=== PATIENT | female | born 1950 | race Caucasian/White ===

== ENCOUNTER → 2020-04-06 | Outpatient (CLI) | payer MEDICARE ==
--- NOTE | 2020-04-06 11:17 | MM ---
Reason for exam: clinical finding. Last mammogram was performed 10 years and 2 months ago. History: Patient is postmenopausal and had first child at age 33. Benign core biopsy of the right breast, 1976. Physical Findings: Nurse Summary: 0.5cm nodule in the left breast at 9 o'clock (nurse kamlesh). MG 3D Diag Mammo W/Cad LUPE Bilateral CC and MLO view(s) were taken. Prior study comparison: February 16, 2010, bilateral digital screening mammogram. January 04, 2006, workup left diagnostic mammogram. There are scattered fibroglandular densities. There are benign appearing round calcifications bilaterally. There is no discrete abnormality. Benign left axillary lymph nodes. These results were verbally communicated with the patient and result sheet given to the patient on 04/06/20. ASSESSMENT: Benign, BI-RAD 2 RECOMMENDATION: Routine screening mammogram of both breasts in 1 year.
--- NOTE | 2020-04-06 11:19 | USB ---
Reason for exam: clinical finding. History: Patient is postmenopausal and had first child at age 33. Benign core biopsy of the right breast, 1976. US Breast BILAT Left complete breast ultrasound includes all four quadrants, the retroareolar region and axilla. Finding demonstrates a 1.0 x 0.3 x 1.0cm oval, hypoechoic lesion at 8 o'clock, in dermal layer seen on previous exam, possible boil or sebaceous cyst. Right complete breast ultrasound includes all four quadrants, the retroareolar region and axilla. Finding demonstrates no cystic or solid lesion seen. These results were verbally communicated with the patient and result sheet given to the patient on 04/06/20. ASSESSMENT: Benign, BI-RAD 2 RECOMMENDATION: Routine screening mammogram of both breasts in 1 year. Manage patient on a clinical basis.
--- NOTE | 2020-04-07 11:20 | BD ---
EXAMINATION TYPE: Axial Bone Density DATE OF EXAM: 04/06/2020 COMPARISON: NONE CLINICAL HISTORY: 69 YR OLD FEMALE.......ICD-10 CODE: Z13.820 OSTEOPOROSIS SCREENING Height: 66 Weight: 243 FRAX RISK QUESTIONS: Secondary Osteoporosis: YES 3. Menopause before 45: YES Current Tobacco Use: YES RISK FACTORS HISTORY OF: Diet low in dairy products/other sources of calcium: YES, A BIT Postmenopausal woman: YES AT [age] YRS OLD Lost more than 2 inches in height since high school: YES Hyperparathyroidism: NO Adrenal Insufficiency: NO MEDICATIONS: Additional Medications: NOTHING Additional History: NOTHING TO NOTE EXAM MEASUREMENTS: Bone mineral densitometry was performed using the [employer] System. Bone mineral density as measured about the Lumbar spine is: ----- L1-L4(G/cm2): 1.690 T Score Values are as follows: ----- L1: 4.2 ----- L2: 3.9 ----- L3: 4.8 ----- L4: 3.9 ----- L1-L4: 4.3 Bone mineral density FIRST BONE DENSITY STUDY AT [facility] Bone mineral density about the R hip (g/cm2): 1.296 Bone mineral density about the L hip (g/cm2): 1.382 T Score values are as follows: -----R Neck: 1.6 -----L Neck: 2.7 -----R Total: 2.3 -----L Total: 3.0 Bone mineral density FIRST BONE DENSITY STUDY AT [facility] FRAX%S: THERE IS A 4.5% CHANCE FOR A MAJOR OSTEOPOROTIC FX AND A 0.1% FOR HIP......PROBABILITY FOR FX IN 10 YRS TIME IMPRESSION: Normal (Values between +1 and -1 indicate normal bone mass). Consider repeating this study in 5 year s or sooner if there is some new clinical indication. NOTE: T-SCORE=SD OF THE YOUNG ADULT MEAN.
== END | disposition home or self-care (01) ==
LOC: RADMAMWWP 09:23
PROVIDERS: ATTEND Family Medicine
DX: N63.20 Unspecified lump in the left breast, unspecified quadrant (principal); Z13.820 Encounter for screening for osteoporosis
CPT/HCPCS: 77080; 77066; 76641; G0279; 77062

== ENCOUNTER 2020-06-08 22:08 | Emergency (ER) | payer MEDICARE ==
[2020-06-08 22:22] VITALS: TEMP 98
[2020-06-08] MEDS ORDERED: SODIUM CHLORIDE 0.9% 1,000 ML IV STA (22:57)
[2020-06-08 23:29] LABS: Basophils # (A) 0.1 k/uL (0-0.2); Basophils % (A) 0 %; Eosinophils # (A) 0.3 k/uL (0-0.7); Eosinophils % (A) 2 %; HCT 46.4 % (34.0-46.0); HGB 16.1 gm/dL (11.4-16.0); Lymphocytes # (A) 3.1 k/uL (1.0-4.8); Lymphocytes % (A) 22 %; MCH 31.5 pg (25.0-35.0); MCHC 34.6 g/dL (31.0-37.0); MCV 90.9 fL (80.0-100.0); Monocytes # (A) 0.7 k/uL (0-1.0); Monocytes % (A) 5 %; Neutrophils # (A) 9.8 k/uL (1.3-7.7); Neutrophils % (A) 69 %; Platelet Count 208 k/uL (150-450); Poikilocytosis Slight; RDW 14.6 % (11.5-15.5); WBC 14.2 k/uL (3.8-10.6)
[2020-06-08 23:37] LABS: Appearance,Urine Turbid (Clear); Bilirubin,Urine Negative (Negative); Blood,Urine Moderate (Negative); Color,Urine Yellow; Glucose,Urine (UA) 3+ (Negative); Hyaline Casts,Urine 49 /lpf (0-2); Ketones,Urine Negative (Negative); Leukocyte Esterase,Urine Large (Negative); Mucus,Urine Few /hpf; Nitrite,Urine Negative (Negative); PH, Urine 5.5 (5.0-8.0); Protein,Urine 2+ (Negative); RBC,Urine 46 /hpf (0-5); Squamous Epithelial Cell,Urine 47 /hpf (0-4); WBC,Urine 155 /hpf (0-5)
--- NOTE | 2020-06-08 23:37 | ED ---
General Adult HPI - General Chief complaint: Urogenital Stated complaint: Poss UTI Time Seen by Provider: 06/08/20 22:27 Source: patient Mode of arrival: ambulatory Limitations: no limitations - History of Present Illness Initial comments: Patient is a 61-year-old female with no reported medical problems presents emergency Department with reported dysuria and generalized weakness. States that her symptoms have been present for the past week. She has malaise with a poor appetite. She was seen in her primary care office on . She had some labs performed however does not know the results. Reports that she otherwise she has not seen a primary care doctor in some time. Admits to chills. Denies fevers. No headaches or visual changes. Denies any neck stiffness. No chest pain or shortness of breath. No abdominal pain. Denies any abnormal vaginal bleeding or discharge. Denies diarrhea, constipation, melenic stools or hematochezia. No other alleviating, precipitating or modifying factors - Related Data Previous Rx's Medication Instructions Recorded Cephalexin [Keflex] 500 mg PO Q12HR #14 cap 06/09/20 Allergies Allergy/AdvReac Type Severity Reaction Status Date / Time No Known Allergies Allergy Verified 06/08/20 22:22 Review of Systems ROS Statement: Those systems with pertinent positive or pertinent negative responses have been documented in the HPI. ROS Other: All systems not noted in ROS Statement are negative. Past Medical History Past Medical History: No Reported History History of Any Multi-Drug Resistant Organisms: None Reported Additional Past Surgical History / Comment(s): lumpectomy right breast Past Psychological History: No Psychological Hx Reported Smoking Status: Current every day smoker Past Alcohol Use History: None Reported Past Drug Use History: None Reported General Exam Limitations: no limitations Course Vital Signs 06/08/20 06/09/20 22:19 00:00 Temperature 98.0 F Pulse Rate 94 84 Respiratory 18 21 Rate Blood Pressure 115/66 151/77 O2 Sat by Pulse 96 96 Oximetry EKG Findings - EKG Comments: EKG Findings:: EKG demonstrates a sinus rhythm with a ventricular rate of 81. P R interval 142. QRS 86. QTC of 428. No acute ST segment elevations or depressions. Inverted T-wave lead 3 Medical Decision Making - Medical Decision Making Upon arrival the patient is placed into room 22. Throat within physical exam was performed. Because the patient's reported malaise I did obtain a 12-lead EKG. Laboratory studies were conducted. She was given a liter bolus of normal saline. Lab studies are remarkable for white count of 14.2. Glucose is elevated at 345. Urinalysis is not a clean catch however grossly infected. She was given a dose of Rocephin. Patient is also given 5 units of insulin. Laboratory studies are rechecked. We will draw a hemoglobin A1c. At this time I am concerned that the patient is an untreated diabetic. She is to follow-up with her primary care physician for further treatment options. She needs to call the morning to make an appointment. She will be placed on Keflex for her UTI. Her primary care physician will have to insure that her infection has improved. The patient agreed to this. Return to the emergency room for any new or worsening symptoms for patient was discharged in stable condition - Lab Data Result diagrams: 06/08/20 23:05 06/08/20 23:05 Lab Results 06/08/20 06/08/20 06/08/20 Range/Units 23:05 23:05 23:05 WBC 14.2 H (3.8-10.6) k/uL RBC 5.10 (3.80-5.40) m/uL Hgb 16.1 H (11.4-16.0) gm/dL Hct 46.4 H (34.0-46.0) % MCV 90.9 (80.0-100.0) fL MCH 31.5 (25.0-35.0) pg MCHC 34.6 (31.0-37.0) g/dL RDW 14.6 (11.5-15.5) % Plt Count 208 (150-450) k/uL Neutrophils % 69 % Lymphocytes % 22 % Monocytes % 5 % Eosinophils % 2 % Basophils % 0 % Neutrophils # 9.8 H (1.3-7.7) k/uL Lymphocytes # 3.1 (1.0-4.8) k/uL Monocytes # 0.7 (0-1.0) k/uL Eosinophils # 0.3 (0-0.7) k/uL Basophils # 0.1 (0-0.2) k/uL Poikilocytosis Slight PT 9.6 (9.0-12.0) sec INR 0.9 (<1.2) APTT 22.3 (22.0-30.0) sec Sodium (137-145) mmol/L Potassium (3.5-5.1) mmol/L Chloride (98-107) mmol/L Carbon Dioxide (22-30) mmol/L Anion Gap mmol/L BUN (7-17) mg/dL Creatinine (0.52-1.04) mg/dL Est GFR (CKD-EPI)AfAm (>60 ml/min/1.73 sqM) Est GFR (CKD-EPI)NonAf (>60 ml/min/1.73 sqM) Glucose (74-99) mg/dL POC Glucose (mg/dL) (75-99) mg/dL POC Glu Enterprise Analyst ID Plasma Lactic Acid Tim (0.7-2.0) mmol/L Calcium (8.4-10.2) mg/dL Total Bilirubin (0.2-1.3) mg/dL AST (14-36) U/L ALT (4-34) U/L Alkaline Phosphatase (38-126) U/L Troponin I (0.000-0.034) ng/mL Total Protein (6.3-8.2) g/dL Albumin (3.5-5.0) g/dL TSH (0.465-4.680) mIU/L Urine Color Yellow Urine Appearance Turbid H (Clear) Urine pH 5.5 (5.0-8.0) Ur Specific [place] 1.020 (1.001-1.035) Urine Protein 2+ H (Negative) Urine Glucose (UA) 3+ H (Negative) Urine Ketones Negative (Negative) Urine Blood Moderate H (Negative) Urine Nitrite Negative (Negative) Urine Bilirubin Negative (Negative) Urine Urobilinogen 2.0 (<2.0) mg/dL Ur Leukocyte Esterase Large H (Negative) Urine RBC 46 H (0-5) /hpf Urine WBC 155 H (0-5) /hpf Urine WBC Clumps Few H (None) /hpf Ur Squamous Epith Cells 47 H (0-4) /hpf Hyaline Casts 49 H (0-2) /lpf Urine Mucus Few H (None) /hpf 06/08/20 06/08/20 06/08/20 Range/Units 23:05 23:05 23:05 WBC (3.8-10.6) k/uL RBC (3.80-5.40) m/uL Hgb (11.4-16.0) gm/dL Hct (34.0-46.0) % MCV (80.0-100.0) fL MCH (25.0-35.0) pg MCHC (31.0-37.0) g/dL RDW (11.5-15.5) % Plt Count (150-450) k/uL Neutrophils % % Lymphocytes % % Monocytes % % Eosinophils % % Basophils % % Neutrophils # (1.3-7.7) k/uL Lymphocytes # (1.0-4.8) k/uL Monocytes # (0-1.0) k/uL Eosinophils # (0-0.7) k/uL Basophils # (0-0.2) k/uL Poikilocytosis PT (9.0-12.0) sec INR (<1.2) APTT (22.0-30.0) sec Sodium 132 L (137-145) mmol/L Potassium 3.9 (3.5-5.1) mmol/L Chloride 99 (98-107) mmol/L Carbon Dioxide 25 (22-30) mmol/L Anion Gap 8 mmol/L BUN 16 (7-17) mg/dL Creatinine 1.07 H (0.52-1.04) mg/dL Est GFR (CKD-EPI)AfAm 62 (>60 ml/min/1.73 sqM) Est GFR (CKD-EPI)NonAf 54 (>60 ml/min/1.73 sqM) Glucose 345 H (74-99) mg/dL POC Glucose (mg/dL) (75-99) mg/dL POC Glu Enterprise Analyst ID Plasma Lactic Acid Tim 1.7 (0.7-2.0) mmol/L Calcium 8.9 (8.4-10.2) mg/dL Total Bilirubin 0.7 (0.2-1.3) mg/dL AST 27 (14-36) U/L ALT 32 (4-34) U/L Alkaline Phosphatase 94 (38-126) U/L Troponin I <0.012 (0.000-0.034) ng/mL Total Protein 6.5 (6.3-8.2) g/dL Albumin 3.9 (3.5-5.0) g/dL TSH 29.800 H (0.465-4.680) mIU/L Urine Color Urine Appearance (Clear) Urine pH (5.0-8.0) Ur Specific [place] (1.001-1.035) Urine Protein (Negative) Urine Glucose (UA) (Negative) Urine Ketones (Negative) Urine Blood (Negative) Urine Nitrite (Negative) Urine Bilirubin (Negative) Urine Urobilinogen (<2.0) mg/dL Ur Leukocyte Esterase (Negative) Urine RBC (0-5) /hpf Urine WBC (0-5) /hpf Urine WBC Clumps (None) /hpf Ur Squamous Epith Cells (0-4) /hpf Hyaline Casts (0-2) /lpf Urine Mucus (None) /hpf 06/09/20 Range/Units 01:00 WBC (3.8-10.6) k/uL RBC (3.80-5.40) m/uL Hgb (11.4-16.0) gm/dL Hct (34.0-46.0) % MCV (80.0-100.0) fL MCH (25.0-35.0) pg MCHC (31.0-37.0) g/dL RDW (11.5-15.5) % Plt Count (150-450) k/uL Neutrophils % % Lymphocytes % % Monocytes % % Eosinophils % % Basophils % % Neutrophils # (1.3-7.7) k/uL Lymphocytes # (1.0-4.8) k/uL Monocytes # (0-1.0) k/uL Eosinophils # (0-0.7) k/uL Basophils # (0-0.2) k/uL Poikilocytosis PT (9.0-12.0) sec INR (<1.2) APTT (22.0-30.0) sec Sodium (137-145) mmol/L Potassium (3.5-5.1) mmol/L Chloride (98-107) mmol/L Carbon Dioxide (22-30) mmol/L Anion Gap mmol/L BUN (7-17) mg/dL Creatinine (0.52-1.04) mg/dL Est GFR (CKD-EPI)AfAm (>60 ml/min/1.73 sqM) Est GFR (CKD-EPI)NonAf (>60 ml/min/1.73 sqM) Glucose (74-99) mg/dL POC Glucose (mg/dL) 327 H (75-99) mg/dL POC Glu Enterprise Analyst ID Ayla Bruce A Plasma Lactic Acid Tim (0.7-2.0) mmol/L Calcium (8.4-10.2) mg/dL Total Bilirubin (0.2-1.3) mg/dL AST (14-36) U/L ALT (4-34) U/L Alkaline Phosphatase (38-126) U/L Troponin I (0.000-0.034) ng/mL Total Protein (6.3-8.2) g/dL Albumin (3.5-5.0) g/dL TSH (0.465-4.680) mIU/L Urine Color Urine Appearance (Clear) Urine pH (5.0-8.0) Ur Specific [place] (1.001-1.035) Urine Protein (Negative) Urine Glucose (UA) (Negative) Urine Ketones (Negative) Urine Blood (Negative) Urine Nitrite (Negative) Urine Bilirubin (Negative) Urine Urobilinogen (<2.0) mg/dL Ur Leukocyte Esterase (Negative) Urine RBC (0-5) /hpf Urine WBC (0-5) /hpf Urine WBC Clumps (None) /hpf Ur Squamous Epith Cells (0-4) /hpf Hyaline Casts (0-2) /lpf Urine Mucus (None) /hpf Disposition Clinical Impression: Acute UTI, Hyperglycemia Disposition: HOME SELF-CARE Condition: Stable Instructions (If sedation given, give patient instructions): Urinary Tract Infection in Women (ED) Additional Instructions: Please follow-up with primary care doctor in regards to your elevated blood sugars. They will also need to recheck that your urinary tract symptoms have improved. Return to the emergency room for any new or worsening symptoms Prescriptions: Cephalexin [Keflex] 500 mg PO Q12HR #14 cap Is patient prescribed a controlled substance at d/c from ED?: No Referrals: Josselin Guererro MD [Primary Care Provider] - 1-2 days Time of Disposition: 01:09
[2020-06-08 23:40] LABS: Albumin 3.9 g/dL (3.5-5.0); Calcium 8.9 mg/dL (8.4-10.2); Potassium 3.9 mmol/L (3.5-5.1); Total Bilirubin 0.7 mg/dL (0.2-1.3); Total Protein 6.5 g/dL (6.3-8.2)
[2020-06-08 23:46] LABS: INR 0.9 (<1.2); Partial Thromboplastin Time 22.3 sec (22.0-30.0); Prothrombin Time 9.6 sec (9.0-12.0)
[2020-06-08] MEDS ORDERED: cefTRIAXone IN SWFI 1,000 MG/10 ML SYRINGE IVP STA (23:59)
[2020-06-08] MEDS ORDERED: SODIUM CHLORIDE 0.9% 1,000 ML IV ONE (23:59)
[2020-06-09] MEDS ORDERED: INSULIN REGULAR 100 UNIT/ML VIAL SQ ONE
[2020-06-09 00:18] VITALS: BP 151/77; PULSE 84; RESP 21
[2020-06-09 01:03] LABS: Glucose,Whole Blood 327 mg/dL (75-99)
[2020-06-09 16:18] LABS: Hemoglobin A1C 9.9 % (4.0-6.0)
== END 2020-06-09 01:24 | disposition home or self-care (01) ==
LOC: EC 22:08
DX: N39.0 Urinary tract infection, site not specified (principal); R73.9 Hyperglycemia, unspecified; F17.200 Nicotine dependence, unspecified, uncomplicated
CPT/HCPCS: 36415; 80053; 81001; 83036; 83605; 84443; 84484; 85025; 85610; 85730; 87086; 93005; 96361; 96374; 99285

== ENCOUNTER 2021-02-11 13:57 | Inpatient (IN) | payer MEDICARE ==
--- NOTE | 2021-02-11 14:15 | ED ---
General Adult HPI - General Chief complaint: Recheck/Abnormal Lab/Rx Stated complaint: SOB Time Seen by Provider: 02/11/21 14:09 Source: patient Mode of arrival: ambulatory Limitations: no limitations - History of Present Illness Initial comments: Patient is a pleasant 70-year-old female presenting to the emergency Department with dyspnea. Symptoms have progressed with the past week. Symptoms are mild at rest and worse with exertion. Family brought pulse oximeter today and pulse ox was fine however heart rate was varying between 1:30 and 160. Patient has no history of abnormal heart rate or arrhythmia. No history of lung problems. No leg pain or leg swelling. Minimal cough. No fever. - Related Data Previous Rx's Medication Instructions Recorded Cephalexin [Keflex] 500 mg PO Q12HR #14 cap 06/09/20 Allergies Allergy/AdvReac Type Severity Reaction Status Date / Time No Known Allergies Allergy Verified 02/11/21 14:05 Review of Systems ROS Statement: Those systems with pertinent positive or pertinent negative responses have been documented in the HPI. ROS Other: All systems not noted in ROS Statement are negative. Constitutional: Denies: fever, chills Eyes: Denies: eye pain ENT: Denies: ear pain Respiratory: Reports: as per HPI, cough, dyspnea Cardiovascular: Denies: chest pain, palpitations Endocrine: Reports: fatigue Gastrointestinal: Denies: abdominal pain Genitourinary: Denies: dysuria Musculoskeletal: Denies: back pain Skin: Denies: rash Neurological: Denies: weakness Past Medical History Past Medical History: Diabetes Mellitus, Thyroid Disorder History of Any Multi-Drug Resistant Organisms: None Reported Additional Past Surgical History / Comment(s): lumpectomy right breast Past Psychological History: No Psychological Hx Reported Smoking Status: Current every day smoker Past Alcohol Use History: None Reported Past Drug Use History: None Reported General Exam Limitations: no limitations General appearance: alert, in no apparent distress Head exam: Present: normocephalic Eye exam: Present: normal appearance Neck exam: Present: normal inspection Respiratory exam: Present: normal lung sounds bilaterally Cardiovascular Exam: Present: tachycardia, irregular rhythm Expanded Peripheral pulses: 2+: Radial (R), Radial (L), Posterior Tibialis (R), Posterior Tibialis (L), Dorsalis Pedis (R), Dorsalis Pedis (L) GI/Abdominal exam: Present: soft. Absent: distended, tenderness Extremities exam: Present: normal inspection. Absent: pedal edema, calf tenderness Neurological exam: Present: alert Psychiatric exam: Present: normal affect, normal mood Skin exam: Present: normal color Course Vital Signs 02/11/21 14:02 Temperature 97.6 F Pulse Rate 170 H Respiratory 20 Rate Blood Pressure 154/102 O2 Sat by Pulse 93 L Oximetry EKG Findings - EKG Comments: EKG Findings:: A. fib with RVR, weight 149. QRS 78. QT to 70. QTc 425. Right axis. Normal QRS. No acute ST change. Medical Decision Making - Medical Decision Making He should reevaluated. Patient and family updated. Case was discussed with Dr. Santamaria, who will admit covering for Dr. Garcia. Patient was started on Cardizem drip. Orders for heparin drip placed. 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 Patient is placed on account liaison secondary to monitoring for tachycardia and intrafibrillation while on Cardizem drip. - Lab Data Result diagrams: 02/11/21 14:37 02/11/21 14:37 Lab Results 02/11/21 02/11/21 02/11/21 Range/Units 14:37 14:37 14:37 WBC 11.4 H (3.8-10.6) k/uL RBC 5.00 (3.80-5.40) m/uL Hgb 15.1 (11.4-16.0) gm/dL Hct 45.8 (34.0-46.0) % MCV 91.7 (80.0-100.0) fL MCH 30.2 (25.0-35.0) pg MCHC 32.9 (31.0-37.0) g/dL RDW 15.3 (11.5-15.5) % Plt Count 191 (150-450) k/uL MPV 7.4 Neutrophils % 69 % Lymphocytes % 21 % Monocytes % 6 % Eosinophils % 3 % Basophils % 1 % Neutrophils # 7.8 H (1.3-7.7) k/uL Lymphocytes # 2.4 (1.0-4.8) k/uL Monocytes # 0.6 (0-1.0) k/uL Eosinophils # 0.3 (0-0.7) k/uL Basophils # 0.1 (0-0.2) k/uL PT 10.3 (9.0-12.0) sec INR 1.0 (<1.2) APTT 23.2 (22.0-30.0) sec Sodium 138 (137-145) mmol/L Potassium 4.6 (3.5-5.1) mmol/L Chloride 105 (98-107) mmol/L Carbon Dioxide 24 (22-30) mmol/L Anion Gap 9 mmol/L BUN 15 (7-17) mg/dL Creatinine 0.93 (0.52-1.04) mg/dL Est GFR (CKD-EPI)AfAm 73 (>60 ml/min/1.73 sqM) Est GFR (CKD-EPI)NonAf 63 (>60 ml/min/1.73 sqM) Glucose 105 H (74-99) mg/dL Calcium 9.4 (8.4-10.2) mg/dL Magnesium 2.0 (1.6-2.3) mg/dL Total Bilirubin 0.6 (0.2-1.3) mg/dL AST 42 H (14-36) U/L ALT 68 H (4-34) U/L Alkaline Phosphatase 78 (38-126) U/L Troponin I (0.000-0.034) ng/mL NT-Pro-B Natriuret Pep pg/mL Total Protein 6.6 (6.3-8.2) g/dL Albumin 4.2 (3.5-5.0) g/dL Free T4 1.35 (0.78-2.19) ng/dL Free T3 pg/mL 2.9 (2.8-5.3) pg/ml Coronavirus (PCR) (Not Detectd) 02/11/21 02/11/21 02/11/21 Range/Units 14:37 14:37 14:37 WBC (3.8-10.6) k/uL RBC (3.80-5.40) m/uL Hgb (11.4-16.0) gm/dL Hct (34.0-46.0) % MCV (80.0-100.0) fL MCH (25.0-35.0) pg MCHC (31.0-37.0) g/dL RDW (11.5-15.5) % Plt Count (150-450) k/uL MPV Neutrophils % % Lymphocytes % % Monocytes % % Eosinophils % % Basophils % % Neutrophils # (1.3-7.7) k/uL Lymphocytes # (1.0-4.8) k/uL Monocytes # (0-1.0) k/uL Eosinophils # (0-0.7) k/uL Basophils # (0-0.2) k/uL PT (9.0-12.0) sec INR (<1.2) APTT (22.0-30.0) sec Sodium (137-145) mmol/L Potassium (3.5-5.1) mmol/L Chloride (98-107) mmol/L Carbon Dioxide (22-30) mmol/L Anion Gap mmol/L BUN (7-17) mg/dL Creatinine (0.52-1.04) mg/dL Est GFR (CKD-EPI)AfAm (>60 ml/min/1.73 sqM) Est GFR (CKD-EPI)NonAf (>60 ml/min/1.73 sqM) Glucose (74-99) mg/dL Calcium (8.4-10.2) mg/dL Magnesium (1.6-2.3) mg/dL Total Bilirubin (0.2-1.3) mg/dL AST (14-36) U/L ALT (4-34) U/L Alkaline Phosphatase (38-126) U/L Troponin I <0.012 (0.000-0.034) ng/mL NT-Pro-B Natriuret Pep 3350 pg/mL Total Protein (6.3-8.2) g/dL Albumin (3.5-5.0) g/dL Free T4 (0.78-2.19) ng/dL Free T3 pg/mL (2.8-5.3) pg/ml Coronavirus (PCR) Not Detected (Not Detectd) - Radiology Data Radiology results: image reviewed (Chest x-ray shows small bilateral pleural effusions and concern for CHF. Mild pulmonary congestion.) Critical Care Time Critical Care Time: Yes Total Critical Care Time: 33 Disposition Clinical Impression: Atrial fibrillation with RVR, CHF (congestive heart failure) Disposition: ADMITTED IP TO THIS HOSP Is patient prescribed a controlled substance at d/c from ED?: No Decision Time: 15:12
[2021-02-11] MEDS ORDERED: DILTIAZEM DRIP BOLUS FROM BAG 1 MG SOLN IV ONE (14:18)
[2021-02-11] MEDS: DILTIAZEM 125 MG in SODIUM CHLORIDE 0.9% 100 ML IV SCH (14:44)
[2021-02-11 14:47] LABS: Basophils # (A) 0.1 k/uL (0-0.2); Basophils % (A) 1 %; Eosinophils # (A) 0.3 k/uL (0-0.7); Eosinophils % (A) 3 %; HCT 45.8 % (34.0-46.0); HGB 15.1 gm/dL (11.4-16.0); Lymphocytes # (A) 2.4 k/uL (1.0-4.8); Lymphocytes % (A) 21 %; MCH 30.2 pg (25.0-35.0); MCHC 32.9 g/dL (31.0-37.0); MCV 91.7 fL (80.0-100.0); Mean Platelet Volume 7.4; Monocytes # (A) 0.6 k/uL (0-1.0); Monocytes % (A) 6 %; Neutrophils # (A) 7.8 k/uL (1.3-7.7); Neutrophils % (A) 69 %; Platelet Count 191 k/uL (150-450); RDW 15.3 % (11.5-15.5); WBC 11.4 k/uL (3.8-10.6)
[2021-02-11 14:57] LABS: Albumin 4.2 g/dL (3.5-5.0); Calcium 9.4 mg/dL (8.4-10.2); Partial Thromboplastin Time 23.2 sec (22.0-30.0); Potassium 4.6 mmol/L (3.5-5.1); Prothrombin Time 10.3 sec (9.0-12.0); Total Bilirubin 0.6 mg/dL (0.2-1.3); Total Protein 6.6 g/dL (6.3-8.2)
--- NOTE | 2021-02-11 15:01 | XR ---
EXAMINATION TYPE: XR chest 1V portable DATE OF EXAM: 02/11/2021 COMPARISON: NONE HISTORY: Short of breath TECHNIQUE: Single view FINDINGS: Heart is enlarged. There is mild pulmonary congestion. There is some blunting of the costop hrenic angles. Thoracic aorta is atheromatous. There are chest leads. IMPRESSION: Mild Congestive heart failure. Bilateral pleural effusions.
[2021-02-11] MEDS ORDERED: ASPIRIN 325 MG TAB PO STA (15:13)
[2021-02-11 15:14] LABS: T4, Free (Free Thyroxine) 1.35 ng/dL (0.78-2.19)
[2021-02-11] MEDS ORDERED: HEPARIN SODIUM 1,000 UN/ML (10ML VL) IV ONE (15:14)
[2021-02-11] MEDS ORDERED: HEPARIN SODIUM 1,000 UN/ML (10ML VL) IV PRN (15:14)
[2021-02-11] MEDS ORDERED: HEPARIN SOD,PORK IN 0.45% NACL 25,000 UNIT in 0.45% NACL 1 250ML.BAG IV SCH (15:15)
[2021-02-11] MEDS: FUROSEMIDE 10 MG/ML 4 ML VIAL IV SCH (16:30)
[2021-02-11] MEDS: NITROGLYCERIN OINT 1 INCH/GM PACKET TOPICAL SCH ×2 (19:32→22:26)
[2021-02-11 20:25] LABS: Glucose,Whole Blood 101 mg/dL (75-99)
[2021-02-11 22:09] LABS: D-Dimer 0.7 mg/L FEU (<0.60); Partial Thromboplastin Time 35.8 sec (22.0-30.0)
--- NOTE | 2021-02-11 23:19 | HP ---
HISTORY AND PHYSICAL DATE OF SERVICE: 02/11/2021 CHIEF COMPLAINTS: Tiredness and weakness and some shortness of breath. HISTORY OF PRESENT ILLNESS: This 70-year-old woman with a past medical history of multiple medical problems including diabetes, hypothyroidism, lumpectomy being followed by Dr. Gilmore ) and Dr. Josselin Guerrero in the outpatient setting, is complaining of tiredness and weakness for the last several days. The symptoms progressed for the last one week and the patient came to [facility] and admitted for further evaluation and treatment. The heart rate was found to be 113 in 116 on the pulse oximeter. The patient noted to have atrial fibrillation with fast ventricular rate. The patient is on Cardizem 5 mg and the rate is slightly better, around 100. White count is 11.4. COVID-19 is negative. TSH was found to be 6.660 but free T4 and free T3 both are normal. Troponins are negative. There is no history of fever, rigors or chills at this time. PAST MEDICAL HISTORY: History of diabetes, hypothyroidism, lumpectomy, history of smoking. HOME MEDICATIONS: Levothyroxine 88 mcg daily. ALLERGIES: None. FAMILY HISTORY: No history of heart disease or strokes in the family. SOCIAL HISTORY: Smoking. REVIEW OF SYSTEMS: ENT No history of diminished hearing or vision. CARDIOVASCULAR As mentioned earlier. RESPIRATORY No cough, no hemoptysis. GI No nausea, vomiting, or diarrhea. No dysuria or hematuria. NERVOUS No numbness or weakness. ALLERGY/IMMUNOLOGY No asthma or hayfever. MUSCULOSKELETAL As mentioned earlier. HEMATOLOGY/ONCOLOGY Negative. ENDOCRINE As mentioned earlier. CONSTITUTIONAL As mentioned earlier. DERMATOLOGY Negative. RHEUMATOLOGY Negative, PSYCHIATRY As mentioned earlier. PHYSICAL EXAMINATION: Alert and oriented x3. Pulse is 115, irregular. Blood pressure 100/60, respiration 18, temperature 98.9, pulse ox 100% on 2 L. HEENT: Conjunctivae normal. Oral mucosa moist. NECK: No jugular venous distention. No lymph node enlargement. CARDIOVASCULAR: S1, S2, muffled. No S3, no S4, RESPIRATORY: Diminished breath sounds at the bases. A few scattered rhonchi and crackles. ABDOMEN: Soft, nontender. LEGS: No edema, no swelling. NERVOUS SYSTEM: Higher functions mentioned earlier. Moves all four limbs. No focal motor or sensory deficits. LYMPHATICS: No lymph node in neck or axilla. SKIN: No rash. JOINTS: No active deforming arthropathy. LABS: WBC 11.4. Otherwise, AST is 43, ALT is 48. TSH is noted. ASSESSMENT: 1. Atrial fibrillation with fast ventricular rate. 2. Shortness of breath, for evaluation. 3. Increased WBC. 4. Elevated AST/ALT, mild hepatitis. 5. Elevated TSH, normal free T3 and free T4. 6. Hypothyroidism. 7. Diabetes mellitus type 2. 8. History of continued ongoing nicotine dependence. 9. Lumpectomy, right breast. 10.Obesity with body mass of 34.5. 11.FULL CODE. RECOMMENDATIONS: In this 70-year-old woman who presented with multiple complex medical issues, we will monitor the patient closely, continue the current management, continue symptomatic treatment. Patient started on Cardizem 5 mg. Cardiology consultation, 2D echo with Doppler. I would also recommend D-dimer. If D-dimer is positive I would recommend a CT angio of the chest. Otherwise, we will resume the home medications. Prognosis guarded because of multiple complex medical issues. Further recommendations to follow. MMODL / IJN: [id number] /
[2021-02-12 02:59] LABS: Appearance,Urine Cloudy (Clear); Bacteria,Urine Rare /hpf; Bilirubin,Urine Negative (Negative); Blood,Urine Negative (Negative); Color,Urine Light Yellow; Glucose,Urine (UA) Negative (Negative); Ketones,Urine Negative (Negative); Leukocyte Esterase,Urine Trace (Negative); Mucus,Urine Rare /hpf; Nitrite,Urine Negative (Negative); PH, Urine 5.5 (5.0-8.0); Protein,Urine Negative (Negative); RBC,Urine 1 /hpf (0-5); Specific Gravity,Urine 1.009 (1.001-1.035); Squamous Epithelial Cell,Urine 12 /hpf (0-4); Urobilinogen,Urine <2.0 mg/dL (<2.0); WBC,Urine 3 /hpf (0-5)
[2021-02-12] MEDS: FUROSEMIDE 10 MG/ML 4 ML VIAL IV SCH ×2 (03:22→18:09)
[2021-02-12 06:05] LABS: Glucose,Whole Blood 113 mg/dL (75-99)
[2021-02-12 06:09] LABS: Basophils # (A) 0.1 k/uL (0-0.2); Basophils % (A) 1 %; Eosinophils # (A) 0.3 k/uL (0-0.7); Eosinophils % (A) 3 %; HGB 14.5 gm/dL (11.4-16.0); Lymphocytes # (A) 2.4 k/uL (1.0-4.8); Lymphocytes % (A) 26 %; MCH 31.4 pg (25.0-35.0); MCHC 34.5 g/dL (31.0-37.0); Mean Platelet Volume 7.2; Monocytes # (A) 0.5 k/uL (0-1.0); Monocytes % (A) 5 %; Neutrophils # (A) 5.7 k/uL (1.3-7.7); Neutrophils % (A) 62 %; Platelet Count 166 k/uL (150-450); Poikilocytosis Slight; RBC 4.62 m/uL (3.80-5.40); RDW 15.3 % (11.5-15.5); WBC 9.1 k/uL (3.8-10.6)
[2021-02-12] MEDS: LEVOTHYROXINE 88 MCG TAB PO SCH (06:14)
[2021-02-12 06:34] LABS: INR 1.1 (<1.2); Partial Thromboplastin Time 43.7 sec (22.0-30.0); Prothrombin Time 11.2 sec (9.0-12.0)
[2021-02-12] MEDS: NITROGLYCERIN OINT 1 INCH/GM PACKET TOPICAL SCH (08:49)
[2021-02-12] MEDS: APIXABAN 5 MG TAB PO SCH ×2 (11:17→20:40)
[2021-02-12] MEDS: METOPROLOL TARTRATE 50 MG TAB PO SCH ×2 (11:17→20:39)
--- NOTE | 2021-02-12 13:00 | P.CRDCN ---
History of Present Illness Consult date: 02/12/21 Consult reason: atrial fibrillation History of present illness: The patient is a 70-year-old female with past medical history of hypothyroidism and current smoker, who presented to the emergency room with worsening shortness of breath. Patient states over the last week/week and a half she had developed worsening shortness of breath. She believes this was associated to her smoking history and was making an effort to quit. Her family purchased a pulse oximeter to check her oxygen, when he noted that her heart rates or jumping between the 1 40s to 160s. She then presented to the emergency room, where she was found to be in A. fib with RVR. The patient states she does have a family history of atrial fibrillation as well as a brother with coronary artery disease. She states she has not had any cardiac history. Previously she was diabetic, however dropped her hemoglobin A1c to 5.5 with diet alone. She states she is feeling better since her arrival. No chest pain or chest pressure. No shortness of breath when ambulating to the bathroom, however she has yet to ambulate in the halls. No orthopnea. No palpitations or heart fluttering. No dizziness, or lightheadedness. DIAGNOSTICS: EKG shows A. fib with RVR with a heart rate of 149 Chest x-ray shows mild congestive heart failure with bilateral pleural effusions Laboratory data shows WBC 9.1, hemoglobin 14.5, hematocrit 42.0, platelet 166, d-dimer 0.70, sodium 138, potassium 4.6, BUN 15, creatinine 0.93, AST 42, ALT 68, troponins less than 0.012, BNP 3350, TSH 6.66, kerr virus testing negative Telemetry overnight shows average heart rates in the low 100s on Cardizem drip PAST MEDICAL HISTORY: Current smoker, hypothyroidism, diabetes mellitus controlled with diet and exercise REVIEW OF SYSTEMS: No fever or chills. No cough or expectoration. No diaphoresis. Patient denies headache, dizziness, blurred vision, double vision. Patient denies any stomach discomfort. No nausea, vomiting. No hematochezia. No hematemesis. Denies any black stools or blood in his stools. Denies dysuria or hematuria. No muscle weakness or numbness. Mild shortness of breath. No chest pain or chest pressure PHYSICAL EXAMINATION: This is a 70-year-old female in no apparent distress at the time of my examination. HEENT: Head is atraumatic, normocephalic. Pupils are equal, round. Sclerae anicteric. Conjunctivae are clear. Mucous membranes of the mouth are moist. Neck is supple. There is no jugular venous distention. No carotid bruit is heard. CHEST EXAMINATION: Lungs are clear to auscultation. No chest wall tenderness is noted on palpation or with deep breathing. HEART EXAMINATION: Heart regular rate and rhythm. S1, S2 heard. No murmurs, gallops or rub. ABDOMEN: Soft, nontender. Bowel sounds are heard. No organomegaly noted. EXTREMITIES: 2+ peripheral pulses with no evidence of peripheral edema and no calf tenderness noted. NEUROLOGIC EXAMINATION: Patient is awake, alert and oriented x3. FINAL ASSESSMENT AND PLAN: New onset A. fib with RVR Congestive heart failure, BNP 3300 Hypothyroidism, TSH 6.6 Current smoker Obesity, BMI 35 History of diabetes PLAN: Transition the patient to oral anticoagulation Start metoprolol 50 mg twice daily Gradually wean off Cardizem drip as tolerated for rate control Further recommendations based on clinical course The patient has been seen and evaluated. Plan of care has been reviewed and agreed upon by Dr Galvan. Past Medical History Past Medical History: Diabetes Mellitus, Thyroid Disorder History of Any Multi-Drug Resistant Organisms: None Reported Additional Past Surgical History / Comment(s): lumpectomy right breast Past Anesthesia/Blood Transfusion Reactions: No Reported Reaction Past Psychological History: No Psychological Hx Reported Smoking Status: Current every day smoker Past Alcohol Use History: None Reported Past Drug Use History: None Reported Medications and Allergies Home Medications Medication Instructions Recorded Confirmed Type Levothyroxine Sodium [Synthroid] 88 mcg PO DAILY 02/11/21 02/11/21 History Allergies Allergy/AdvReac Type Severity Reaction Status Date / Time No Known Allergies Allergy Verified 02/11/21 15:29 Physical Exam Vitals: Vital Signs Temp Pulse Pulse Resp BP BP Pulse Ox 02/12/21 03:44 97.9 F 89 18 116/51 97 02/12/21 01:04 75 20 02/11/21 23:25 98.3 F 75 20 109/61 93 L 02/11/21 20:00 97.9 F 103 H 18 117/62 94 L 02/11/21 19:32 98 18 124/62 98 02/11/21 19:15 98 18 101/88 98 02/11/21 17:42 96.9 F L 115 H 18 123/68 100 02/11/21 16:39 135 H 18 132/62 96 02/11/21 16:19 97.9 F 103 H 18 117/62 94 L 02/11/21 14:02 97.6 F 170 H 20 154/102 93 L Intake and Output 02/11/21 02/12/21 02/12/21 22:59 06:59 14:59 Intake Total 94.196 240 Output Total 1999 Balance 94.196 -1999 240 Intake: Intake, IV Titration 94.196 Amount Diltiazem 125 mg In 34.833 Sodium Chloride 0.9% 100 ml @ 5 MG/HR 5 mls/hr IV .Q24H [facility] Rx#:[id number] Heparin Sod,Pork in 0.45% 59.363 NaCl 25,000 unit In 0.45 % NaCl 1 250ml.bag @ 9.59 UNITS/KG/HR 10.005 mls/ hr IV .Q24H [facility] Rx#: [id number] Oral 240 Output: Urine 1999 Other: Voiding Method Toilet Toilet Weight 104.326 kg 105.5 kg Results 02/12/21 05:44 02/11/21 14:37 Cardiac Enzymes 02/11/21 02/11/21 02/11/21 Range/Units 14:37 14:37 15:41 AST 42 H (14-36) U/L Troponin I <0.012 <0.012 (0.000-0.034) ng/mL 02/11/21 Range/Units 18:46 AST (14-36) U/L Troponin I <0.012 (0.000-0.034) ng/mL Coagulation 02/11/21 02/11/21 02/12/21 Range/Units 14:37 21:05 05:44 PT 10.3 11.2 (9.0-12.0) sec APTT 23.2 35.8 H 43.7 H (22.0-30.0) sec CBC 02/11/21 02/12/21 Range/Units 14:37 05:44 WBC 11.4 H 9.1 (3.8-10.6) k/uL RBC 5.00 4.62 (3.80-5.40) m/uL Hgb 15.1 14.5 (11.4-16.0) gm/dL Hct 45.8 42.0 (34.0-46.0) % Plt Count 191 166 (150-450) k/uL Comprehensive Metabolic Panel 02/11/21 Range/Units 14:37 Sodium 138 (137-145) mmol/L Potassium 4.6 (3.5-5.1) mmol/L Chloride 105 (98-107) mmol/L Carbon Dioxide 24 (22-30) mmol/L BUN 15 (7-17) mg/dL Creatinine 0.93 (0.52-1.04) mg/dL Glucose 105 H (74-99) mg/dL Calcium 9.4 (8.4-10.2) mg/dL AST 42 H (14-36) U/L ALT 68 H (4-34) U/L Alkaline Phosphatase 78 (38-126) U/L Total Protein 6.6 (6.3-8.2) g/dL Albumin 4.2 (3.5-5.0) g/dL Current Medications Generic Name Dose Route Start Last Admin Trade Name Freq PRN Reason Stop Dose Admin Apixaban 5 mg 02/12/21 11:00 02/12/21 11:17 Apixaban 5 Mg Tab PO 5 mg BID [facility] Administration Furosemide 40 mg 02/11/21 16:00 02/12/21 03:22 Furosemide 10 Mg/Ml 4 Ml Vial IV 40 mg Q12H [facility] Administration Diltiazem HCl 125 mg/ Sodium 125 mls @ 5 mls/hr 02/11/21 14:30 02/11/21 19:10 Chloride IV 5 mg/hr .Q24H [facility] 5 mls/hr Infusion 5 MG/HR Levothyroxine Sodium 88 mcg 02/12/21 06:30 02/12/21 06:14 Levothyroxine 88 Mcg Tab PO 88 mcg DAILY@0630 [facility] Administration Metoprolol Tartrate 50 mg 02/12/21 11:00 02/12/21 11:17 Metoprolol Tartrate 50 Mg Tab PO 50 mg BID [facility]ARIS Administration Sodium Chloride 10 ml 02/11/21 21:00 02/11/21 21:39 Sodium Chloride 0.9% Flush 10 Ml Syringe IV Not Given BID [facility]ARIS Intake and Output 05/02/12/21 02/12/21 22:59 06:59 14:59 Intake Total 94.196 240 Output Total 1999 Balance 94.196 -1999 240 Intake: Intake, IV Titration 94.196 Amount Diltiazem 125 mg In 34.833 Sodium Chloride 0.9% 100 ml @ 5 MG/HR 5 mls/hr IV .Q24H [facility] Rx#:[id number] Heparin Sod,Pork in 0.45% 59.363 NaCl 25,000 unit In 0.45 % NaCl 1 250ml.bag @ 9.59 UNITS/KG/HR 10.005 mls/ hr IV .Q24H [facility] Rx#: [id number] Oral 240 Output: Urine 1999 Other: Voiding Method Toilet Toilet Weight 104.326 kg 105.5 kg 02/12/21 05:44 02/11/21 14:37
[2021-02-12 13:33] VITALS: BMI 35.9
[2021-02-12 16:16] LABS: Chol/HDL Ratio 5.42
--- NOTE | 2021-02-12 17:56 | PN ---
PROGRESS NOTE DATE OF SERVICE: 02/12/2021 This is a 70-year-old woman who was admitted with atrial fibrillation with fast ventricular rate. The patient is on Cardizem as well as was given heparin overnight. Cardiology saw the patient and the patient has been started on Eliquis at this time. No chest pain. No palpitations. No fever. PHYSICAL EXAMINATION: Alert and oriented x3. Pulse 80, irregular; blood pressure 124/70, respiration 18, temperature 98.2, pulse ox 98% on room air. HEENT: Conjunctivae normal. Oral mucosa moist. NECK: No jugular venous distention. No lymph node enlargement. CARDIOVASCULAR: S1, S2, muffled. No S3, no S4, RESPIRATORY: Diminished breath sounds at the bases. A few scattered rhonchi. ABDOMEN: Soft. NERVOUS SYSTEM: No focal deficits. LABS: CBC within normal limits. D-dimer is 0.7. UA noted, no evidence of UTI. ASSESSMENT: 1. Atrial fibrillation with fast ventricular rate, paroxysmal. 2. Shortness of breath for evaluation. 3. Increased WBC. 4. Elevated AST/ALT, mild hepatitis. 5. Elevated TSH, normal free T3 and free T4. 6. Hypothyroidism. 7. Diabetes mellitus type 2. 8. History of continued ongoing nicotine dependence. 9. Lumpectomy, right breast. 10.Obesity with body mass index 34.4. 11.FULL CODE. RECOMMENDATIONS AND DISCUSSION: Recommend to continue current medications and symptomatic treatment. Otherwise, 2D echo is pending at this time. Continue with Cardizem drip and as well as Eliquis. Guarded prognosis. Further recommendations to follow. MMODL / IJN: [id number] /
[2021-02-12 19:37] LABS: Glucose,Whole Blood 109 mg/dL (75-99)
[2021-02-12] MEDS: DILTIAZEM 125 MG in SODIUM CHLORIDE 0.9% 100 ML IV SCH (20:39)
[2021-02-13 05:01] VITALS: TEMP 97.8
[2021-02-13 05:44] LABS: Glucose,Whole Blood 114 mg/dL (75-99)
[2021-02-13] MEDS: LEVOTHYROXINE 88 MCG TAB PO SCH (06:09)
[2021-02-13] MEDS: FUROSEMIDE 10 MG/ML 4 ML VIAL IV SCH (06:09)
[2021-02-13] MEDS ORDERED: ASPIRIN 325 MG TAB PO SCH (09:00)
[2021-02-13] MEDS: METOPROLOL TARTRATE 50 MG TAB PO SCH (09:01)
[2021-02-13] MEDS: APIXABAN 5 MG TAB PO SCH (09:02)
[2021-02-13] MEDS ORDERED: METOPROLOL TARTRATE 25 MG TAB PO STA (10:11)
--- NOTE | 2021-02-13 11:19 | ECHOF ---
Referral Reason:AFIB MEASUREMENTS -------- HEIGHT: 170.2 cm WEIGHT: 105.2 kg BP: RVIDd: 2.7 cm (< 3.3) IVSd: 1.1 cm (0.6 - 1.1) LVIDd: 4.0 cm (3.9 - 5.3) LVPWd: 1.3 cm (0.6 - 1.1) IVSs: 1.5 cm LVIDs: 2.6 cm LVPWs: 1.8 cm LAESV Index (A-L): 39.59 ml/m Ao Diam: 3.3 cm (2.0 - 3.7) AV Cusp: 1.8 cm (1.5 - 2.6) LA Diam: 4.2 cm (2.7 - 3.8) RAP: 5.00 mmHg RVSP: 29.71 mmHg FINDINGS -------- This was a technically good study. The left ventricular size is normal. Left ventricular wall thickness is normal. There is moderate global hypokinesis of LV . Overall left ventricular systolic function is severely impaired with, a n EF between 25 - 30 %. Left ventricular fillimg pressure cannot be estimated due to Atrial fibrill ation. The right ventricle is normal in size. LA is severely dilated >40 ml/m2 The right atrial size is normal. The aortic valve is trileaflet and appears structurally normal. The mitral valve is normal. Mild mitral regurgitation is present. The tricuspid valve appears structurally normal. Mild tricuspid regurgitation present. Right vent ricular systolic pressure is normal at < 35 mmHg. There is no pulmonic regurgitation present. The aortic root size is normal. Normal inferior vena cava with normal inspiratory collapse consistent with estimated right atrial pre ssure of 5 mmHg. There is no pericardial effusion. CONCLUSIONS -------- 1. The left ventricular size is normal. 2. Left ventricular wall thickness is normal. 3. There is moderate global hypokinesis of LV . 4. Left ventricular fillimg pressure cannot be estimated due to Atrial fibrillation. 5. LA is severely dilated >40 ml/m2 6. Mild mitral regurgitation is present. 7. Mild tricuspid regurgitation present. 8. There is no pericardial effusion. [employer]: Vaishnavi Kincaid RDCS
[2021-02-13 11:54] LABS: Glucose,Whole Blood 98 mg/dL (75-99)
--- NOTE | 2021-02-13 11:55 | P.PN ---
Subjective Progress Note Date: 02/13/21 The patient is a 70-year-old female with past medical history of hypothyroidism and current smoker, who presented to the emergency room with worsening shortness of breath. Patient states over the last week/week and a half she had developed worsening shortness of breath. She believes this was associated to her smoking history and was making an effort to quit. Her family purchased a pulse oximeter to check her oxygen, when he noted that her heart rates or jumping between the 140s to 160s. She then presented to the emergency room, where she was found to be in A. fib with RVR. 02/12/21 Patient was started on metoprolol in addition to her Cardizem drip. Drip was weaned off overnight. She was transitioned to oral anticoagulation. 02/13/21 No chest pain or chest pressure. No shortness of breath. No orthopnea. No palpitations or heart fluttering. No dizziness, or lightheadedness. The patie nt ambulated in with Dr. Galvan. The patient did not develop any significant shortness of breath. Rates her reasonably well controlled. DIAGNOSTICS: EKG shows A. fib with RVR with a heart rate of 149 Chest x-ray shows mild congestive heart failure with bilateral pleural effusions Echocardiogram shows reduced LV function 40-45% with global hypokinesis Laboratory data shows WBC 9.1, hemoglobin 14.5, hematocrit 42.0, platelet 166, d-dimer 0.70, sodium 138, potassium 4.6, BUN 15, creatinine 0.93, AST 42, ALT 68, troponins less than 0.012, BNP 3350, TSH 6.66, kerr virus testing negative PAST MEDICAL HISTORY: Current smoker, hypothyroidism, diabetes mellitus controlled with diet and exercise REVIEW OF SYSTEMS: No fever or chills. No cough or expectoration. No diaphoresis. Patient denies headache, dizziness, blurred vision, double vision. Patient denies any stomach discomfort. No nausea, vomiting. No hematochezia. No hematemesis. Denies any black stools or blood in his stools. Denies dysuria or hematuria. No muscle weakness or numbness. Mild shortness of breath. No chest pain or chest pressure PHYSICAL EXAMINATION: This is a 70-year-old female in no apparent distress at the time of my examination. HEENT: Head is atraumatic, normocephalic. Pupils are equal, round. Sclerae ani cteric. Conjunctivae are clear. Mucous membranes of the mouth are moist. Neck is supple. There is no jugular venous distention. No carotid bruit is heard. CHEST EXAMINATION: Lungs are clear to auscultation. No chest wall tenderness is noted on palpation or with deep breathing. HEART EXAMINATION: Heart rate irregular. S1, S2 heard. No murmurs, gallops or rub. ABDOMEN: Soft, nontender. Bowel sounds are heard. No organomegaly noted. EXTREMITIES: 2+ peripheral pulses with no evidence of peripheral edema and no calf tenderness noted. NEUROLOGIC EXAMINATION: Patient is awake, alert and oriented x3. VITALS: 98/55, heart rate 77, respiratory rate 16, temperature 97.8F FINAL ASSESSMENT AND PLAN: New onset A. fib with RVR, rate improved with beta paz, weaned off Cardizem drip Congestive heart failure, LV function 40-45%, shortness of breath improved Hypothyroidism, TSH 6.6, increase levothyroxine Current smoker Obesity, BMI 35 History of diabetes PLAN: Increase beta blockers 75 mg twice daily Increase levothyroxine to 100 g daily Continue novel anticoagulation Patient may be discharged from a cardiac standpoint with follow-up in office in 2-[address] Galvan The patient has been seen and evaluated. Plan of care has been reviewed and agreed upon by Dr Galvan. Objective - Vital Signs Vital signs: Vital Signs Temp 97.8 F 02/13/21 04:00 Pulse 77 02/13/21 04:00 Resp 16 02/13/21 04:00 BP 98/55 02/13/21 04:00 Pulse Ox 94 L 02/13/21 04:00 Intake & Output 02/12/21 02/13/21 02/13/21 18:59 06:59 18:59 Intake Total 810.167 606.75 120 Output Total 100 500 Balance 710.167 106.75 120 Weight 105.5 kg 102.3 kg Intake: Intake, IV Titration 90.167 6.75 Amount Diltiazem 125 mg In 90.167 6.75 Sodium Chloride 0.9% 100 ml @ 5 MG/HR 5 mls/hr IV .Q24H [facility] Rx#:[id number] Oral 720 120 Blood Product 600 Output: Urine 100 500 Other: Voiding Method Toilet Toilet # Voids 1 - Labs CBC & Chem 7: 02/12/21 05:44 02/11/21 14:37 Labs: Abnormal Lab Results - Last 24 Hours (Table) 02/12/21 02/12/21 02/13/21 Range/Units 05:44 19:35 05:42 POC Glucose (mg/dL) 109 H 114 H (75-99) mg/dL HDL Cholesterol 26.0 L (40.0-60.0) mg/dL
[2021-02-13 13:59] VITALS: RESP 18
[2021-02-13 14:01] VITALS: BP 113/58; PULSE 78
--- NOTE | 2021-02-13 19:57 | DS ---
DISCHARGE SUMMARY DATE OF SERVICE: 02/13/2021 FINAL DIAGNOSES: 1. Atrial fibrillation with fast ventricular rate paroxysmal. 2. Shortness of breath, possibly cardiomyopathy, possibly tachycardia related. 3. Increased WBC. 4. Elevated AST/ALT and mild hepatitis. 5. Elevated TSH, normal free T3 and T4. 6. Hypothyroidism. 7. Diabetes mellitus type 2. 8. History of continued ongoing nicotine dependence. 9. Lumpectomy, right breast history. 10.Obesity with body mass index 34.4. 11.FULL CODE. DISCHARGE DISPOSITION: The patient will be discharged in stable condition with guarded prognosis. Discharge cleared by Cardiology. HISTORY OF PRESENT ILLNESS: This 70-year-old woman with a past history of multiple medical problems was admitted with atrial fibrillation and multiple other medical problems as mentioned earlier. Cardiology started treating the patient with Cardizem and as well as heparin. The patient improved significantly. Patient will be discharged in stable condition with guarded prognosis. 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 Recommend close followup with primary physician and Cardiology in the outpatient setting. On exam, vitals are stable. Cardiovascular: S1, S2. Abdomen soft. Nervous system: No focal deficits. DISCHARGE ADVICE AND MEDICATIONS: 1. Diet cardiac diet, no added salt, 1200 mL fluid restriction limit. 2. Activity limited until follow up. MEDICATIONS: 1. Eliquis 5 mg p.o. b.i.d. 2. K-Dur 10 mEq daily. 3. Lasix 20 mg daily. 4. Lopressor 70 mg b.i.d. 5. Synthroid 100 mcg p.o. daily. Once again the patient discharged in stable condition with guarded prognosis. MMODL / IJN: [id number] /
[2021-02-13] MEDS ORDERED: METOPROLOL TARTRATE 25 MG TAB PO SCH (21:00)
[2021-02-14] MEDS ORDERED: LEVOTHYROXINE 100 MCG TAB PO SCH (06:30)
--- NOTE | 2021-02-20 17:42 | CDI ---
Documentation Clarification Form Date: 02/20/2021 05:35:19 PM From: Flavio Ford Admit Date: 02/11/2021 03:13:00 PM Patient Name: Zakiya Ruano Visit Number: [id number] Discharge Date: 02/13/2021 02:32:00 PM ATTENTION: The Clinical Documentation Specialists (CDI) and [facility] Coding Staff appreciate your assistance in clarifying documentation. Please respond to the clarification below the line at the bottom and electronically sign. The CDI & [facility] Coding staff will review the response and follow-up if needed. Please note: Queries are made part of the Legal Health Record. If you have any questions, please contact the author of this message via ITS. Dr. Lizzette Contreras Your patient has the documented diagnosis of unspecified CHF [insert date, location]. Additional information regarding the [type, acuity] of CHF is requested. History/Risk Factors: Hx of CHF, atrial fibrillation Clinical Indicators: Echocardiogram Results: L ventricle systolic function EF 25-30 Treatment: IV lasix In your professional opinion, can you please clarify the [acuity and type] of CHF if known? [ ] Acute Systolic Heart Failure (reduced EF) [ ] Chronic Systolic Heart Failure (reduced EF) [ ] Acute on Chronic Systolic Heart Failure (reduced EF) [ ] Acute Diastolic Heart Failure (preserved EF) [ ] Chronic Diastolic Heart Failure (preserved EF) [ ] Acute on Chronic Diastolic Heart Failure (preserved EF) [ ] Acute Systolic & Diastolic Heart Failure [ ] Chronic Systolic & Diastolic Heart Failure [ ] Acute on Chronic Heart Failure Systolic & Diastolic Heart Failure [ ] Other, please specify [ ] Unable to determine Acute Systolic Heart Failure (reduced EF) MTDD
== END 2021-02-13 14:32 | disposition home or self-care (01) | DRG 308 ==
LOC: EC 13:57 → 3SCARD 15:13
PROVIDERS: ADMIT Internal Medicine; ATTEND Internal Medicine
DX: I48.19 Other persistent atrial fibrillation (principal); I50.21 Acute systolic (congestive) heart failure; I42.9 Cardiomyopathy, unspecified; E11.9 Type 2 diabetes mellitus without complications; F17.200 Nicotine dependence, unspecified, uncomplicated; Z20.822 Contact with and (suspected) exposure to COVID-19; E03.9 Hypothyroidism, unspecified; Z79.890 Hormone replacement therapy; K75.9 Inflammatory liver disease, unspecified; E66.9 Obesity, unspecified; Z68.34 Body mass index [BMI] 34.0-34.9, adult; Z82.49 Family history of ischemic heart disease and other diseases of the circulatory system
CPT/HCPCS: 36415; 71045; 80053; 80061; 81001; 83735; 83880; 84439; 84443; 84481; 84484; 85025; 85379; 85610; 85652; 85730; 86140; 87635; 93005; 93306; 96374; 96375; 99291

== ENCOUNTER → 2021-04-08 | Outpatient (CLI) | payer MEDICARE ==
[2021-04-08 08:33] LABS: HCT 46.9 % (34.0-46.0); HGB 14.9 gm/dL (11.4-16.0); MCH 29.8 pg (25.0-35.0); MCHC 31.8 g/dL (31.0-37.0); MCV 93.8 fL (80.0-100.0); Mean Platelet Volume 7.3; Platelet Count 179 k/uL (150-450); RDW 15.4 % (11.5-15.5); WBC 9.6 k/uL (3.8-10.6)
[2021-04-08 08:41] LABS: Potassium 4.5 mmol/L (3.5-5.1)
== END | disposition home or self-care (01) ==
LOC: LABPAT 08:02
PROVIDERS: ATTEND Internal Medicine Clinical Cardiac Electrophysiology
DX: Z01.812 Encounter for preprocedural laboratory examination (principal); I48.19 Other persistent atrial fibrillation
CPT/HCPCS: 36415; 80051; 82565; 84520; 85027

== ENCOUNTER 2021-04-17 08:38 | Day surgery (SDC) | payer MEDICARE ==
[2021-04-13 14:13] VITALS: BMI 36.8
[~2021-04-17 08:38] MED LIST: HYDROmorphone 0.5 MG/0.5 ML SYRINGE IVP PRN; LACTATED RINGERS 1,000 ML IV SCH; MIDAZOLAM 2 MG/2 ML VIAL IV PRN; ONDANSETRON 4 MG/2 ML VIAL IVP ONE; SODIUM CHLORIDE 0.9% 1,000 ML IV SCH
[2021-04-17] MEDS ORDERED: SODIUM CHLORIDE 0.9% 1,000 ML IV ONE (09:00)
[2021-04-17] MEDS ORDERED: DEXTROSE 5% IN WATER 100 ML BAG IV ONE (10:00)
[2021-04-17] MEDS ORDERED: AMIODARONE 50 MG/ML 3 ML VIAL IV ONE ×2 (10:00)
[2021-04-17] MEDS ORDERED: AMIODARONE 100 MG TAB ONE (12:19)
[2021-04-17] MEDS ORDERED: SUCCINYLCHOLINE CHLORIDE 100 MG/5 ML SYR IV ONE (12:19)
[2021-04-17] MEDS ORDERED: LIDOCAINE 1% INJ 10MG/ML (20 ML MDV) ONE ×2 (12:19→12:45)
[2021-04-17] MEDS ORDERED: PROPOFOL 10 MG/ML 20 ML VIAL IV ONE (12:19)
[2021-04-17] MEDS ORDERED: PHENYLEPHRINE-0.9% NACL SYG 1,000 MCG/10 ML SYRINGE ONE (12:19)
[2021-04-17] MEDS ORDERED: fentaNYL (PF) 50 MCG/ML 2 ML AMP ONE (12:19)
[2021-04-17] MEDS ORDERED: PROTAMINE SULFATE 10 MG/ML 5 ML VIAL IV ONE (12:19)
[2021-04-17] MEDS ORDERED: GLYCOPYRROLATE 0.2 MG/ML 2 ML VIAL ONE (12:19)
[2021-04-17] MEDS ORDERED: FUROSEMIDE 10 MG/ML 2 ML VIAL ONE (12:19)
[2021-04-17] MEDS ORDERED: NEOSTIGMINE 1 MG/ML 10 ML VIAL ONE (12:19)
[2021-04-17] MEDS ORDERED: ROCURONIUM 10 MG/ML (5 ML VIAL) IV ONE (12:19)
[2021-04-17] MEDS ORDERED: HEPARIN SODIUM,PORCINE 10,000 UNIT/ML 1 ML VIAL ONE (12:19)
--- NOTE | 2021-04-17 12:47 | P.HPCAR ---
History of Present Illness This is Dr. Galvan dictating an H/P on this patient The patient was interviewed and examined IMPRESSION / ASSESSMENT: New onset atrial fibrillation, recent diagnosis, with RVR Congestive heart failure Severe LV dysfunction Intermittent episodes of PND continue Increased BMI Former smoker Elevated BRANDO VASC score PLAN: Continue anticoagulation with ELIQUIS lifelong Proceed with A. fib ablation with pulmonary vein isolation and linear ablation IV amiodarone 300 mg over an hour preoperatively HPI Patient continues to complain of shortness of breath Occasional episodes of PND Denies any chest discomfort or syncope Denies any fever chills cough expectoration and lower extremity edema ROS: No fever chills or rigors, no cough, phlegm or expectoration, no nausea, vomiting or diarrhea, no hematuria, dysuria, no musculoskeletal complaints, no strokes or seizures, no skin lesions. EXAMINATION: 97.3F, pulse rate 143 beats a minute Blood pressure 144/99 mmHg Breath sounds equal air entry bilaterally no rhonchi no crackles No JVD Heart sounds tachycardic no murmurs line no lower extremity edema REVIEW OF LABS, ECG & MEDICAL DATA Left ventricular ejection fraction 25-30% Severely dilated left atrium Mild MR and mild TR Last BUN 18 and creatinine 1.25 TSH was 6.6 in January Sodium 141, potassium 4.5, BUN 18 and creatinine 1.25 GFR 44 Hemoglobin A1c 5.4 Physical Exam Vitals: Vital Signs Temp Pulse Resp BP Pulse Ox 04/17/21 09:25 97.3 F L 143 H 16 144/99 97 Intake and Output 04/16/21 04/17/21 04/17/21 22:59 06:59 14:59 Intake Total 50 Balance 50 Intake: IV 50 Other: Weight 109 kg Past Medical History Past Medical History: Atrial Fibrillation, Diabetes Mellitus, Thyroid Disorder Additional Past Medical History / Comment(s): See Dr Galvan H&P. patient states was on medication for diabetes previously, but after diet change, A1C is decreased and she is no longer on meds for diabetes. History of Any Multi-Drug Resistant Organisms: None Reported Additional Past Surgical History / Comment(s): lumpectomy right breast benign Past Anesthesia/Blood Transfusion Reactions: No Reported Reaction Smoking Status: Former smoker Physical Examination Vital Signs Temp Pulse Resp BP Pulse Ox 04/17/21 09:25 97.3 F L 143 H 16 144/99 97 Intake and Output 04/16/21 04/17/21 04/17/21 22:59 06:59 14:59 Intake Total 50 Balance 50 Intake: IV 50 Other: Weight 109 kg Results Current Medications Generic Name Dose Route Start Last Admin Trade Name Rossq PRN Reason Stop Dose Admin Hydromorphone HCl 0.5 mg 04/17/21 07:00 Hydromorphone 0.5 Mg/0.5 Ml Syringe IVP 04/17/21 23:00 Q5M PRN Pain Control Sodium Chloride 1,000 mls @ 50 mls/hr 04/17/21 06:33 Saline 0.9% IV 05/17/21 06:34 .Q20H [facility] Lactated Ringer's 1,000 mls @ 20 mls/hr 04/17/21 06:33 Lactated Ringers IV 05/17/21 06:34 .Q24H [facility] Midazolam HCl 2 mg 04/17/21 06:33 Midazolam 2 Mg/2 Ml Vial IV 04/17/21 23:00 ONCE PRN Anxiety Intake and Output 04/16/21 04/17/21 04/17/21 22:59 06:59 14:59 Intake Total 50 Balance 50 Intake: IV 50 Other: Weight 109 kg Patient Weight 04/18/21 06:59 Weight 109 kg
[2021-04-17] MEDS ORDERED: HEPARIN SOD,PORK IN 0.45% NACL 25,000 UNIT in 0.45% NACL 1 250ML.BAG IV ONE (13:12)
[2021-04-17] MEDS ORDERED: HEPARIN SODIUM (1,000 UNIT/ML) 1,000 UNIT in SODIUM CHLORIDE 0.9% 1,000 ML IRRIGATION ONE (13:12)
[2021-04-17] MEDS ORDERED: LIDOCAINE 1% INJ 10MG/ML (20 ML MDV) SQ ONE (13:20)
[2021-04-17] MEDS ORDERED: IOPAMIDOL-370 100ML BTL INJ ONE (15:10)
[2021-04-17] MEDS ORDERED: FUROSEMIDE 10 MG/ML 4 ML VIAL ONE (18:09)
[2021-04-17] MEDS ORDERED: ACETAMINOPHEN TAB 325 MG TAB PO PRN (18:14)
[2021-04-17] MEDS ORDERED: ACETAMINOPHEN IV (For NPO) 1,000 MG in EMPTY BAG 1 BAG IVPB ONE (18:30)
--- NOTE | 2021-04-17 18:30 | P.EPPROC ---
- EP Procedure Note Electrophysiology Procedure Note: PROCEDURE A. fib ablation, pulmonary vein isolation, linear ablation left and right atrium DIAGNOSIS Atrial fibrillation, symptomatic, refractory to therapy Persistent Associated with severe cardio myopathy and congestive heart failure RESULT No left atrial appendage mass seen on intracardiac echo Successful A. fib ablation/pulmonary vein isolation of all veins using cryo- ablation followed by linear ablation Linear ablation left atrial roof Linear ablation in the ridge between the left atrial appendage and the left- sided pulmonary veins Linear ablation in the posterior septum from the roof of the LAD to the right inferior pulmonary vein, resulting in termination of atrial fibrillation Induction of atrial tachycardia with atrial pacing, which organized to typical atrial flutter Entrainment mapping followed by successful atrial flutter ablation, with demonstrated right direction block with differential pacing Complete entrance block in all 4 veins confirmed, scar mapping in the roof, scar mapping in the septum of the left atrium Elevated mean left atrial pressures 21 mmHg, elevated mean RA pressure 21 mmHg No evidence for phrenic nerve injury Esophageal deflection YES PROCEDURE DETAILS Patient was brought to the EP lab in a fasting state. Written informed consent was obtained prior to the procedure. Procedure performed under general anesthesia After initial muscle relaxant use, muscle relaxants were not given thereafter in order to assess phrenic nerve during procedure. Patient prepped and draped as per protocol Full cryo-set up with standard preparation of the cryoablation tools done. Femoral Venous access obtained on the right and left groins Venous and arterial Sheaths placed. Diagnostic catheters for the high right atrium, phrenic nerve stimulation and pacing, His bundle, RV and coronary sinus placed Intracardiac echo catheter placed. Long sheath placed in the right atrium Left and right transseptal catheterization performed under intracardiac echo guidance. Intravenous heparin with aCT above 300 Later, catheter positioning and balloon positioning in the left atrium, under intracardiac echo guidance Diagnostic EP study with Coronary sinus pacing and recording Baseline measurements HV interval 37 ms After termination of atrial fibrillation during RF, sinus cycle length 802 ms, NJ interval 194 ms, QRS 95 ms and QT interval 453 ms Transseptal catheterization performed RA pressure 36/7/21 LA pressure 30/4/21 and at the end of the procedure after IV Lasix, LA pressure 22/9/17 Transseptal catheterization performed with standard sheath. The cryoablation sheath was then placed with an over the wire exchange without any acute comp lications. All 4 pulmonary veins were isolated in the following sequence: Left superior followed by left inferior followed by right superior followed by right inferior The cryo-ablation balloon was placed at the os of each vein 1.5 mL of IV dye was injected to confirm an occluded vein Goal during cryoablation was to achieve complete occlusion of the pulmonary vein, achieve -30 degrees C at 30 seconds and achieve -40 degrees C at 60 seconds and a time to effect of less than 60-90 seconds, . If not the balloon was repositioned to obtain this result After completion of Cryoblation with durations from 180-240 seconds, entrance block was confirmed with the Attain circular catheter in a roving fashion around the antrum of the pulmonary veins Phrenic nerve pacing was performed from the SVC, right innominate vein area and diaphragm voltage was monitored. Diaphragmatic contractions were also monitored manually for strength of contraction. Parameter goals for each cryo freeze Complete occlusion of the appropriate vein -30 degrees C by 30 seconds -40 degrees C by 60 seconds Minimum between minus 40-55 degrees C Thaw time greater than 10 seconds Balloon visualized by intracardiac echo The esophagus was intubated. Esophageal Temperature monitoring with a CIRCA catheter formed. Esophageal deflection for hypothermia of the esophagus below 30 degrees C Left superior pulmonary vein Complete isolation, entrance block Left inferior pulmonary vein Complete isolation, entrance block Right superior pulmonary vein, during phrenic nerve pacing Complete isolation, entrance block Right inferior pulmonary vein, during phrenic nerve pacing Complete isolation, entrance block At the end of the procedure the Achieve catheter was once again used to check for entrance block Phrenic nerve stimulation was performed to confirm diaphragmatic stimulation the end of the procedure Cine fluoroscopy was performed at the very end of the procedure to confirm movement of both diaphragms with inspiration and expiration The sheath was exchanged. The RF ablation catheter was placed Voltage mapping was performed Coronary veins are completely isolated Small gap in the left atrial roof underwent RF linear ablation and later in sinus rhythm 40s mapping showed a complete block Linear ablation in the left atrial appendage between the left-sided pulmonary veins and the left atrial appendage. Left atrial appendage carefully mapped with intracardiac echo Posterior septum was mapped and linear ablation was performed in the posterior septum from the roof down to the right inferior pulmonary vein Termination of atrial fibrillation in the mid posterior septum. Additional RF ablations applied around this successful site Then with atrial pacing and atrial tachycardia was induced that quickly organized to typical atrial flutter Cavo tricuspid isthmus was mapped. The isthmus was one large pouch Entrainment mapping was performed RF ablation was performed in the cavo tricuspid isthmus Complete line of block was made Differential pacing confirmed bidirectional block At the end of the procedure the patient was extubated Heparin was reversed Venous sheaths were removed and hemostasis assured PROCEDURES PERFORMED Diagnostic EP study CS pacing and recording Left and right transseptal catheterization 3D mapping Intracardiac echocardiography Pulmonary vein isolation with transseptal and comprehensive EPS, [id number] Left atrial roof line, [id number] Linear ablation, left atrium, ridge between left-sided veins and JAZ +[id number] Linear ablation posterior septum of the left atrium with termination of atrial fibrillation Linear ablation cavo tricuspid isthmus with termination of atrial flutter
--- NOTE | 2021-04-17 18:33 | P.PRLE ---
RE: BinduZakiay Tk Dear Josselin Zakiya Ruano has persistent atrial fibrillation with congestive heart failure and severe cardio myopathy She underwent successful mapping and ablation for atrial fibrillation with pulmonary vein isolation and linear ablation at multiple sites in the left atrium I was able to terminate her atrial fibrillation in the posterior left atrial septum Following that with atrial pacing we are able to induce typical atrial flutter This is also successfully ablated She has a very dilated left atrium with elevated left atrial pressures of 21 mmHg, mean LA pressure Hopefully with maintenance sinus rhythm LV function will improve along with a heart failure status I'm inclined to treat her with amiodarone for about 3 months and hopefully thereafter we can stop it She will continue ELIQUIS lifelong Thank you for entrusting me with the care of the patient Warm regards Sincerely Mane Galvan
--- NOTE | 2021-04-17 18:36 | P.EPPROC ---
- EP Procedure Note Electrophysiology Procedure Note: This is a long procedure for Mrs. Ruano Transseptal catheterization was difficult on account of the size of the right atrium and the rotation of the heart The left atrium was enlarged Multiple sites of linear ablation were performed in the left and right atrium with successful termination of atrial fibrillation and atrial flutter Termination of atrial fibrillation occurred Following that atrial tachycardia was induced which organized atrial flutter and right-sided mapping and ablation was performed in the cava tricuspid isthmus Procedure took about over 5 hours
[2021-04-17] MEDS: APIXABAN 5 MG TAB PO SCH (21:12)
[2021-04-17] MEDS: AMIODARONE 200 MG TAB PO SCH (21:12)
[2021-04-18 02:19] VITALS: RESP 18
[2021-04-18] MEDS ORDERED: LEVOTHYROXINE 100 MCG TAB PO SCH (06:30)
[2021-04-18] MEDS: APIXABAN 5 MG TAB PO SCH (07:48)
[2021-04-18] MEDS: AMIODARONE 200 MG TAB PO SCH (07:48)
[2021-04-18] MEDS ORDERED: SPIRONOLACTONE 25 MG TAB PO SCH (09:00)
[2021-04-18] MEDS ORDERED: METOPROLOL SUCCINATE (ER) 50 MG TAB.ER.24H PO SCH (09:00)
[2021-04-18 09:03] LABS: African American GFR (CKD) 55 (>60 ml/min/1.73 sqM); Anion Gap 10 mmol/L; Blood Urea Nitrogen 21 mg/dL (7-17); Calcium 8.9 mg/dL (8.4-10.2); Carbon Dioxide 26 mmol/L (22-30); Chloride 102 mmol/L (98-107); Glucose 137 mg/dL (74-99); Non-African American GFR(CKD) 48 (>60 ml/min/1.73 sqM); Potassium 3.7 mmol/L (3.5-5.1); Sodium 138 mmol/L (137-145)
[2021-04-18 14:53] VITALS: BP 92/66; PULSE 76; TEMP 98.2
--- NOTE | 2021-04-18 16:17 | P.DS ---
Providers Attending physician: Mane Galvan Primary care physician: [facility] Course: Patient is doing well. In she has a mild sore throat but no chest discomfort no dizziness lightheadedness. She is ablating the room She has no hematoma which she has a constant ooze from the incision site, where access was obtained On examination blood pressure 119/75 mmHg afebrile 98.2F pulse rate in the 70s with occasional PACs Heart sounds S1 and S2 are normal Lungs are clear no rhonchi no crackles Abdomen soft nontender Extremities are warm no edema Hypertension. Intermittently today and then subsequently I stitched the incision in the right groin to prevent any further bruising She has absolutely no hematoma or swelling beneath The right groin is also healed well Labs are reviewed. Sodium 138, potassium 3.7, BUN 21 creatinine 1.17 Impression Persistent atrial fibrillation nonischemic cardio myopathy Congestive heart failure class 3 Status post successful A. fib ablation with PVI and linear ablation and successful atrial flutter ablation Atrial fibrillation was terminated in the septum Subsequently atrial flutter was induced with atrial pacing and this was also successfully ablated Plan Amiodarone 400 mg by mouth daily for one month then 200 mg daily for the next 2- 3 months Continue anticoagulation with ELIQUIS Maximize heart failure medications with metoprolol succinate and spironolactone Subsequently able and interest to Reassessment of LV function in about 6-8 weeks I will see her on Saturday this week and remove sutures from the right groin Plan - Discharge Summary Discharge Rx Participant: No New Discharge Prescriptions: New Amiodarone [Cordarone] 200 mg PO BID #180 tab Continue Apixaban [Eliquis] 5 mg PO BID #60 tab Spironolactone 25 mg PO DAILY Levothyroxine Sodium [Synthroid] 100 mcg PO DAILY Metoprolol Succinate (ER) [Toprol XL] 75 mg PO DAILY Discharge Medication List Apixaban [Eliquis] 5 mg PO BID #60 tab 02/13/21 [Rx] Levothyroxine Sodium [Synthroid] 100 mcg PO DAILY 04/13/21 [History] Metoprolol Succinate (ER) [Toprol XL] 75 mg PO DAILY 04/13/21 [History] Spironolactone 25 mg PO DAILY 04/13/21 [History] Amiodarone [Cordarone] 200 mg PO BID #180 tab 04/17/21 [Rx] Follow up Appointment(s)/Referral(s): Mane Galvan MD [STAFF PHYSICIAN] - 04/21/21 9:00 am Activity/Diet/Wound Care/Special Instructions: Post EP study - Ablation instructions 1. Keep access sites dry for 2 days. 2. No heavy lifting or straining for 2 days. 3. Avoid bending the hips repeatedly for 2 days. 4. You may go up and down stairs slowly Call if the following is noted 1. Bleeding, increasing swelling or pain at the access sites. 2. Increasing chest discomfort, especially upon taking a deep breath. 3. Increasing shortness of breath, at rest or with exertion. 4. Undue cough / phlegm 5. Difficulty or pain while swallowing. 6. Pain or change in color in the extremities. 7. Fever, chills, rigors. 8. Increasing headache or neurologic symptoms. 9. Dizziness, fainting, palpitations Continue ELIQUIS Amiodarone 400 mg by mouth daily for one month Thereafter decrease amiodarone to 200 mg once daily for the next 2 months Stop amiodarone after 3 months Continue metoprolol and spironolactone and limits her Discharge Disposition: HOME SELF-CARE
== END 2021-04-18 17:20 | disposition home or self-care (01) ==
LOC: CATHEP 08:38 → 6NMEDSUR 18:02 → CATHEP 04-18 17:20
PROVIDERS: ATTEND Internal Medicine Clinical Cardiac Electrophysiology
DX: I48.19 Other persistent atrial fibrillation (principal); I48.92 Unspecified atrial flutter; I42.0 Dilated cardiomyopathy; I11.0 Hypertensive heart disease with heart failure; I50.23 Acute on chronic systolic (congestive) heart failure; E66.9 Obesity, unspecified; Z68.37 Body mass index [BMI] 37.0-37.9, adult; E03.9 Hypothyroidism, unspecified; Z87.891 Personal history of nicotine dependence; R06.09 Other forms of dyspnea; E11.9 Type 2 diabetes mellitus without complications; E07.9 Disorder of thyroid, unspecified; Z98.890 Other specified postprocedural states; Z79.01 Long term (current) use of anticoagulants; Z79.890 Hormone replacement therapy; Z79.899 Other long term (current) drug therapy; Z98.51 Tubal ligation status
CPT/HCPCS: 93662; 93613; 93656; 93657; 80048; C1894 ×3; C1769 ×5; C1760; C1730 ×2; C1759; C1893; C1733; C1766; C1732; J2001; J1644 ×2; J0131; Q9967

== ENCOUNTER 2021-05-06 09:10 | Observation (INO) | payer MEDICARE ==
[2021-05-06] MEDS ORDERED: ASPIRIN 81 MG PO STA (09:40)
[2021-05-06] MEDS ORDERED: NITROGLYCERIN SL TABS 0.4 MG TAB SUBLINGUAL STA (09:40)
[2021-05-06] MEDS ORDERED: NITROGLYCERIN OINT 1 INCH/GM PACKET TOPICAL STA (09:40)
--- NOTE | 2021-05-06 09:56 | ED ---
General Adult HPI - General Chief complaint: Chest Pain Stated complaint: chest pain Time Seen by Provider: 05/06/21 09:10 Source: patient, RN notes reviewed, old records reviewed Mode of arrival: wheelchair Limitations: no limitations - History of Present Illness Initial comments: This is a 70-year-old female who presents emergency department with past medical history significant for 50 years of smoking and borderline diabetic is on eliquis for atrial fibrillation and recently had an ablation. Patient comes in today because she started having chest pressure about 3:00 in the morning was short of breath and diaphoretic she states the pain is better but not gone away completely. Patient denies any nausea. Patient denies any headache patient de nies numbness weakness. Patient denies lightheadedness or dizziness. Patient denies abdominal pain patient denies nausea vomiting or diarrhea. Patient states she's been feeling bad ever since she had the ablation but this chest pain is new. - Related Data Home Medications Medication Instructions Recorded Confirmed Levothyroxine Sodium [Synthroid] 100 mcg PO [id number] 04/13/21 05/06/21 Metoprolol Succinate (ER) [Toprol 75 mg PO DAILY 04/13/21 05/06/21 XL] Spironolactone 25 mg PO DAILY 04/13/21 05/06/21 Furosemide [Lasix] 40 mg PO DAILY PRN 05/06/21 05/06/21 Previous Rx's Medication Instructions Recorded Apixaban [Eliquis] 5 mg PO BID #60 tab 02/13/21 Amiodarone [Cordarone] 200 mg PO BID #180 tab 04/17/21 Allergies Allergy/AdvReac Type Severity Reaction Status Date / Time No Known Allergies Allergy Verified 05/06/21 10:41 Review of Systems ROS Statement: Those systems with pertinent positive or pertinent negative responses have been documented in the HPI. ROS Other: All systems not noted in ROS Statement are negative. Past Medical History Past Medical History: Atrial Fibrillation, Diabetes Mellitus, Thyroid Disorder History of Any Multi-Drug Resistant Organisms: None Reported Past Surgical History: Cardiac Ablation, Tubal Ligation Additional Past Surgical History / Comment(s): lumpectomy right breast Past Anesthesia/Blood Transfusion Reactions: No Reported Reaction Past Psychological History: No Psychological Hx Reported Smoking Status: Current every day smoker Past Alcohol Use History: None Reported Past Drug Use History: None Reported General Exam - General Exam Comments Initial Comments: GENERAL: Patient is well-developed and well-nourished. Patient is nontoxic and well- hydrated and is in mild distress. ENT: Neck is soft and supple. No significant lymphadenopathy is noted. Oropharynx is clear. Moist mucous membranes. Neck has full range of motion without elici ting any pain. EYES: The sclera were anicteric and conjunctiva were pink and moist. Extraocular m ovements were intact and pupils were equal round and reactive to light. Eyelids were unremarkable. PULMONARY: Unlabored respirations. Good breath sounds bilaterally. No audible rales rhonchi or wheezing was noted. CARDIOVASCULAR: There is a regular rate and rhythm without any murmurs gallops or rubs. ABDOMEN: Soft and nontender with normal bowel sounds. SKIN: Skin is clear with no lesions or rashes and otherwise unremarkable. NEUROLOGIC: Patient is alert and oriented x3. Cranial nerves II through XII are grossly intact. Motor and sensory are also intact. Normal speech, volume and content. Symmetrical smile. MUSCULOSKELETAL: Normal extremities with adequate strength and full range of motion. No lower extremity swelling or edema. No calf tenderness. LYMPHATICS: No significant lymphadenopathy is noted PSYCHIATRIC: Normal psychiatric evaluation. Limitations: no limitations Course Vital Signs 05/06/21 09:11 Temperature 97.4 F L Pulse Rate 73 Respiratory 17 Rate Blood Pressure 143/74 O2 Sat by Pulse 95 Oximetry Medical Decision Making - Medical Decision Making EKG shows sinus bradycardia 51 bpm ID interval is 186 QRS is 92 QT interval is 502 QTC is 462. Patient's EKG shows no ST segment elevation or depression. Chest x-ray shows no acute abnormality. Patient got nitro patient stated that seemed to decrease her pain. [facility] admitted the patient I wrote admitting orders. - Lab Data Result diagrams: 05/06/21 10:00 05/06/21 10:00 Lab Results 05/06/21 05/06/21 05/06/21 Range/Units 10:00 10:00 10:00 WBC 10.7 H (3.8-10.6) k/uL RBC 4.89 (3.80-5.40) m/uL Hgb 14.7 (11.4-16.0) gm/dL Hct 45.1 (34.0-46.0) % MCV 92.2 (80.0-100.0) fL MCH 30.0 (25.0-35.0) pg MCHC 32.6 (31.0-37.0) g/dL RDW 16.6 H (11.5-15.5) % Plt Count 171 (150-450) k/uL MPV 7.3 Neutrophils % 82 % Lymphocytes % 11 % Monocytes % 4 % Eosinophils % 1 % Basophils % 1 % Neutrophils # 8.8 H (1.3-7.7) k/uL Lymphocytes # 1.2 (1.0-4.8) k/uL Monocytes # 0.4 (0-1.0) k/uL Eosinophils # 0.1 (0-0.7) k/uL Basophils # 0.1 (0-0.2) k/uL Poikilocytosis Slight Anisocytosis Slight PT 11.1 (9.0-12.0) sec INR 1.0 (<1.2) APTT 29.8 (22.0-30.0) sec Sodium 139 (137-145) mmol/L Potassium 4.4 (3.5-5.1) mmol/L Chloride 104 (98-107) mmol/L Carbon Dioxide 25 (22-30) mmol/L Anion Gap 10 mmol/L BUN 21 H (7-17) mg/dL Creatinine 1.43 H (0.52-1.04) mg/dL Est GFR (CKD-EPI)AfAm 43 (>60 ml/min/1.73 sqM) Est GFR (CKD-EPI)NonAf 37 (>60 ml/min/1.73 sqM) Glucose 155 H (74-99) mg/dL Calcium 10.0 (8.4-10.2) mg/dL Magnesium 2.2 (1.6-2.3) mg/dL Total Bilirubin 0.8 (0.2-1.3) mg/dL AST 20 (14-36) U/L ALT 14 (4-34) U/L Alkaline Phosphatase 67 (38-126) U/L Troponin I (0.000-0.034) ng/mL Total Protein 7.0 (6.3-8.2) g/dL Albumin 4.5 (3.5-5.0) g/dL 05/06/21 Range/Units 10:00 WBC (3.8-10.6) k/uL RBC (3.80-5.40) m/uL Hgb (11.4-16.0) gm/dL Hct (34.0-46.0) % MCV (80.0-100.0) fL MCH (25.0-35.0) pg MCHC (31.0-37.0) g/dL RDW (11.5-15.5) % Plt Count (150-450) k/uL MPV Neutrophils % % Lymphocytes % % Monocytes % % Eosinophils % % Basophils % % Neutrophils # (1.3-7.7) k/uL Lymphocytes # (1.0-4.8) k/uL Monocytes # (0-1.0) k/uL Eosinophils # (0-0.7) k/uL Basophils # (0-0.2) k/uL Poikilocytosis Anisocytosis PT (9.0-12.0) sec INR (<1.2) APTT (22.0-30.0) sec Sodium (137-145) mmol/L Potassium (3.5-5.1) mmol/L Chloride (98-107) mmol/L Carbon Dioxide (22-30) mmol/L Anion Gap mmol/L BUN (7-17) mg/dL Creatinine (0.52-1.04) mg/dL Est GFR (CKD-EPI)AfAm (>60 ml/min/1.73 sqM) Est GFR (CKD-EPI)NonAf (>60 ml/min/1.73 sqM) Glucose (74-99) mg/dL Calcium (8.4-10.2) mg/dL Magnesium (1.6-2.3) mg/dL Total Bilirubin (0.2-1.3) mg/dL AST (14-36) U/L ALT (4-34) U/L Alkaline Phosphatase (38-126) U/L Troponin I 0.014 (0.000-0.034) ng/mL Total Protein (6.3-8.2) g/dL Albumin (3.5-5.0) g/dL Disposition Clinical Impression: Stable angina pectoris Disposition: ADMITTED IP TO THIS [facility] Referrals: Josselin Guerrero MD [Primary Care Provider] - 1-2 days Time of Disposition: 10:58
[2021-05-06 10:18] LABS: Anisocytosis Slight; Basophils # (A) 0.1 k/uL (0-0.2); Basophils % (A) 1 %; Eosinophils # (A) 0.1 k/uL (0-0.7); Eosinophils % (A) 1 %; HCT 45.1 % (34.0-46.0); HGB 14.7 gm/dL (11.4-16.0); Lymphocytes # (A) 1.2 k/uL (1.0-4.8); Lymphocytes % (A) 11 %; MCHC 32.6 g/dL (31.0-37.0); MCV 92.2 fL (80.0-100.0); Mean Platelet Volume 7.3; Monocytes # (A) 0.4 k/uL (0-1.0); Monocytes % (A) 4 %; Neutrophils # (A) 8.8 k/uL (1.3-7.7); Neutrophils % (A) 82 %; Platelet Count 171 k/uL (150-450); Poikilocytosis Slight; RBC 4.89 m/uL (3.80-5.40); RDW 16.6 % (11.5-15.5); WBC 10.7 k/uL (3.8-10.6)
[2021-05-06 10:26] LABS: Albumin 4.5 g/dL (3.5-5.0); Magnesium 2.2 mg/dL (1.6-2.3); Potassium 4.4 mmol/L (3.5-5.1); Total Bilirubin 0.8 mg/dL (0.2-1.3)
--- NOTE | 2021-05-06 10:26 | XR ---
EXAMINATION TYPE: XR chest 2V DATE OF EXAM: 05/06/2021 COMPARISON: Chest radiograph 02/11/2021 HISTORY: Chest pain TECHNIQUE: Frontal and lateral views of the chest are obtained. FINDINGS: There is no focal air space opacity, pleural effusion, or pneumothorax seen. The cardiac silhouette size is mildly enlarged similar to prior. The osseous structures are intact. IMPRESSION: Stable cardiomegaly. No acute process.
[2021-05-06 10:47] LABS: Partial Thromboplastin Time 29.8 sec (22.0-30.0); Prothrombin Time 11.1 sec (9.0-12.0)
[2021-05-06] MEDS ORDERED: NITROGLYCERIN SL TABS 0.4 MG TAB SUBLINGUAL PRN (10:58)
[2021-05-06] MEDS: NITROGLYCERIN OINT 1 INCH/GM PACKET TOPICAL SCH ×3 (11:59→23:11)
[2021-05-06] MEDS: ASPIRIN 325 MG TAB PO SCH (12:00)
--- NOTE | 2021-05-06 19:30 | P.HPIM ---
History of Present Illness H&P Date: 05/06/21 Chief Complaint: Chest pressure 70-year-old female who presents emergency department with past medical history significant for 50 years of smoking and borderline diabetic is on eliquis for atrial fibrillation and recently had an ablation. Patient comes in today because she started having chest pressure about 3:00 in the morning was short of breath and diaphoretic she states the pain is better but not gone away completely. Patient denies any nausea. Patient denies any headache patient denies numbness weakness. Patient denies lightheadedness or dizziness. Patient denies abdominal pain patient denies nausea vomiting or diarrhea. Patient states she's been feeling bad ever since she had the ablation but this chest pain is new. Workup in ED visit EKG reveals sinus bradycardia with no acute ST or T-wave changes; chest x-rays are unremarkable Labs are reviewed and CBC WBC of 10.7, hemoglobin 14.7 and platelet count of 171; sodium 139, potassium 4.4, BUN 21 with creatinine of 1.43, glucose 155; first troponin 0.014 Review of Systems REVIEW OF SYSTEMS: CONSTITUTIONAL: No fever, no malaise, no fatigue. HEENT: No recent visual problems or hearing problems. Denied any sore throat. CARDIOVASCULAR: No chest pain, orthopnea, PND, no palpitations, no syncope. PULMONARY: No shortness of breath, no cough, no hemoptysis. GASTROINTESTINAL: No diarrhea, no nausea, no vomiting, no abdominal pain. NEUROLOGICAL: No headaches, no weakness, no numbness. HEMATOLOGICAL: Denies any bleeding or petechiae. GENITOURINARY: Denies any burning micturition, frequency, or urgency. MUSCULOSKELETAL/RHEUMATOLOGICAL: Denies any joint pain, swelling, or any muscle pain. ENDOCRINE: Denies any polyuria or polydipsia. The rest of the 14-point review of systems is negative. Past Medical History Past Medical History: Atrial Fibrillation, Diabetes Mellitus, Thyroid Disorder History of Any Multi-Drug Resistant Organisms: None Reported Past Surgical History: Cardiac Ablation, Tubal Ligation Additional Past Surgical History / Comment(s): lumpectomy right breast Past Anesthesia/Blood Transfusion Reactions: No Reported Reaction Past Psychological History: No Psychological Hx Reported Smoking Status: Current every day smoker Past Alcohol Use History: None Reported Past Drug Use History: None Reported Medications and Allergies Home Medications Medication Instructions Recorded Confirmed Type Apixaban [Eliquis] 5 mg PO BID #60 tab 02/13/21 05/06/21 Rx Levothyroxine Sodium [Synthroid] 100 mcg PO AC-BRKFST 04/13/21 05/06/21 History Metoprolol Succinate (ER) [Toprol 75 mg PO DAILY 04/13/21 05/06/21 History XL] Spironolactone 25 mg PO DAILY 04/13/21 05/06/21 History Amiodarone [Cordarone] 200 mg PO BID #180 tab 04/17/21 05/06/21 Rx Furosemide [Lasix] 40 mg PO DAILY PRN 05/06/21 05/06/21 History Allergies Allergy/AdvReac Type Severity Reaction Status Date / Time No Known Allergies Allergy Verified 05/06/21 10:41 Physical Exam Vitals: Vital Signs Temp Pulse Resp BP Pulse Ox 05/06/21 13:30 48 L 18 142/75 98 05/06/21 12:15 43 L 16 140/78 96 05/06/21 09:11 97.4 F L 73 17 143/74 95 Intake and Output 05/06/21 05/06/21 05/06/21 06:59 14:59 22:59 Other: Weight 106.594 kg - Constitutional General appearance: Present: average body habitus, cooperative, no acute distress - EENT Eyes: Present: anicteric sclerae, EOMI, PERRLA, normal appearance ENT: Present: hearing grossly normal, normal oropharynx Ears: bilateral: normal - Neck Neck: Present: normal ROM. Absent: lymphadenopathy, rigidity, thyromegaly Carotids: negative: bruit present Thyroid: bilateral: normal size, negative: enlarged, nodule - Respiratory Respiratory: bilateral: CTA, negative: rales, rhonchi, wheezing - Cardiovascular Rhythm: regular Heart sounds: normal: S1, S2 Abnormal Heart Sounds: Absent: systolic murmur, diastolic murmur - Gastrointestinal General gastrointestinal: Present: normal bowel sounds, soft. Absent: distended, organomegaly, tenderness - Genitourinary Genitourinary Comment(s): deferred - Integumentary Integumentary: Present: normal turgor. Absent: jaundiced, rash, ulcer - Neurologic Neurologic: Present: CNII-XII intact. Absent: focal deficits - Musculoskeletal Musculoskeletal: Present: gait normal, strength equal bilaterally - Psychiatric Psychiatric: Present: A&O x's 3, appropriate affect, intact judgment & insight Results CBC & Chem 7: 05/06/21 10:00 05/06/21 10:00 Labs: Abnormal Lab Results - Last 24 Hours (Table) 05/06/21 05/06/21 Range/Units 10:00 10:00 WBC 10.7 H (3.8-10.6) k/uL RDW 16.6 H (11.5-15.5) % Neutrophils # 8.8 H (1.3-7.7) k/uL BUN 21 H (7-17) mg/dL Creatinine 1.43 H (0.52-1.04) mg/dL Glucose 155 H (74-99) mg/dL Assessment and Plan Assessment: 1. Chest pain rule out acute coronary syndrome - Continue with aspirin and metoprolol 75 mg daily; patient is currently not on any statin therapy - We will monitor EKG, 2-D echo; trend troponin; consult cardiology 2. Acute renal injury - Slow IV fluid hydration in form of normal saline at a rate of 50 mL an hour - Hold Lasix and Aldactone - Monitor strict AKBAR's, daily weights, renal function and electrolytes 3. Hyperglycemia/diabetes mellitus type 2; currently not on any oral hypoglycemic agents; monitor Accu-Cheks every before meals and at bedtime with insulin sliding scale 4. Hypertension; metoprolol 75 mg daily 5. Hypothyroidism; levothyroxin 100 mcg daily 6. Atrial fibrillation status post recent ablation; continue with home dose of amiodarone 200 mg twice a day and Epixaban 5 mg by mouth twice a day; metoprolol 75 mg daily DVT prophylaxis; SCDs/systemic anticoagulation CODE STATUS; full code
[2021-05-06] MEDS ORDERED: FUROSEMIDE 40 MG TAB PO PRN (19:37)
[2021-05-06] MEDS: AMIODARONE 200 MG TAB PO SCH (20:19)
[2021-05-06] MEDS: APIXABAN 5 MG TAB PO SCH (20:44)
[2021-05-07] MEDS: NITROGLYCERIN OINT 1 INCH/GM PACKET TOPICAL SCH ×2 (05:00→12:14)
[2021-05-07] MEDS ORDERED: LEVOTHYROXINE 100 MCG TAB PO SCH (06:30)
[2021-05-07 08:11] VITALS: RESP 17
[2021-05-07] MEDS ORDERED: METOPROLOL SUCCINATE (ER) 25 MG TAB.ER.24H PO SCH (09:00)
[2021-05-07] MEDS ORDERED: SPIRONOLACTONE 25 MG TAB PO SCH (09:00)
[2021-05-07] MEDS: APIXABAN 5 MG TAB PO SCH (09:50)
[2021-05-07] MEDS: AMIODARONE 200 MG TAB PO SCH (09:50)
[2021-05-07] MEDS: ASPIRIN 325 MG TAB PO SCH (09:51)
--- NOTE | 2021-05-07 11:37 | P.CRDCN ---
History of Present Illness Consult date: 05/07/21 Requesting physician: Ulises Hayden Reason for Consult (text): Unstable angina Chief complaint: Chest pain History of present illness: This is Rafael Parker NP dictating a consult on this patient on behalf of Dr. Galvan. The patient was interviewed and examined. HPI: Patient is a 70-year-old female who is known to the service. She reports that last night she was having chest pressure with an uncomfortable feeling in her chest. She also reports her blood pressure was elevated. She denies any dizziness or nausea at the time, but states that the pressure was constant. She had a ablation approximately 2 weeks ago for atrial fibrillation, and she was concerned there was something wrong so she presented to the hospital. ROS: [No fever, chills, or rigors] [no cough, phlegm, or expectoration] [no nausea, vomiting, or diarrhea] [no hematuria, dysuria] [no musculoskelatal complaints] [no strokes or seizures] [no skin lesions] EXAMINATION: GENERAL: Well-appearing, well-nourished and in no acute distress. NECK: Supple without JVD or thyromegaly. LUNGS: Breath sounds clear to auscultation bilaterally. Respiration equal and unlabored. No wheezes, rales or rhonchi. HEART: Regular rate and rhythm without murmurs, rubs or gallops. S1 and S2 heard. EXTREMITIES: Normal range of motion, no edema. No clubbing or cyanosis. Peripheral pulses intact and strong. REVIEW OF LABS, ECG & MEDICAL DATA: LABS: Hemoglobin 14.7, PT 11.1, INR 1.0, APTT 29.8, sodium 139, potassium 4.4, B1 21, creatinine 1.43, magnesium 2.2, troponins-0.014, 0.015, 0.019 EKG: Sinus bradycardia VITALS: Temp 98.0, pulse 47, respiratory rate 17, blood pressure 102/55, oxygen saturation 94% on room air. IMPRESSION/PLAN: 1. Atypical chest pain-patient is well-known to the service and just had an ablation for atrial fibrillation 2 weeks ago. The chest pressure and uneasy feeling is most likely due to the amiodarone. We will decrease amiodarone to 200 mg once daily. Patient's okay for discharge from our standpoint. She should follow-up in the office with us on 05/11/2021. Thank you for the consult and allowing us to participate in the care of this patient. Past Medical History Past Medical History: Atrial Fibrillation, Diabetes Mellitus, Thyroid Disorder Additional Past Medical History / Comment(s): diet controlled DM History of Any Multi-Drug Resistant Organisms: None Reported Past Surgical History: Cardiac Ablation, Tubal Ligation Additional Past Surgical History / Comment(s): lumpectomy right breast Past Anesthesia/Blood Transfusion Reactions: No Reported Reaction Past Psychological History: No Psychological Hx Reported Smoking Status: Former smoker Past Alcohol Use History: Occasional Additional Past Alcohol Use History / Comment(s): quit smoking january 2021. previously smoked over 1ppd. Past Drug Use History: None Reported - Past Family History Mother Family Medical History: COPD Father Additional Family Medical History / Comment(s): cerebral hemorrhage. Medications and Allergies Home Medications Medication Instructions Recorded Confirmed Type Apixaban [Eliquis] 5 mg PO BID #60 tab 02/13/21 05/06/21 Rx Levothyroxine Sodium [Synthroid] 100 mcg PO AC-BRKFST 04/13/21 05/06/21 History Metoprolol Succinate (ER) [Toprol 75 mg PO DAILY 04/13/21 05/06/21 History XL] Spironolactone 25 mg PO DAILY 04/13/21 05/06/21 History Amiodarone [Cordarone] 200 mg PO BID #180 tab 04/17/21 05/06/21 Rx Furosemide [Lasix] 40 mg PO DAILY PRN 05/06/21 05/06/21 History Allergies Allergy/AdvReac Type Severity Reaction Status Date / Time No Known Allergies Allergy Verified 05/06/21 10:41 Physical Exam Vitals: Vital Signs Temp Pulse Pulse Resp BP BP Pulse Ox 05/07/21 08:00 47 L 17 05/07/21 07:00 98 F 47 L 17 102/55 94 L 05/07/21 02:00 98 F 48 L 16 124/69 94 L 05/06/21 20:00 98.2 F 51 L 16 127/83 96 05/06/21 19:34 97.7 F 47 L 20 136/69 96 05/06/21 17:09 97.6 F 49 L 18 128/72 98 05/06/21 13:30 48 L 18 142/75 98 05/06/21 12:15 43 L 16 140/78 96 Intake and Output 05/06/21 05/07/21 05/07/21 22:59 06:59 14:59 Other: Voiding Method Toilet Toilet # Voids 1 3 Weight 106.594 kg Results 05/06/21 10:00 05/06/21 10:00 Cardiac Enzymes 05/06/21 05/06/21 Range/Units 13:09 16:13 Troponin I 0.015 0.019 (0.000-0.034) ng/mL Current Medications Generic Name Dose Route Start Last Admin Trade Name Freq PRN Reason Stop Dose Admin Amiodarone HCl 200 mg 05/06/21 21:00 05/07/21 09:50 Amiodarone 200 Mg Tab PO 200 mg BID DAMARIS Administration Apixaban 5 mg 05/06/21 21:00 05/07/21 09:50 Apixaban 5 Mg Tab PO 5 mg BID DAMARIS Administration Protocol Aspirin 325 mg 05/07/21 09:00 05/07/21 09:51 Aspirin 325 Mg Tab PO 325 mg DAILY DAMARIS Administration Furosemide 40 mg 05/06/21 19:37 Furosemide 40 Mg Tab PO DAILY PRN Shortness Of Breath Levothyroxine Sodium 100 mcg 05/07/21 06:30 05/07/21 05:54 Levothyroxine 100 Mcg Tab PO 100 mcg DAILY@0630 DAMARIS Administration Metoprolol Succinate 75 mg 05/07/21 09:00 05/07/21 09:44 Metoprolol Succinate (Er) 25 Mg Tab.Er.24h PO Not Given DAILY [facility] Nitroglycerin 0.4 mg 05/06/21 10:58 Nitroglycerin Sl Tabs 0.4 Mg Tab SUBLINGUAL Q5M PRN Chest Pain Nitroglycerin 1 inch 05/06/21 12:00 05/07/21 05:00 Nitroglycerin Oint 1 Inch/Gm Packet TOPICAL Not Given Q6HR [facility] Spironolactone 25 mg 05/07/21 09:00 05/07/21 09:50 Spironolactone 25 Mg Tab PO 25 mg DAILY DAMARIS Administration Intake and Output 05/06/21 05/07/21 05/07/21 22:59 06:59 14:59 Other: Voiding Method Toilet Toilet # Voids 1 3 Weight 106.594 kg 05/06/21 10:00 05/06/21 10:00
[2021-05-07 12:50] LABS: Chol/HDL Ratio 4.55; LDL Cholesterol,Calculated 84.2 mg/dL (0.0-131.0); VLDL Calculation 18.8 mg/dL (5.00-40.00)
[2021-05-07 15:05] VITALS: BP 109/55; PULSE 50; TEMP 97.8
[2021-05-08] MEDS ORDERED: AMIODARONE 200 MG TAB PO SCH (09:00)
== END 2021-05-07 15:46 | disposition home or self-care (01) ==
LOC: EC 09:10 → 6NMEDSUR 11:00
PROVIDERS: ADMIT Internal Medicine; ATTEND Internal Medicine
DX: R07.89 Other chest pain (principal); E03.9 Hypothyroidism, unspecified; E11.65 Type 2 diabetes mellitus with hyperglycemia; F17.200 Nicotine dependence, unspecified, uncomplicated; I10 Essential (primary) hypertension; I48.91 Unspecified atrial fibrillation; N17.9 Acute kidney failure, unspecified; Z79.01 Long term (current) use of anticoagulants; Z79.890 Hormone replacement therapy; Z79.899 Other long term (current) drug therapy; Z82.5 Family history of asthma and other chronic lower respiratory diseases
CPT/HCPCS: 99285; 36415; 93005; 80061; 80053; 83735; 84484; 85025; 85610; 85730; 71046; G0378 ×2

== ENCOUNTER 2021-08-29 05:37 | Day surgery (SDC) | payer MEDICARE ==
[2021-08-24 14:59] VITALS: BMI 37.5
[~2021-08-29 05:37] MED LIST changes: -HYDROmorphone 0.5 MG/0.5 ML SYRINGE IVP PRN; -MIDAZOLAM 2 MG/2 ML VIAL IV PRN; -ONDANSETRON 4 MG/2 ML VIAL IVP ONE; -SODIUM CHLORIDE 0.9% 1,000 ML IV SCH
[2021-08-29] MEDS ORDERED: SODIUM CHLORIDE 0.9% 1,000 ML IV SCH (05:54)
[2021-08-29 06:50] VITALS: TEMP 98.4
[2021-08-29 07:01] LABS: Calcium 8.9 mg/dL (8.4-10.2)
[2021-08-29 07:13] LABS: Potassium 5.1 mmol/L (3.5-5.1)
[2021-08-29] MEDS ORDERED: LIDOCAINE 1% INJ 10MG/ML (20 ML MDV) ONE (07:26)
[2021-08-29] MEDS ORDERED: PROPOFOL 10 MG/ML 20 ML VIAL IV ONE (07:26)
--- NOTE | 2021-08-29 07:58 | P.EPPROC ---
- EP Procedure Note Electrophysiology Procedure Note: Diagnosis Atrial tachycardia, sustained despite amiodarone 2-1 AV block with persistent RVR despite metoprolol succinate 75 mg daily Patient appropriately anticoagulated Status post A. fib ablation Electrical cardioversion Under conscious sedation at 200 J biphasic shock was used to convert the patient is sinus rhythm in the 50s when patient tolerated the procedure well Plan Reduce amiodarone to 100 mg by mouth daily Reassess LV function within the month if she remains in sinus rhythm If she has recurrence proceed with atrial tachycardia/possible atrial flutter ablation With mapping of the tachycardia Continue metoprolol succinate TSH is 17.9 BUN is 21 and creatinine is 1.4-90 potassium is 5.1 Increase the dose of levothyroxine to 150 mg by mouth daily Repeat TSH after 6-8 weeks
[2021-08-29 09:36] VITALS: RESP 16
[2021-08-29 09:43] VITALS: BP 122/60; PULSE 52
== END 2021-08-29 09:06 | disposition home or self-care (01) ==
LOC: CATHCVL 05:37
PROVIDERS: ATTEND Internal Medicine Clinical Cardiac Electrophysiology
DX: I47.1 Supraventricular tachycardia (principal); I48.19 Other persistent atrial fibrillation; I42.8 Other cardiomyopathies; I50.23 Acute on chronic systolic (congestive) heart failure; Z20.822 Contact with and (suspected) exposure to COVID-19; Z87.891 Personal history of nicotine dependence; E07.9 Disorder of thyroid, unspecified; Z98.51 Tubal ligation status; Z98.890 Other specified postprocedural states; Z79.01 Long term (current) use of anticoagulants; Z79.890 Hormone replacement therapy; Z79.899 Other long term (current) drug therapy
CPT/HCPCS: 92960; 80048; 84443; 87635; J2001; J2704

== ENCOUNTER → 2021-10-11 | Outpatient (CLI) | payer MEDICARE ==
[2021-10-11 14:39] LABS: T4, Free (Free Thyroxine) 1.68 ng/dL (0.800-1.800)
== END | disposition home or self-care (01) ==
LOC: LABWHC1 09:04
PROVIDERS: ATTEND Internal Medicine Clinical Cardiac Electrophysiology
DX: I42.8 Other cardiomyopathies (principal); I48.19 Other persistent atrial fibrillation; I50.23 Acute on chronic systolic (congestive) heart failure
CPT/HCPCS: 36415; 84439; 84443; 84481

== ENCOUNTER → 2022-01-29 | Outpatient (CLI) | payer MEDICARE ==
[2022-01-29 14:47] LABS: T4, Free (Free Thyroxine) 1.51 ng/dL (0.800-1.800)
== END | disposition home or self-care (01) ==
LOC: LABWHC1 10:24
PROVIDERS: ATTEND Internal Medicine Clinical Cardiac Electrophysiology
DX: I42.8 Other cardiomyopathies (principal); I48.19 Other persistent atrial fibrillation; I50.23 Acute on chronic systolic (congestive) heart failure
CPT/HCPCS: 36415; 84439; 84443; 84481

== ENCOUNTER 2022-03-15 12:09 | Observation (INO) | payer MEDICARE ==
[2022-03-15 12:45] LABS: Anisocytosis Slight; Basophils # (A) 0.1 k/uL (0-0.2); Basophils % (A) 1 %; Eosinophils # (A) 0.2 k/uL (0-0.7); Eosinophils % (A) 3 %; HCT 48.1 % (34.0-46.0); HGB 16.3 gm/dL (11.4-16.0); Lymphocytes # (A) 2.2 k/uL (1.0-4.8); Lymphocytes % (A) 23 %; MCH 32.4 pg (25.0-35.0); MCHC 33.9 g/dL (31.0-37.0); MCV 95.6 fL (80.0-100.0); Mean Platelet Volume 7.6; Monocytes # (A) 0.4 k/uL (0-1.0); Monocytes % (A) 5 %; Neutrophils # (A) 6.4 k/uL (1.3-7.7); Neutrophils % (A) 68 %; Platelet Count 230 k/uL (150-450); Poikilocytosis Slight; RBC 5.03 m/uL (3.80-5.40); RDW 16.6 % (11.5-15.5); WBC 9.5 k/uL (3.8-10.6)
[2022-03-15 12:54] LABS: Albumin 4.8 g/dL (3.5-5.0); Calcium 9.3 mg/dL (8.4-10.2); Magnesium 1.9 mg/dL (1.6-2.3); Potassium 4.6 mmol/L (3.5-5.1); Total Bilirubin 0.9 mg/dL (0.2-1.3); Total Protein 7.6 g/dL (6.3-8.2)
[2022-03-15 13:03] LABS: Partial Thromboplastin Time 27.3 sec (22.0-30.0); Prothrombin Time 10.6 sec (9.0-12.0)
[2022-03-15] MEDS ORDERED: METOPROLOL TARTRATE 5 MG/5 ML VIAL IVP STA ×2 (13:07→14:04)
[2022-03-15] MEDS ORDERED: SODIUM CHLORIDE 0.9% 500 ML 500 ML IV STA ×2 (13:09→14:07)
--- NOTE | 2022-03-15 13:17 | ED ---
General Adult HPI - General Chief complaint: Arrhythmia/Palpitations Stated complaint: High HR/tightness Time Seen by Provider: 03/15/22 12:56 Source: patient, family Mode of arrival: wheelchair Limitations: no limitations - History of Present Illness Initial comments: Dictation was produced using eMagin dictation software. please excuse any gramma tical, word or spelling errors. Chief Complaint: 71-year-old female presents to the emergency department for tachycardia History of Present Illness: Eleno is a 71-year-old female presents to the emergency department for her high heart rate. Patient has chronic history of atrial fibrillation. Patient does take anticoagulation medications. Patient states that she's been feeling a little short of breath since the last couple days. She decided to check her heart rate and oxygen level with a pulse oximeter. Pulse oximeter read that her heart rate was fast in the 140s. Patient presents to the emergency room with her ex daughter in law who is a nurse. Patient states she had some tightness in her chest earlier today. Patient did have a lot of those changes to her medications over the last couple weeks including changing her metoprolol to Coreg and being initiated on Jardian ce. Patient denies any chest symptoms at the bedside. Denies any dizziness. No nausea. The ROS documented in this emergency department record has been reviewed and confirmed by me. Those systems with pertinent positive or negative responses have been documented in the HPI. All other systems are other negative and/or noncontributory. PHYSICAL EXAM: General Impression: Alert and oriented x3, not in acute distress HEENT: Normocephalic atraumatic, extra-ocular movements intact, pupils equal and reactive to light bilaterally, mucous membranes moist. Cardiovascular: Irregularly irregular Chest: Able to complete full sentences, no retractions, no tachypnea Abdomen: abdomen soft, non-tender, non-distended, no organomegaly Musculoskeletal: Pulses present and equal in all extremities, no peripheral edema Motor: no focal deficits noted Neurological: CN II-XII grossly intact, no focal motor or sensory deficits noted Skin: Intact with no visualized rashes Psych: Normal affect and mood ED course: 71 y Old female presents to the emergency department for tachycardia. Patient has history of atrial fibrillation. She has had medication adjustments over the last 2 weeks. Vital signs upon arrival shows heart rate of 140s, rest of vital signs within acceptable limits. EKG shows atrial fibrillation with rapid ventricular rate. Patient's well. The bedside. She is in no acute distress. Blood pressure is 140/78. Patient given IV metoprolol. The patient upon initial interview is requesting to be discharged at some point due to family flying in from out of state that should be arriving in town today. Patient's vital signs improved after metoprolol IV push. She has however feel little lightheaded blood pressure decreased. CBC unremarkable. Coag panel is negative. Metabolic panel is within acceptable limits. Cardiac enzymes negative. Chest x-ray shows no acute processes. Patient be admitted with consultation to cardiology for atrial fibrillation with rapid ventricular rate. Patient is agreeable plan. Cardiology consulted. [facility] interpretation: Ventricular rate 142, atrial flutter, QRS 82, QTc 224. no QTC prolongation, no ST or T-wave changes noted. EKG compared to 08/29/2021 showing no changes. Overall, this EKG is unremarkable - Related Data Home Medications Medication Instructions Recorded Confirmed Spironolactone 50 mg PO DAILY 04/13/21 08/29/21 Levothyroxine Sodium 150 mcg PO AC-BRKFST 07/04/21 08/29/21 Empagliflozin [Jardiance] 10 mg PO 03/15/22 Mirabegron [Myrbetriq] 25 mg PO DAILY 03/15/22 carvediloL [Coreg] 3.125 mg PO BID 03/15/22 Previous Rx's Medication Instructions Recorded Apixaban [Eliquis] 5 mg PO BID #60 tab 02/13/21 Allergies Allergy/AdvReac Type Severity Reaction Status Date / Time No Known Allergies Allergy Verified 03/15/22 12:16 Review of Systems ROS Statement: Those systems with pertinent positive or pertinent negative responses have been documented in the HPI. ROS Other: All systems not noted in ROS Statement are negative. Past Medical History Past Medical History: Atrial Fibrillation, Diabetes Mellitus Additional Past Medical History / Comment(s): diet controlled DM History of Any Multi-Drug Resistant Organisms: None Reported Past Surgical History: Cardiac Ablation, Tubal Ligation Additional Past Surgical History / Comment(s): lumpectomy right breast, ablation Past Anesthesia/Blood Transfusion Reactions: No Reported Reaction Past Psychological History: No Psychological Hx Reported Smoking Status: Never smoker Past Alcohol Use History: Occasional - Past Family History Mother Family Medical History: COPD Father Additional Family Medical History / Comment(s): cerebral hemorrhage. General Exam Limitations: no limitations Course Vital Signs 03/15/22 03/15/22 03/15/22 12:11 13:02 13:28 Temperature 97.0 F L Pulse Rate 141 H 135 H Pulse Rate [ 140 H [employer] ] Respiratory 18 16 Rate Blood Pressure 140/78 O2 Sat by Pulse 96 99 Oximetry 03/15/22 14:09 Temperature Pulse Rate 108 H Pulse Rate [ [employer] ] Respiratory 16 Rate Blood Pressure 102/89 O2 Sat by Pulse 99 Oximetry Medical Decision Making - Lab Data Result diagrams: 03/15/22 12:27 03/15/22 12:27 Lab Results 03/15/22 03/15/22 03/15/22 Range/Units 12:27 12:27 12:27 WBC 9.5 (3.8-10.6) k/uL RBC 5.03 (3.80-5.40) m/uL Hgb 16.3 H (11.4-16.0) gm/dL Hct 48.1 H (34.0-46.0) % MCV 95.6 (80.0-100.0) fL MCH 32.4 (25.0-35.0) pg MCHC 33.9 (31.0-37.0) g/dL RDW 16.6 H (11.5-15.5) % Plt Count 230 (150-450) k/uL MPV 7.6 Neutrophils % 68 % Lymphocytes % 23 % Monocytes % 5 % Eosinophils % 3 % Basophils % 1 % Neutrophils # 6.4 (1.3-7.7) k/uL Lymphocytes # 2.2 (1.0-4.8) k/uL Monocytes # 0.4 (0-1.0) k/uL Eosinophils # 0.2 (0-0.7) k/uL Basophils # 0.1 (0-0.2) k/uL Poikilocytosis Slight Anisocytosis Slight PT 10.6 (9.0-12.0) sec INR 1.0 (<1.2) APTT 27.3 (22.0-30.0) sec Sodium 137 (137-145) mmol/L Potassium 4.6 (3.5-5.1) mmol/L Chloride 100 (98-107) mmol/L Carbon Dioxide 22 (22-30) mmol/L Anion Gap 15 mmol/L BUN 18 H (7-17) mg/dL Creatinine 1.32 H (0.52-1.04) mg/dL Est GFR (CKD-EPI)AfAm 47 (>60 ml/min/1.73 sqM) Est GFR (CKD-EPI)NonAf 41 (>60 ml/min/1.73 sqM) Glucose 268 H (74-99) mg/dL Calcium 9.3 (8.4-10.2) mg/dL Magnesium 1.9 (1.6-2.3) mg/dL Total Bilirubin 0.9 (0.2-1.3) mg/dL AST 26 (14-36) U/L ALT 23 (4-34) U/L Alkaline Phosphatase 85 (38-126) U/L Troponin I (0.000-0.034) ng/mL NT-Pro-B Natriuret Pep pg/mL Total Protein 7.6 (6.3-8.2) g/dL Albumin 4.8 (3.5-5.0) g/dL 03/15/22 03/15/22 Range/Units 12:27 12:27 WBC (3.8-10.6) k/uL RBC (3.80-5.40) m/uL Hgb (11.4-16.0) gm/dL Hct (34.0-46.0) % MCV (80.0-100.0) fL MCH (25.0-35.0) pg MCHC (31.0-37.0) g/dL RDW (11.5-15.5) % Plt Count (150-450) k/uL MPV Neutrophils % % Lymphocytes % % Monocytes % % Eosinophils % % Basophils % % Neutrophils # (1.3-7.7) k/uL Lymphocytes # (1.0-4.8) k/uL Monocytes # (0-1.0) k/uL Eosinophils # (0-0.7) k/uL Basophils # (0-0.2) k/uL Poikilocytosis Anisocytosis PT (9.0-12.0) sec INR (<1.2) APTT (22.0-30.0) sec Sodium (137-145) mmol/L Potassium (3.5-5.1) mmol/L Chloride (98-107) mmol/L Carbon Dioxide (22-30) mmol/L Anion Gap mmol/L BUN (7-17) mg/dL Creatinine (0.52-1.04) mg/dL Est GFR (CKD-EPI)AfAm (>60 ml/min/1.73 sqM) Est GFR (CKD-EPI)NonAf (>60 ml/min/1.73 sqM) Glucose (74-99) mg/dL Calcium (8.4-10.2) mg/dL Magnesium (1.6-2.3) mg/dL Total Bilirubin (0.2-1.3) mg/dL AST (14-36) U/L ALT (4-34) U/L Alkaline Phosphatase (38-126) U/L Troponin I <0.012 (0.000-0.034) ng/mL NT-Pro-B Natriuret Pep 2100 pg/mL Total Protein (6.3-8.2) g/dL Albumin (3.5-5.0) g/dL Critical Care Time Critical Care Time: Yes Total Critical Care Time: 33 Disposition Clinical Impression: Atrial fibrillation Disposition: ADMITTED IP TO THIS [facility] Condition: Serious Referrals: Josselin Guerrero MD [Primary Care Provider] - 1-2 days Decision Time: 14:51
--- NOTE | 2022-03-15 14:06 | XR ---
EXAMINATION TYPE: XR chest 2V DATE OF EXAM: 03/15/2022 COMPARISON: 05/06/2021 TECHNIQUE: PA and lateral views submitted. HISTORY: Dysrhythmia FINDINGS: The lungs are clear and there is no pneumothorax, pleural effusion, or focal pneumonia. Heart size normal. Atherosclerotic change aorta. Arthropathy of the shoulders. No overt failure. Biapical pleura l thickening stable. IMPRESSION: 1. No acute process.
[2022-03-15] MEDS ORDERED: NALOXONE 0.4 MG/ML 1 ML VIAL IV PRN (14:21)
[2022-03-15] MEDS ORDERED: METOPROLOL TARTRATE 25 MG TAB PO STA (15:27)
--- NOTE | 2022-03-15 16:04 | P.CRDCN ---
History of Present Illness Consult date: 03/15/22 History of present illness: History of Present Illness: The patient is a 8-year-old female with a known history of atrial fibrillation status post ablation last year, history of hypertension, diabetes and a prior history of smoking one pack a day, she stopped about a year ago who presents with symptoms of progressive dyspnea as well as rapid heartbeat. About a month ago her metoprolol was changed to carvedilol. Last year she had severe cardiomyopathy but according to her her recent echocardiogram showed improvement, she has been followed by Dr. Galvan. She has no documented history of CAD, had an MPI in the past that was unremarkable according to her. She underwent ablation last year for her arrhythmia. She is not active physically. She has occasional peripheral edema and uses furosemide on a when necessary basis. She denies any PND, orthopnea or recent dizziness or palpitations. She is not aware of the atrial fibrillation but when she checked her pulse she was tachycardic. She always has some dyspnea on exertion but worse over the last few weeks. Medications: Furosemide on a when necessary basis, carvedilol 3.125 mg twice a day, spironolactone 25 mg daily, Shahnaz stent milligrams daily, levothyroxine 150 g daily, Eliquis 5 mg twice a day Review of Systems: Respiratory: She has chronic dyspnea on exertion but no recent wheezing, cough GI: No nausea or vomiting . No history of peptic ulcer disease. No recent GI bleed. : No hematuria or dysuria. Nervous System: No stroke or seizure. Physical Examination: 71-year-old female, alert oriented no apparent distress,Blood pressure 113/80, Heart rate in the 110s Head: Normocephalic. Eyes: Sclerae nonicteric. Neck: Good carotid upstroke, no bruit, no jugular venous distention. Lungs: Clear to auscultation. Heart: Irregular rate and rhythm, S1-S2, no S3, no rub. No murmur. Abdomen: Soft nontender, positive bowel sounds no organomegaly. Extremities: No edema, intact distal pulses. Labs: Hemoglobin 16.3, BUN 18, creatinine 1.32. Troponin less than 0.012, NT proBNP 2100 EKG: Probable atrial tach versus atrial flutter with 2-1 conduction and a rate of 142 Impression: 1. Atrial tachycardia versus atrial flutter with rapid ventricular response 2. Progressive dyspnea, probable secondary to the tachycardia 3. Prior history of cardiomyopathy, improved according to the patient 4. History of diabetes 5. Prior history of smoking, stopped less than a year ago 6. Mildly elevated NT proBNP with no congestion on physical examination, probably secondary to the tachycardia Plan: 1. Continue anticoagulation 2. IV diuretics for 24 hours 3. Increase beta paz 4. Obtain an echocardiogram with Doppler 5. Follow renal functions 6. Review office records for most recent echo report 7. Depending on her response further recommendations will be made. The patient may require cardioversion or repeat ablation. Past Medical History Past Medical History: Atrial Fibrillation, Diabetes Mellitus Additional Past Medical History / Comment(s): diet controlled DM History of Any Multi-Drug Resistant Organisms: None Reported Past Surgical History: Cardiac Ablation, Tubal Ligation Additional Past Surgical History / Comment(s): lumpectomy right breast, ablation Past Anesthesia/Blood Transfusion Reactions: No Reported Reaction Past Psychological History: No Psychological Hx Reported Smoking Status: Never smoker Past Alcohol Use History: Occasional - Past Family History Mother Family Medical History: COPD Father Additional Family Medical History / Comment(s): cerebral hemorrhage. Medications and Allergies Home Medications Medication Instructions Recorded Confirmed Type Apixaban [Eliquis] 5 mg PO BID #60 tab 02/13/21 03/15/22 Rx Levothyroxine Sodium 150 mcg PO DAILY 07/04/21 03/15/22 History Empagliflozin [Jardiance] 10 mg PO DAILY 03/15/22 03/15/22 History Furosemide [Lasix] 40 mg PO DAILY PRN 03/15/22 03/15/22 History Mirabegron [Myrbetriq] 25 mg PO DAILY 03/15/22 03/15/22 History Spironolactone [Aldactone] 25 mg PO DAILY 03/15/22 03/15/22 History carvediloL [Coreg] 3.125 mg PO BID 03/15/22 03/15/22 History Allergies Allergy/AdvReac Type Severity Reaction Status Date / Time No Known Allergies Allergy Verified 03/15/22 15:07 Physical Exam Vitals: Vital Signs Temp Pulse Pulse Resp BP Pulse Ox 03/15/22 15:32 118 H 16 113/84 97 03/15/22 14:09 108 H 16 102/89 99 03/15/22 13:28 135 H 16 99 03/15/22 13:02 140 H 03/15/22 12:11 97.0 F L 141 H 18 140/78 96 Intake and Output 03/15/22 03/15/22 03/15/22 06:59 14:59 22:59 Other: Weight 113.398 kg Results 03/15/22 12:27 03/15/22 12:27 Cardiac Enzymes 03/15/22 03/15/22 Range/Units 12:27 12:27 AST 26 (14-36) U/L Troponin I <0.012 (0.000-0.034) ng/mL Coagulation 03/15/22 Range/Units 12:27 PT 10.6 (9.0-12.0) sec APTT 27.3 (22.0-30.0) sec CBC 03/15/22 Range/Units 12:27 WBC 9.5 (3.8-10.6) k/uL RBC 5.03 (3.80-5.40) m/uL Hgb 16.3 H (11.4-16.0) gm/dL Hct 48.1 H (34.0-46.0) % Plt Count 230 (150-450) k/uL Comprehensive Metabolic Panel 03/15/22 Range/Units 12:27 Sodium 137 (137-145) mmol/L Potassium 4.6 (3.5-5.1) mmol/L Chloride 100 (98-107) mmol/L Carbon Dioxide 22 (22-30) mmol/L BUN 18 H (7-17) mg/dL Creatinine 1.32 H (0.52-1.04) mg/dL Glucose 268 H (74-99) mg/dL Calcium 9.3 (8.4-10.2) mg/dL AST 26 (14-36) U/L ALT 23 (4-34) U/L Alkaline Phosphatase 85 (38-126) U/L Total Protein 7.6 (6.3-8.2) g/dL Albumin 4.8 (3.5-5.0) g/dL Current Medications Generic Name Dose Route Start Last Admin Trade Name Freq PRN Reason Stop Dose Admin Apixaban 5 mg 03/15/22 21:00 Apixaban 5 Mg Tab PO BID DAMARIS Protocol Carvedilol 6.25 mg 03/15/22 17:30 Carvedilol 6.25 Mg Tab PO BID-W/MEALS DAMARIS Sodium Chloride 1,000 mls @ 20 mls/hr 03/15/22 14:30 Saline 0.9% IV .Q24H DAMARIS Levothyroxine Sodium 150 mcg 03/16/22 06:30 Levothyroxine 75 Mcg [place] PO 0630 DAMARIS Naloxone HCl 0.2 mg 03/15/22 14:21 Naloxone 0.4 Mg/Ml 1 Ml Vial IV Q2M PRN Opioid Reversal Patient's Own ( 10 mg 03/16/22 09:00 Empagliflozin [ PO Jardiance] 10 Mg DAILY DAMARIS Tablet) Spironolactone 25 mg 03/16/22 09:00 Spironolactone 25 Mg Tab PO DAILY DAMARIS Intake and Output 03/15/22 03/15/22 03/15/22 06:59 14:59 22:59 Other: Weight 113.398 kg Patient Weight 03/16/22 06:59 Weight 113.398 kg 03/15/22 12:27 03/15/22 12:27
[2022-03-15 17:03] LABS: T4, Free (Free Thyroxine) 1.76 ng/dL (0.78-2.19)
[2022-03-15] MEDS ORDERED: DILTIAZEM DRIP BOLUS FROM BAG 1 MG SOLN IV ONE (17:06)
[2022-03-15] MEDS ORDERED: DILTIAZEM 125 MG in SODIUM CHLORIDE 0.9% 100 ML IV SCH (17:15)
[2022-03-15] MEDS: ATORVASTATIN 40 MG TAB PO SCH (17:18)
[2022-03-15] MEDS: carvediloL 6.25 MG TAB PO SCH (17:34)
[2022-03-15] MEDS: SODIUM CHLORIDE 0.9% 1,000 ML IV SCH (17:34)
--- NOTE | 2022-03-15 19:52 | HP ---
HISTORY AND PHYSICAL DATE OF SERVICE: 03/15/2022 CHIEF COMPLAINT: Palpitations. HISTORY OF PRESENT ILLNESS: This 71-year-old woman with a past medical history of multiple medical problems, including diabetes mellitus and atrial ablation, had a previous ablation. Patient is followed by Vaishnavi James in the outpatient setting. Patient had significant palpitations and was found to be in atrial ablation. Patient was given beta blockers, but the heart rate is still hovering around 140. There is no history of any fever, rigor or chills at this time. PAST MEDICAL HISTORY: Atrial fibrillation, diabetes mellitus. HOME MEDICATIONS: Reviewed. They include Lasix, Coreg. Doses are reviewed. ALLERGIES: NONE. FAMILY HISTORY: History of COPD, cerebellar hemorrhage. SOCIAL HISTORY: No history of smoking. Occasional alcohol intake. REVIEW OF SYSTEMS: Fourteen-point review of systems negative except as mentioned earlier. PHYSICAL EXAMINATION: Pulse is 140, regular, respiration 16, temperature normal, pulse ox 97% on room air. Blood pressure 113/84. HEENT: Conjunctivae normal. NECK: No jugular venous distention. CARDIOVASCULAR: S1, S2 irregular, tachycardic. RESPIRATION: Breath sounds diminished at the bases. No rhonchi. No crackles. ABDOMEN: Soft, obese. LEGS: No edema. No swelling. NERVOUS SYSTEM: No focal deficit. SKIN: No ulcer, rash, bleeding. JOINTS: No active deforming arthropathy. LABS: CBC within normal limits. Creatinine is 1.32. TSH is 8.35, but free T4 is normal. ASSESSMENT: 1. Atrial ablation with fast ventricular rate. 2. History of atrial fibrillation, ablation. 3. Diabetes mellitus, type 2. RECOMMENDATIONS AND DISCUSSION: In this 71-year-old woman who presented with multiple complex medical issues, we will monitor the patient closely. I would recommend cautious Cardizem drip and follow closely with Cardiology. Full cardiac workup. Guarded prognosis because of multiple complex medical issues. Further recommendations to follow. The patient is already on Eliquis. See orders for further details. MMODL / IJN: [id number] /
[2022-03-15 20:25] LABS: Glucose,Whole Blood 230 mg/dL (70-110)
[2022-03-15] MEDS: APIXABAN 5 MG TAB PO SCH (20:51)
[2022-03-15] MEDS: FUROSEMIDE 10 MG/ML 2 ML VIAL IV SCH (20:51)
[2022-03-15] MEDS: INSULIN ASPART (NovoLOG) 100 UNIT/ML VIAL SQ SCH (21:57)
[2022-03-15 22:18] LABS: Appearance,Urine Cloudy (Clear); Bacteria,Urine Few /hpf; Bilirubin,Urine Negative (Negative); Blood,Urine Negative (Negative); Color,Urine Light Yellow; Glucose,Urine (UA) 4+ (Negative); Ketones,Urine Negative (Negative); Leukocyte Esterase,Urine Large (Negative); Mucus,Urine Rare /hpf; Nitrite,Urine Negative (Negative); PH, Urine 5.5 (5.0-8.0); Protein,Urine Negative (Negative); RBC,Urine 4 /hpf (0-5); Specific Gravity,Urine 1.023 (1.001-1.035); Squamous Epithelial Cell,Urine 22 /hpf (0-4); Urobilinogen,Urine <2.0 mg/dL (<2.0); WBC,Urine 88 /hpf (0-5)
[2022-03-15 22:58] LABS: Chol/HDL Ratio 5.93 Ratio; LDL Cholesterol,Calculated 131.4 mg/dL (0.0-131.0)
[2022-03-16 06:21] LABS: Glucose,Whole Blood 180 mg/dL (70-110)
[2022-03-16] MEDS ORDERED: LEVOTHYROXINE 75 MCG TAB PO SCH (06:30)
[2022-03-16] MEDS: carvediloL 6.25 MG TAB PO SCH ×2 (06:38→13:55)
[2022-03-16] MEDS: INSULIN ASPART (NovoLOG) 100 UNIT/ML VIAL SQ SCH ×3 (06:41→13:55)
[2022-03-16 07:30] VITALS: RESP 18
[2022-03-16] MEDS ORDERED: INSULIN ASPART (NovoLOG) 100 UNIT/ML VIAL SQ SCH (07:30)
[2022-03-16] MEDS: FUROSEMIDE 10 MG/ML 2 ML VIAL IV SCH (07:36)
[2022-03-16] MEDS: ATORVASTATIN 40 MG TAB PO SCH (07:36)
[2022-03-16] MEDS: APIXABAN 5 MG TAB PO SCH (07:36)
[2022-03-16 08:38] LABS: Anisocytosis Slight; Basophils # (A) 0.1 k/uL (0-0.2); Basophils % (A) 1 %; Eosinophils # (A) 0.3 k/uL (0-0.7); Eosinophils % (A) 4 %; HCT 44.6 % (34.0-46.0); HGB 14.9 gm/dL (11.4-16.0); Lymphocytes % (A) 21 %; MCHC 33.4 g/dL (31.0-37.0); MCV 95.7 fL (80.0-100.0); Mean Platelet Volume 8.1; Monocytes # (A) 0.6 k/uL (0-1.0); Monocytes % (A) 6 %; Neutrophils # (A) 6.3 k/uL (1.3-7.7); Neutrophils % (A) 66 %; Platelet Count 181 k/uL (150-450); Poikilocytosis Slight; RBC 4.66 m/uL (3.80-5.40); RDW 16.2 % (11.5-15.5); WBC 9.4 k/uL (3.8-10.6)
[2022-03-16 08:59] LABS: Calcium 8.6 mg/dL (8.4-10.2)
[2022-03-16] MEDS ORDERED: PATIENT'S OWN (Empagliflozin [Jardiance] 10 MG Tablet) PO SCH (09:00)
[2022-03-16] MEDS ORDERED: SPIRONOLACTONE 25 MG TAB PO SCH (09:00)
[2022-03-16 09:05] LABS: Potassium 4.2 mmol/L (3.5-5.1)
--- NOTE | 2022-03-16 09:51 | CA ---
Transthoracic Echo Report Name: Zakiya Ruano Age: 71 Gender: F : 1950 Exam Date: 03/16/2022 08:08 Exam Location: [facility] Ht (in): 67 Wt (lb): 253 Ordering Physician: Thomas Silver MD ([id number]) Attending/Referring Phys: Survey Research Associate Vaishnavi Miranda RDCS Procedure CPT: Indications: aflutter Cardiac Hx: Hx of ablasion for afib Technical Quality: Fair Contrast 1: Total Dose (mL): Contrast 2: Total Dose (mL): MEASUREMENTS (Male / Female) Normal Values 2D ECHO LV Diastolic Diameter PLAX 3.5 cm 4.2 - 5.9 / 3.9 - 5.3 cm LV Systolic Diameter PLAX 2.6 cm IVS Diastolic Thickness 1.4 cm 0.6 - 1.0 / 0.6 - 0.9 cm LVPW Diastolic Thickness 1.4 cm 0.6 - 1.0 / 0.6 - 0.9 cm LV Relative Wall Thickness 0.8 M-MODE Aortic Root Diameter MM 3.5 cm LA Systolic Diameter MM 3.7 cm LA Ao Ratio MM 1.0 AV Cusp Separation MM 2.1 cm DOPPLER AV Peak Velocity 106.0 cm/s AV Peak Gradient 4.5 mmHg MV Area PHT 4.4 cm??? MR Peak Velocity 199.5 cm/s MR Peak Gradient 15.9 mmHg Mitral E Point Velocity 82.7 cm/s Mitral A Point Velocity 31.5 cm/s Mitral E to A Ratio 2.6 MV Deceleration Time 173.5 ms TR Peak Velocity 99.9 cm/s TR Peak Gradient 4.0 mmHg Right Ventricular Systolic Press 9.0 mmHg FINDINGS Left Ventricle Moderately increased septal wall thickness. Moderately increased posterior wall thickness. Left ventricular ejection fraction is estimated at 50 %. Left ventricular cavity size normal. Right Ventricle The right ventricle is normal in size and function. Right Atrium The right atrium is normal in size. Left Atrium The left atrium is normal in size. Mitral Valve Structurally normal mitral valve without significant stenosis or prolapse. There is trace mitral regurgitation. Aortic Valve Structurally normal aortic valve without significant sclerosis or stenosis. There is no aortic regurgitation. Tricuspid Valve Structurally normal tricuspid valve without significant stenosis. Pulmonary artery systolic pressure is normal. Trace tricuspid regurgitation. Pulmonic Valve Structurally normal pulmonic valve without significant stenosis. There is no pulmonic regurgitation. Pericardium Normal pericardium without effusion. Aorta Normal aortic root dimension. CONCLUSIONS LVH with left radical ejection fraction a low-normal, 50% Previewed by: Dr. Mane Galvan MD (Electronically Signed) Final Date: 16 March 2022 09:50
[2022-03-16] MEDS: SODIUM CHLORIDE 0.9% 1,000 ML IV SCH (11:25)
[2022-03-16 11:30] VITALS: BP 94/68; PULSE 73; TEMP 98.1
[2022-03-16 12:13] LABS: Glucose,Whole Blood 182 mg/dL (70-110)
[2022-03-16] MEDS ORDERED: FLUCONAZOLE 100 MG TAB PO SCH (12:15)
--- NOTE | 2022-03-16 13:15 | P.PN ---
Subjective The patient is a 71-year-old female with a known history of atrial fibrillation status post ablation 08/2021, history of hypertension, diabetes and a prior history of smoking one pack a day, she stopped about a year ago. She follows with Dr. Galvan. She presents with symptoms of progressive dyspnea as well as rapid heartbeat. About a month ago her metoprolol was changed to carvedilol. Last year she had severe cardiomyopathy but repeat echoardiogram in the office revealed EF 50-55% in Oct 2021. The emergency department she was found to be in atrial flutter with rapid ventricular response, she was given IV Lopressor total of 10 mg, also given metoprolol tartrate 25 mg. She was then started on IV Cardizem briefly. Her coreg was increased. Cardizem stopped. Patient seen and examined at bedside, no acute distress. Her symptoms have res olved. She does not have any shortness of breath, palpitations, chest pain, lightheadedness or dizziness. She continues to be in atrial tachycardia with HR 70s. She is feeling well, no complaints. Echocardiogram revealed EF 50%. Sodium 136, potassium 4.2, BUN 24, serum creatinine 1.3 PHYSICAL EXAMINATION GENERAL: Well-appearing, well-nourished and in no acute distress. NECK: Supple without JVD or thyromegaly. LUNGS: Breath sounds clear to auscultation bilaterally. Respiration equal and unlabored. No wheezes, rales or rhonchi. HEART: Irregular rate and rhythm without murmurs, rubs or gallops. S1 and S2 heard. EXTREMITIES: Normal range of motion, no edema. No clubbing or cyanosis. Perip heral pulses intact. ASSESSMENT Atrial tachycardia versus atrial flutter with rapid ventricular response, on anticoagulation with Eliquis Progressive dyspnea, probable secondary to the tachycardia Prior history of cardiomyopathy, with improved EF History of diabetes Prior history of smoking, stopped less than a year ago Mildly elevated NT proBNP with no congestion on physical examination, probably secondary to the tachycardia PLAN Continue anticoagulation Transition to PO Lasix Continue Coreg at 6.25mg BID The patient likely will require a ablation as an outpatient. From a cardiology perspective, patient can be discharged home today and follow- up closely with Dr. Galvan. Nurse practitioner note has been reviewed by physician. Signing provider agrees with the documented findings, assessment, and plan of care. Objective - Vital Signs Vital signs: Vital Signs Temp 98.1 F 03/16/22 11:29 Pulse 73 03/16/22 11:29 Resp 18 03/16/22 11:29 BP 94/68 03/16/22 11:29 Pulse Ox 96 03/16/22 11:29 FiO2 Intake & Output 03/15/22 03/16/22 03/16/22 18:59 06:59 18:59 Intake Total 441.167 Output Total 200 Balance -200 441.167 Weight 113.398 kg 115.2 kg Intake: Intake, IV Titration 323.167 Amount Diltiazem 125 mg In 83.167 Sodium Chloride 0.9% 100 ml @ 5 MG/HR 5 mls/hr IV .Q24H DAMARIS Rx#:[id number] Sodium Chloride 0.9% 1, 240 000 ml @ 20 mls/hr IV . Q24H DAMARIS Rx#:[id number] Oral 118 Output: Urine 200 Other: Voiding Method Toilet Toilet # Voids 4 - Labs CBC & Chem 7: 03/16/22 08:15 03/16/22 08:15 Labs: Abnormal Lab Results - Last 24 Hours (Table) 03/15/22 03/15/22 03/15/22 Range/Units 12:27 12:27 12:27 Hgb 16.3 H (11.4-16.0) gm/dL Hct 48.1 H (34.0-46.0) % RDW 16.6 H (11.5-15.5) % Sodium (137-145) mmol/L Carbon Dioxide (22-30) mmol/L BUN 18 H (7-17) mg/dL Creatinine 1.32 H (0.52-1.04) mg/dL Glucose 268 H (74-99) mg/dL POC Glucose (mg/dL) (70-110) mg/dL Triglycerides (0.00-149.00) mg/dL LDL Cholesterol, Calc (0.0-131.0) mg/dL HDL Cholesterol (40.00-60.00) mg/dL TSH 8.350 H (0.465-4.680) mIU/L Urine Appearance (Clear) Urine Glucose (UA) (Negative) Ur Leukocyte Esterase (Negative) Urine WBC (0-5) /hpf Ur Squamous Epith Cells (0-4) /hpf Urine Bacteria (None) /hpf Urine Mucus (None) /hpf 03/15/22 03/15/22 03/15/22 Range/Units 12:27 20:24 21:25 Hgb (11.4-16.0) gm/dL Hct (34.0-46.0) % RDW (11.5-15.5) % Sodium (137-145) mmol/L Carbon Dioxide (22-30) mmol/L BUN (7-17) mg/dL Creatinine (0.52-1.04) mg/dL Glucose (74-99) mg/dL POC Glucose (mg/dL) 230 H (70-110) mg/dL Triglycerides 162.00 H (0.00-149.00) mg/dL LDL Cholesterol, Calc 131.4 H (0.0-131.0) mg/dL HDL Cholesterol 33.20 L (40.00-60.00) mg/dL TSH (0.465-4.680) mIU/L Urine Appearance Cloudy H (Clear) Urine Glucose (UA) 4+ H (Negative) Ur Leukocyte Esterase Large H (Negative) Urine WBC 88 H (0-5) /hpf Ur Squamous Epith Cells 22 H (0-4) /hpf Urine Bacteria Few H (None) /hpf Urine Mucus Rare H (None) /hpf 03/16/22 03/16/22 03/16/22 Range/Units 06:03 08:15 08:15 Hgb (11.4-16.0) gm/dL Hct (34.0-46.0) % RDW 16.2 H (11.5-15.5) % Sodium 136 L (137-145) mmol/L Carbon Dioxide 21 L (22-30) mmol/L BUN 24 H (7-17) mg/dL Creatinine 1.34 H (0.52-1.04) mg/dL Glucose 298 H (74-99) mg/dL POC Glucose (mg/dL) 180 H (70-110) mg/dL Triglycerides (0.00-149.00) mg/dL LDL Cholesterol, Calc (0.0-131.0) mg/dL HDL Cholesterol (40.00-60.00) mg/dL TSH (0.465-4.680) mIU/L Urine Appearance (Clear) Urine Glucose (UA) (Negative) Ur Leukocyte Esterase (Negative) Urine WBC (0-5) /hpf Ur Squamous Epith Cells (0-4) /hpf Urine Bacteria (None) /hpf Urine Mucus (None) /hpf
[2022-03-17] MEDS ORDERED: FUROSEMIDE 20 MG TAB PO SCH (09:00)
--- NOTE | 2022-03-21 00:09 | P.DS ---
Providers Date of admission: 03/15/22 14:52 Expected date of discharge: 03/16/22 Attending physician: Kayley Andrade Consults: 03/15/22 14:21 Consult Physician Routine Consulting Provider: Thomas Silver Consult Reason/Comments: afib rvr Do you want consulting provider notified?: Yes Primary care physician: Josselin Guerrero Hospital Course: Final diagnosis Atrial fibrillation with RVR History of afib with ablation Possible acute urinary tract infection, present on admission Diabetes mellitus, type 2. Full code Discharge disposition Patient is being discharged in a stable condition with guarded prognosis to home. Patient will follow-up with Dr. Josselin Guerrero in the outpatient setting upon discharge. Patient is to also follow up with Dr. Galvan as scheduled. Recommend to continue with Ceftin 500mg bid for 3 days for possible UTI. Total time taken is greater than 35 minutes. Hospital Course This is a 71-year-old female who was recently admitted palpitations and found to have afib RVR and was being closely monitored. Patient was started on cardizem drip and transitioned to oral medications for rate control and will be following up with Dr. Galvan in the next 1-2 weeks. Continue Eliquis. Patient is feeling better and cleared by cardiology and would like to go home. Currently no reports of chest pain, shortness of breath, or palpitations. Patient is afebrile. No reports of nausea or vomiting and patient is tolerating diet. Patient will be discharged home today. Guarded prognosis. On exam vital signs are stable. Cardio S1, S2 are muffled. Respiratory system shows diminished breath sounds at the bases with no wheezing or rhonchi noted. Abdomen is soft and obese, and nontender. Nervous system shows no focal deficits. Please refer to medication reconciliation sheet for a list of medications. The impression and plan of care has been dictated by Galina Swann, Nurse Practitioner as directed. Dr. Raymond MD I have performed a history and examination and MDM of this patient, discussed the same with the dictator, and agree with the dictator's assessment and plan as written ,documented as a scribe. Based on total visit time, I have performed more than 50% of the visit. Patient Condition at Discharge: Stable Plan - Discharge Summary Discharge Rx Participant: Yes New Discharge Prescriptions: New cefUROXime axetiL [Ceftin] 500 mg PO BID 5 Days #10 tab carvediloL [Coreg] 6.25 mg PO BID #60 tablet Fluconazole [Diflucan] 100 mg PO DAILY 3 Days #3 tab Atorvastatin [Lipitor] 40 mg PO DAILY 30 Days #30 tab Continue Apixaban [Eliquis] 5 mg PO BID #60 tab Empagliflozin [Jardiance] 10 mg PO DAILY Levothyroxine Sodium 150 mcg PO DAILY Mirabegron [Myrbetriq] 25 mg PO DAILY Spironolactone [Aldactone] 25 mg PO DAILY Changed Furosemide [Lasix] 20 mg PO DAILY PRN 15 Days #15 tab PRN Reason: Edema Discontinued carvediloL [Coreg] 3.125 mg PO BID Discharge Medication List Apixaban [Eliquis] 5 mg PO BID #60 tab 02/13/21 [Rx] Levothyroxine Sodium 150 mcg PO DAILY 07/04/21 [History] Empagliflozin [Jardiance] 10 mg PO DAILY 03/15/22 [History] Mirabegron [Myrbetriq] 25 mg PO DAILY 03/15/22 [History] Spironolactone [Aldactone] 25 mg PO DAILY 03/15/22 [History] Atorvastatin [Lipitor] 40 mg PO DAILY 30 Days #30 tab 03/16/22 [Rx] Fluconazole [Diflucan] 100 mg PO DAILY 3 Days #3 tab 03/16/22 [Rx] Furosemide [Lasix] 20 mg PO DAILY PRN 15 Days #15 tab 03/16/22 [Rx] carvediloL [Coreg] 6.25 mg PO BID #60 tablet 03/16/22 [Rx] cefUROXime axetiL [Ceftin] 500 mg PO BID 5 Days #10 tab 03/16/22 [Rx] Follow up Appointment(s)/Referral(s): Mane Galvan MD [STAFF PHYSICIAN] - 04/02/22 11:45 am (Saturday at main office) Josselin Guerrero MD [Primary Care Provider] - 1-2 days (Office is not open at this time. Please call Saturday to get a post hospital follow up appointment.) Ambulatory/Diagnostic Orders: Basic Metabolic Panel [LAB.AMB] Time Frame: 3 Days, Location: None Selected Patient Instructions/Handouts: Atrial Flutter (DC) Activity/Diet/Wound Care/Special Instructions: Activity Limited until follow-up Follow-up with cardiology outpatient as scheduled Continue taking medications as prescribed Recommend repeat labs in 2-3 days to monitor kidney functions Continue heart healthy diet Continue antibiotics and Diflucan to complete the course Continue monitoring blood sugars and keep a diary of blood sugar readings for primary follow-up Discharge Disposition: HOME SELF-CARE
== END 2022-03-16 14:41 | disposition home or self-care (01) ==
LOC: EC 12:09 → 3SCARD 14:52
PROVIDERS: ADMIT Hospitalist; ATTEND Hospitalist
DX: I48.91 Unspecified atrial fibrillation (principal); I47.1 Supraventricular tachycardia; I42.9 Cardiomyopathy, unspecified; E11.9 Type 2 diabetes mellitus without complications; I10 Essential (primary) hypertension; R79.89 Other specified abnormal findings of blood chemistry; R60.0 Localized edema; Z79.01 Long term (current) use of anticoagulants; Z79.84 Long term (current) use of oral hypoglycemic drugs; Z79.890 Hormone replacement therapy; Z79.899 Other long term (current) drug therapy; Z98.51 Tubal ligation status; Z87.891 Personal history of nicotine dependence; Z98.890 Other specified postprocedural states; Z82.5 Family history of asthma and other chronic lower respiratory diseases; Z82.49 Family history of ischemic heart disease and other diseases of the circulatory system
CPT/HCPCS: 96376 ×2; 96365; 96366 ×2; 96367; 96375 ×2; 96361; 99291; 36415; 93306; 84439; 83880; 80061; 80053; 80048; 84443; 83735; 84484; 85025 ×2; 85610; 85730; 81001; 71046; G0378 ×2; J1940 ×2; J0696

== ENCOUNTER 2022-03-21 17:47 | Inpatient (IN) | payer MEDICARE ==
--- NOTE | 2022-03-21 18:20 | ED ---
Arrhythmia/Palpitations HPI - General Chief Complaint: Arrhythmia/Palpitations Stated Complaint: high heart rate Time Seen by Provider: 03/21/22 18:01 Source: patient Mode of arrival: wheelchair Limitations: no limitations - History of Present Illness Initial Comments: 71 year-old female patient presents to the emergency department today reporting dyspnea and rapid heart rate. Patient was hospitalized last for similar symptoms and was found to be in Afib with RVR. She states that she started having symptoms with activity on Saturday. States last night and today she has had rapid heart rate at rest so came back in for further evaluation. They did increase the dose of her Coreg. Review of cardiology note stated she may need ablation or cardioversion. She does have an appointment with them on Saturday. She reports some chest tightness. Denies any nausea or vomiting. Denies any leg swelling. Denies recent fever or chills. Has been taking lasix for lower extremity edema. Patient denies any recent rash, cough, abdominal pain, constipation, back pain, numbness, tingling, dizziness, weakness, hematuria, dysuria, urinary urgency, urinary frequency, headache, visual changes, or any other complaints. - Related Data Home Medications Medication Instructions Recorded Confirmed Levothyroxine Sodium 150 mcg PO DAILY 07/04/21 03/15/22 Empagliflozin [Jardiance] 10 mg PO DAILY 03/15/22 03/15/22 Mirabegron [Myrbetriq] 25 mg PO DAILY 03/15/22 03/15/22 Spironolactone [Aldactone] 25 mg PO DAILY 03/15/22 03/15/22 Furosemide [Lasix] 20 mg PO DAILY 03/21/22 03/21/22 Previous Rx's Medication Instructions Recorded Apixaban [Eliquis] 5 mg PO BID #60 tab 02/13/21 Atorvastatin [Lipitor] 40 mg PO DAILY 30 Days #30 tab 03/16/22 carvediloL [Coreg] 6.25 mg PO BID #60 tablet 03/16/22 cefUROXime axetiL [Ceftin] 500 mg PO BID 5 Days #10 tab 03/16/22 Allergies Allergy/AdvReac Type Severity Reaction Status Date / Time No Known Allergies Allergy Verified 03/21/22 19:18 Review of Systems ROS Statement: Those systems with pertinent positive or pertinent negative responses have been documented in the HPI. ROS Other: All systems not noted in ROS Statement are negative. Past Medical History Past Medical History: Atrial Fibrillation, Diabetes Mellitus Additional Past Medical History / Comment(s): diet controlled DM History of Any Multi-Drug Resistant Organisms: None Reported Past Surgical History: Cardiac Ablation, Tubal Ligation Additional Past Surgical History / Comment(s): lumpectomy right breast, ablation Past Anesthesia/Blood Transfusion Reactions: No Reported Reaction Past Psychological History: No Psychological Hx Reported Smoking Status: Former smoker Past Alcohol Use History: Occasional Past Drug Use History: None Reported - Past Family History Mother Family Medical History: COPD Father Additional Family Medical History / Comment(s): cerebral hemorrhage. General Exam Limitations: no limitations General appearance: alert, in no apparent distress, other (This is a well- developed, well-nourished elderly female patient in no acute distress.) Eye exam: Present: normal appearance, PERRL, EOMI. Absent: scleral icterus, conjunctival injection, periorbital swelling ENT exam: Present: normal exam, normal oropharynx, mucous membranes moist Respiratory exam: Present: normal lung sounds bilaterally. Absent: respiratory distress, wheezes, rales, rhonchi, stridor Cardiovascular Exam: Present: normal rhythm, tachycardia, normal heart sounds. Absent: systolic murmur, diastolic murmur, rubs, gallop, clicks GI/Abdominal exam: Present: soft, normal bowel sounds. Absent: distended, tenderness, guarding, rebound, rigid Neurological exam: Present: alert, oriented X3, CN II-XII intact Psychiatric exam: Present: normal affect, normal mood Skin exam: Present: warm, dry, intact, normal color. Absent: rash Course Vital Signs 03/21/22 03/21/22 17:50 19:28 Temperature 98.1 F Pulse Rate 136 H 137 H Respiratory 22 18 Rate Blood Pressure 101/64 126/78 O2 Sat by Pulse 96 94 L Oximetry EKG Findings - EKG Comments: EKG Findings:: EKG obtained at 1815 shows atrial tachycardia with a rate of 138, MN interval 170, QRS duration 97, QT 146, QTC 227. No evidence of ST elevation or depression. Medical Decision Making - Medical Decision Making 71-year-old female patient presented to the emergency department today for evaluation of elevated heart rate dyspnea. Physical examination did reveal tachycardia with a regular rhythm. EKG showed atrial tachycardia with a rate of 138. Labs reviewed and did reveal sodium 136, chloride 97, BUN 36, creatinine 2.08, GFR 24. Glucose is 312. Acute kidney injury is felt to be related to increased Lasix dosing, we'll start patient on gentle hydration and 50 mL of normal saline per hour. We'll provide coverage with Humalog for elevated blood glucose. She'll be admitted to the hospital for further evaluation by cardiology. She is agreeable with this plan. My attending is Dr. Liu. - Lab Data Result diagrams: 03/21/22 18:33 03/21/22 18:33 Lab Results 03/21/22 03/21/22 03/21/22 Range/Units 18:33 18:33 18:33 WBC 9.0 (3.8-10.6) k/uL RBC 4.71 (3.80-5.40) m/uL Hgb 15.1 (11.4-16.0) gm/dL Hct 44.3 (34.0-46.0) % MCV 94.0 (80.0-100.0) fL MCH 32.0 (25.0-35.0) pg MCHC 34.1 (31.0-37.0) g/dL RDW 16.2 H (11.5-15.5) % Plt Count 230 (150-450) k/uL MPV 7.6 Neutrophils % 68 % Lymphocytes % 19 % Monocytes % 6 % Eosinophils % 4 % Basophils % 2 % Neutrophils # 6.1 (1.3-7.7) k/uL Lymphocytes # 1.7 (1.0-4.8) k/uL Monocytes # 0.6 (0-1.0) k/uL Eosinophils # 0.3 (0-0.7) k/uL Basophils # 0.2 (0-0.2) k/uL Poikilocytosis Slight Anisocytosis Slight PT 10.7 (9.0-12.0) sec INR 1.0 (<1.2) APTT 25.6 (22.0-30.0) sec Sodium 136 L (137-145) mmol/L Potassium 4.6 (3.5-5.1) mmol/L Chloride 97 L (98-107) mmol/L Carbon Dioxide 25 (22-30) mmol/L Anion Gap 14 mmol/L BUN 36 H (7-17) mg/dL Creatinine 2.08 H (0.52-1.04) mg/dL Est GFR (CKD-EPI)AfAm 27 (>60 ml/min/1.73 sqM) Est GFR (CKD-EPI)NonAf 24 (>60 ml/min/1.73 sqM) Glucose 312 H (74-99) mg/dL Calcium 9.5 (8.4-10.2) mg/dL Magnesium 2.0 (1.6-2.3) mg/dL Total Bilirubin 0.8 (0.2-1.3) mg/dL AST 26 (14-36) U/L ALT 23 (4-34) U/L Alkaline Phosphatase 76 (38-126) U/L Troponin I (0.000-0.034) ng/mL Total Protein 7.3 (6.3-8.2) g/dL Albumin 4.6 (3.5-5.0) g/dL 03/21/22 Range/Units 18:33 WBC (3.8-10.6) k/uL RBC (3.80-5.40) m/uL Hgb (11.4-16.0) gm/dL Hct (34.0-46.0) % MCV (80.0-100.0) fL MCH (25.0-35.0) pg MCHC (31.0-37.0) g/dL RDW (11.5-15.5) % Plt Count (150-450) k/uL MPV Neutrophils % % Lymphocytes % % Monocytes % % Eosinophils % % Basophils % % Neutrophils # (1.3-7.7) k/uL Lymphocytes # (1.0-4.8) k/uL Monocytes # (0-1.0) k/uL Eosinophils # (0-0.7) k/uL Basophils # (0-0.2) k/uL Poikilocytosis Anisocytosis PT (9.0-12.0) sec INR (<1.2) APTT (22.0-30.0) sec Sodium (137-145) mmol/L Potassium (3.5-5.1) mmol/L Chloride (98-107) mmol/L Carbon Dioxide (22-30) mmol/L Anion Gap mmol/L BUN (7-17) mg/dL Creatinine (0.52-1.04) mg/dL Est GFR (CKD-EPI)AfAm (>60 ml/min/1.73 sqM) Est GFR (CKD-EPI)NonAf (>60 ml/min/1.73 sqM) Glucose (74-99) mg/dL Calcium (8.4-10.2) mg/dL Magnesium (1.6-2.3) mg/dL Total Bilirubin (0.2-1.3) mg/dL AST (14-36) U/L ALT (4-34) U/L Alkaline Phosphatase (38-126) U/L Troponin I <0.012 (0.000-0.034) ng/mL Total Protein (6.3-8.2) g/dL Albumin (3.5-5.0) g/dL - Radiology Data Radiology results: report reviewed, image reviewed Two-view x-ray of the chest is obtained. Report was reviewed in its entirety. Impression by Dr. Allen shows no active cardiopulmonary disease. Normal heart. No change. Disposition Clinical Impression: Atrial tachycardia, Acute kidney injury Disposition: ADMITTED IP TO THIS HOSP Condition: Serious Referrals: Josselin Guerrero MD [Primary Care Provider] - 1-2 days Decision to Admit Reason: Admit from EC Decision Date: 03/21/22 Decision Time: 19:30
--- NOTE | 2022-03-21 18:32 | XR ---
EXAMINATION TYPE: XR chest 2V DATE OF EXAM: 03/21/2022 COMPARISON: 03/15/2022 HISTORY: Dysrhythmia TECHNIQUE: FINDINGS: Heart is normal. Lungs are clear of consolidation. There is no heart failure. Bony vascularity is normal. Costophrenic angles are clear. Bony thorax is intact. IMPRESSION: No active cardiopulmonary disease. Normal heart. No change.
[2022-03-21 18:42] LABS: Anisocytosis Slight; Basophils # (A) 0.2 k/uL (0-0.2); Basophils % (A) 2 %; Eosinophils # (A) 0.3 k/uL (0-0.7); Eosinophils % (A) 4 %; HCT 44.3 % (34.0-46.0); HGB 15.1 gm/dL (11.4-16.0); Lymphocytes # (A) 1.7 k/uL (1.0-4.8); Lymphocytes % (A) 19 %; MCHC 34.1 g/dL (31.0-37.0); Mean Platelet Volume 7.6; Monocytes # (A) 0.6 k/uL (0-1.0); Monocytes % (A) 6 %; Neutrophils # (A) 6.1 k/uL (1.3-7.7); Neutrophils % (A) 68 %; Platelet Count 230 k/uL (150-450); Poikilocytosis Slight; RBC 4.71 m/uL (3.80-5.40); RDW 16.2 % (11.5-15.5)
[2022-03-21 18:51] LABS: Partial Thromboplastin Time 25.6 sec (22.0-30.0); Prothrombin Time 10.7 sec (9.0-12.0)
[2022-03-21 18:52] LABS: Albumin 4.6 g/dL (3.5-5.0); Calcium 9.5 mg/dL (8.4-10.2); Potassium 4.6 mmol/L (3.5-5.1); Total Bilirubin 0.8 mg/dL (0.2-1.3); Total Protein 7.3 g/dL (6.3-8.2)
[2022-03-21] MEDS ORDERED: DILTIAZEM DRIP BOLUS FROM BAG 1 MG SOLN IV ONE (19:11)
[2022-03-21] MEDS ORDERED: NALOXONE 0.4 MG/ML 1 ML VIAL IV PRN (19:27)
[2022-03-21] MEDS: INSULIN ASPART (NovoLOG) 100 UNIT/ML VIAL SQ SCH (19:52)
[2022-03-21] MEDS: SODIUM CHLORIDE 0.9% 1,000 ML IV SCH (19:52)
[2022-03-21] MEDS: carvediloL 6.25 MG TAB PO SCH (22:36)
[2022-03-22] MEDS: LEVOTHYROXINE 75 MCG TAB PO SCH (05:49)
[2022-03-22 07:14] LABS: Appearance,Urine Clear (Clear); Bilirubin,Urine Negative (Negative); Blood,Urine Moderate (Negative); Color,Urine Yellow; Glucose,Urine (UA) 4+ (Negative); Ketones,Urine Negative (Negative); Leukocyte Esterase,Urine Negative (Negative); Mucus,Urine Rare /hpf; Nitrite,Urine Negative (Negative); Protein,Urine Negative (Negative); RBC,Urine 2 /hpf (0-5); Specific Gravity,Urine 1.029 (1.001-1.035); Squamous Epithelial Cell,Urine 2 /hpf (0-4); Urobilinogen,Urine <2.0 mg/dL (<2.0); WBC,Urine 1 /hpf (0-5)
[2022-03-22 07:19] LABS: Glucose,Whole Blood 201 mg/dL (70-110)
[2022-03-22 08:16] LABS: African American GFR (CKD) 42 (>60 ml/min/1.73 sqM); Anion Gap 13 mmol/L; Blood Urea Nitrogen 28 mg/dL (7-17); Calcium 8.6 mg/dL (8.4-10.2); Carbon Dioxide 20 mmol/L (22-30); Chloride 104 mmol/L (98-107); Glucose 202 mg/dL (74-99); Non-African American GFR(CKD) 37 (>60 ml/min/1.73 sqM); Sodium 137 mmol/L (137-145)
[2022-03-22 08:26] LABS: Magnesium 1.9 mg/dL (1.6-2.3); Potassium 4.3 mmol/L (3.5-5.1)
[2022-03-22] MEDS: SPIRONOLACTONE 25 MG TAB PO SCH (08:27)
[2022-03-22] MEDS: carvediloL 6.25 MG TAB PO SCH (08:27)
[2022-03-22] MEDS: APIXABAN 5 MG TAB PO SCH ×2 (08:28→20:38)
[2022-03-22] MEDS: ATORVASTATIN 40 MG TAB PO SCH (09:01)
--- NOTE | 2022-03-22 09:38 | P.CRDCN ---
History of Present Illness Consult date: 03/22/22 Chief complaint: Heart racing/shortness of breath History of present illness: This is a 71-year-old female patient with a past medical history significant for paroxysmal atrial fibrillation who underwent ablation in the past as well as hypertension and dyslipidemia and diabetes and obesity and history of smoking is back in the hospital again. She just was admitted to the hospital recently with shortness of breath and she was diagnosed with atrial tachycardia. Her medications were adjusted and she was discharged to have an appointment with Dr. Galvan in the next few days. Unfortunately she presented back with increasing shortness of breath associated with dizziness and lightheadedness but no presyncope or syncope and no symptoms of chest pain or chest discomfort. The EKG showed atrial tachycardia with heart rate around 130 beats per minutes. She is on oral anticoagulation she has been taken it. On examination she seems to be euvolemic and she is not in congestive heart failure. She has been taking her oral anticoagulation on daily basis and she stated that she did not quit taking it. I discussed the case with her primary pin worker Dr. Galvan who is planning to do atrial tachycardia ablation on her in the next few days. Meanwhile because her pressure has been marginal and currently she is on carvedilol and going to stop that and start the patient on metoprolol tartrate and continue up titrating the dose if her pressure allow. Meanwhile continue her oral anticoagulation. During her last hospital admission she was investigated an echocardiogram revealed normal left ventricle systolic function was EF of 50% was no significant valvular abnormalities. Past Medical History Past Medical History: Atrial Fibrillation, Diabetes Mellitus Additional Past Medical History / Comment(s): diet controlled DM History of Any Multi-Drug Resistant Organisms: None Reported Past Surgical History: Cardiac Ablation, Tubal Ligation Additional Past Surgical History / Comment(s): lumpectomy right breast, ablation Past Anesthesia/Blood Transfusion Reactions: No Reported Reaction Past Psychological History: No Psychological Hx Reported Smoking Status: Former smoker Past Alcohol Use History: Occasional Additional Past Alcohol Use History / Comment(s): quit smoking january 2021. previously smoked over 1ppd. Past Drug Use History: None Reported - Past Family History Mother Family Medical History: COPD Father Additional Family Medical History / Comment(s): cerebral hemorrhage. Medications and Allergies Home Medications Medication Instructions Recorded Confirmed Type Apixaban [Eliquis] 5 mg PO BID #60 tab 02/13/21 03/21/22 Rx Levothyroxine Sodium 150 mcg PO DAILY 07/04/21 03/21/22 History Empagliflozin [Jardiance] 10 mg PO DAILY 03/15/22 03/21/22 History Mirabegron [Myrbetriq] 25 mg PO DAILY 03/15/22 03/21/22 History Spironolactone [Aldactone] 25 mg PO DAILY 03/15/22 03/21/22 History Atorvastatin [Lipitor] 40 mg PO DAILY 30 Days #30 tab 03/16/22 03/21/22 Rx carvediloL [Coreg] 6.25 mg PO BID #60 tablet 03/16/22 03/21/22 Rx cefUROXime axetiL [Ceftin] 500 mg PO BID 5 Days #10 tab 03/16/22 03/21/22 Rx Furosemide [Lasix] 20 mg PO DAILY 03/21/22 03/21/22 History Allergies Allergy/AdvReac Type Severity Reaction Status Date / Time No Known Allergies Allergy Verified 03/21/22 19:18 Physical Exam Vitals: Vital Signs Temp Pulse Pulse Resp BP BP Pulse Ox 03/22/22 07:00 97.7 F 125 H 17 126/73 96 03/22/22 02:02 97.5 F L 131 H 18 92/59 94 L 03/21/22 20:44 98.1 F 139 H 17 114/59 96 03/21/22 19:28 137 H 18 126/78 94 L 03/21/22 17:50 98.1 F 136 H 22 101/64 96 Intake and Output 03/21/22 03/22/22 03/22/22 22:59 06:59 14:59 Other: Voiding Method Toilet Toilet # Voids 1 2 Weight 113.398 kg - Constitutional General appearance: no acute distress - Respiratory Respiratory: bilateral: CTA - Cardiovascular Rhythm: regular Heart sounds: normal: S1, S2 Results 03/21/22 18:33 03/22/22 07:27 Cardiac Enzymes 03/21/22 03/21/22 Range/Units 18:33 18:33 AST 26 (14-36) U/L Troponin I <0.012 (0.000-0.034) ng/mL Coagulation 03/21/22 Range/Units 18:33 PT 10.7 (9.0-12.0) sec APTT 25.6 (22.0-30.0) sec CBC 03/21/22 Range/Units 18:33 WBC 9.0 (3.8-10.6) k/uL RBC 4.71 (3.80-5.40) m/uL Hgb 15.1 (11.4-16.0) gm/dL Hct 44.3 (34.0-46.0) % Plt Count 230 (150-450) k/uL Comprehensive Metabolic Panel 03/21/22 03/22/22 Range/Units 18:33 07:27 Sodium 136 L 137 (137-145) mmol/L Potassium 4.6 4.3 (3.5-5.1) mmol/L Chloride 97 L 104 (98-107) mmol/L Carbon Dioxide 25 20 L (22-30) mmol/L BUN 36 H 28 H (7-17) mg/dL Creatinine 2.08 H 1.45 H (0.52-1.04) mg/dL Glucose 312 H 202 H (74-99) mg/dL Calcium 9.5 8.6 (8.4-10.2) mg/dL AST 26 (14-36) U/L ALT 23 (4-34) U/L Alkaline Phosphatase 76 (38-126) U/L Total Protein 7.3 (6.3-8.2) g/dL Albumin 4.6 (3.5-5.0) g/dL Current Medications Generic Name Dose Route Start Last Admin Trade Name Freq PRN Reason Stop Dose Admin Apixaban 5 mg 03/22/22 09:00 03/22/22 08:28 Apixaban 5 Mg Tab PO 5 mg BID DAMARIS Administration Protocol Atorvastatin Calcium 40 mg 03/22/22 09:00 03/22/22 09:01 Atorvastatin 40 Mg Tab PO 40 mg DAILY DAMARIS Administration Furosemide 20 mg 03/22/22 09:00 Furosemide 20 Mg Tab PO DAILY DAMARIS Diltiazem HCl 125 mg/ Sodium 125 mls @ 5 mls/hr 03/21/22 19:15 Chloride IV .Q24H DAMARIS 5 MG/HR Sodium Chloride 1,000 mls @ 50 mls/hr 03/21/22 19:30 03/21/22 19:52 Saline 0.9% IV 50 mls/hr .Q20H DAMARIS Administration Insulin Aspart 0 unit 03/21/22 21:00 03/21/22 19:52 Insulin Aspart (Novolog) 100 Unit/Ml Vial SQ 5 unit ACHS ADMARIS Administration Protocol Levothyroxine Sodium 150 mcg 03/22/22 06:30 03/22/22 05:49 Levothyroxine 75 Mcg Tab PO 150 mcg DAILY@0630 DAMARIS Administration Metoprolol Tartrate 25 mg 03/22/22 21:00 Metoprolol Tartrate 25 Mg Tab PO BID DAMARIS Naloxone HCl 0.2 mg 03/21/22 19:27 Naloxone 0.4 Mg/Ml 1 Ml Vial IV Q2M PRN Opioid Reversal Spironolactone 25 mg 03/22/22 09:00 03/22/22 08:27 Spironolactone 25 Mg Tab PO 25 mg DAILY DAMARIS Administration Intake and Output 03/21/22 03/22/22 03/22/22 22:59 06:59 14:59 Other: Voiding Method Toilet Toilet # Voids 1 2 Weight 113.398 kg 03/21/22 18:33 03/22/22 07:27 Assessment and Plan Assessment: Assessment #1 atrial tachycardia with uncontrolled heart rate #2 marginally low blood pressure #3 history of paroxysmal atrial fibrillation #4 multiple comorbid conditions including diabetes and hypertension and dyslipidemia and obesity and smoking Plan #1 continue oral anticoagulation #2 DC carvedilol and start the patient on metoprolol #3 continue up titrating the dose of metoprolol #4 monitor the patient overnight
--- NOTE | 2022-03-22 12:01 | P.HPIM ---
History of Present Illness This is a pleasant 71 years old female with past medical history of atrial fibrillation on Eliquis status post ablation, hypothyroidism, hypertension, diabetes mellitus Patient presents because of palpitation. Patient reports some palpitation with heart rate around 140 last Saturday about 2 days ago, she was improved and sent home and felt better, however next day she was started having shortness of breath again similar to first time also associated with palpitation and when she came into the hospital her heart rate was still in 140 as she states. Currently she denies chest pain, no dizziness, no shortness of breath which is resolved now. No abdominal pain or vomiting or diarrhea. No urinary complaints or dysuria. No fever. She quit smoking about 1 year ago, no alcohol or illicit drugs. She states she was on Ceftin for UTI However repeat urinalysis is not suspicious of infection and because patient has no urinary symptoms therefore we going to hold on antibiotics and we'll keep monitoring On admission patient was tachycardic with heart rate 1:30 to 139. Patient is afebrile. Blood pressure 92/59, unremarkable cbc, inr, creatinine is elevated at 2.0. Baseline is 1.3-1.4 Troponin is negative. Liver enzymes are not elevated. Chest x-ray: No acute process. EKG: Ectopic atrial tachycardia at a rate of 138 On admission she received Coreg and normal saline at 50 mL per hour and resumed her Eliquis as well as Cardizem drip Repeat creatinine today showed improvement of 2.0 down to 1.4 which is close to her baseline Review of Systems Review of systems CONSTITUTIONAL: No fever, no malaise, no fatigue. HEENT: No recent visual problems or hearing problems. Denied any sore throat. CARDIOVASCULAR: No orthopnea, PND, no palpitations, no syncope. PULMONARY: No shortness of breath, no cough, no hemoptysis. GASTROINTESTINAL: No diarrhea, no nausea, no vomiting, no abdominal pain. Normoactive bowel sounds. NEUROLOGICAL: No headaches, no weakness, no numbness. HEMATOLOGICAL: Denies any bleeding or petechiae. GENITOURINARY: Denies any burning micturition, frequency, or urgency. MUSCULOSKELETAL/RHEUMATOLOGICAL: Denies any joint pain, swelling, or any muscle pain. ENDOCRINE: Denies any polyuria or polydipsia. Past Medical History Past Medical History: Atrial Fibrillation, Diabetes Mellitus Additional Past Medical History / Comment(s): diet controlled DM History of Any Multi-Drug Resistant Organisms: None Reported Past Surgical History: Cardiac Ablation, Tubal Ligation Additional Past Surgical History / Comment(s): lumpectomy right breast, ablation Past Anesthesia/Blood Transfusion Reactions: No Reported Reaction Past Psychological History: No Psychological Hx Reported Smoking Status: Former smoker Past Alcohol Use History: Occasional Additional Past Alcohol Use History / Comment(s): quit smoking january 2021. previously smoked over 1ppd. Past Drug Use History: None Reported - Past Family History Mother Family Medical History: COPD Father Additional Family Medical History / Comment(s): cerebral hemorrhage. Medications and Allergies Home Medications Medication Instructions Recorded Confirmed Type Apixaban [Eliquis] 5 mg PO BID #60 tab 02/13/21 03/21/22 Rx Levothyroxine Sodium 150 mcg PO DAILY 07/04/21 03/21/22 History Empagliflozin [Jardiance] 10 mg PO DAILY 03/15/22 03/21/22 History Mirabegron [Myrbetriq] 25 mg PO DAILY 03/15/22 03/21/22 History Spironolactone [Aldactone] 25 mg PO DAILY 03/15/22 03/21/22 History Atorvastatin [Lipitor] 40 mg PO DAILY 30 Days #30 tab 03/16/22 03/21/22 Rx carvediloL [Coreg] 6.25 mg PO BID #60 tablet 03/16/22 03/21/22 Rx cefUROXime axetiL [Ceftin] 500 mg PO BID 5 Days #10 tab 03/16/22 03/21/22 Rx Furosemide [Lasix] 20 mg PO DAILY 03/21/22 03/21/22 History Allergies Allergy/AdvReac Type Severity Reaction Status Date / Time No Known Allergies Allergy Verified 03/21/22 19:18 Physical Exam Vitals: Vital Signs Temp Pulse Pulse Resp BP BP Pulse Ox 03/22/22 08:00 125 H 17 03/22/22 07:00 97.7 F 125 H 17 126/73 96 03/22/22 02:02 97.5 F L 131 H 18 92/59 94 L 03/21/22 20:44 98.1 F 139 H 17 114/59 96 03/21/22 19:28 137 H 18 126/78 94 L 03/21/22 17:50 98.1 F 136 H 22 101/64 96 Intake and Output 03/21/22 03/22/22 03/22/22 22:59 06:59 14:59 Other: Voiding Method Toilet Toilet Toilet # Voids 1 2 Weight 113.398 kg GENERAL: The patient is alert and oriented x3, not in any acute distress. Well developed, well nourished. HEENT: Pupils are round and equally reacting to light. EOMI. No scleral icterus. No conjunctival pallor. Normocephalic, atraumatic. No pharyngeal erythema. No thyromegaly. CARDIOVASCULAR: S1 and S2 present. No murmurs, rubs, or gallops. PULMONARY: Chest is clear to auscultation, no wheezing or crackles. ABDOMEN: Soft, nontender, nondistended, normoactive bowel sounds. No palpable organomegaly. MUSCULOSKELETAL: No joint swelling or deformity. EXTREMITIES: No cyanosis, clubbing, or pedal edema. NEUROLOGICAL: Gross neurological examination did not reveal any focal deficits. SKIN: No rashes. no petechiae. Results CBC & Chem 7: 03/21/22 18:33 03/22/22 07:27 Labs: Abnormal Lab Results - Last 24 Hours (Table) 03/21/22 03/21/22 03/22/22 Range/Units 18:33 18:33 07:04 RDW 16.2 H (11.5-15.5) % Sodium 136 L (137-145) mmol/L Chloride 97 L (98-107) mmol/L Carbon Dioxide (22-30) mmol/L BUN 36 H (7-17) mg/dL Creatinine 2.08 H (0.52-1.04) mg/dL Glucose 312 H (74-99) mg/dL POC Glucose (mg/dL) (70-110) mg/dL Urine Glucose (UA) 4+ H (Negative) Urine Blood Moderate H (Negative) Urine Mucus Rare H (None) /hpf 03/22/22 03/22/22 Range/Units 07:17 07:27 RDW (11.5-15.5) % Sodium (137-145) mmol/L Chloride (98-107) mmol/L Carbon Dioxide 20 L (22-30) mmol/L BUN 28 H (7-17) mg/dL Creatinine 1.45 H (0.52-1.04) mg/dL Glucose 202 H (74-99) mg/dL POC Glucose (mg/dL) 201 H (70-110) mg/dL Urine Glucose (UA) (Negative) Urine Blood (Negative) Urine Mucus (None) /hpf Assessment and Plan Assessment: A. fib and RVR, patient is on Eliquis Acute kidney injury, improved Chronic kidney disease, stage III Diabetes mellitus Hypertension Hypothyroidism Plan: This is a pleasant 71 years old female who presents with A. fib and RVR Continue with Cardizem drip and restarted medication when appropriate, continue with Coreg, we would recommend to switch her beta paz to metoprolol however we will defer this management to cardiology team Telemetry monitoring Cardiology consult Continue with insulin sliding scale, and jardiance Check proBNP, check TSH Labs and medication were reviewed.. Continue same treatment. Continue with symptomatic treatment. Resume home medication. Monitor lytes and vitals. DVT and GI prophylaxis. Further recommendations depends on the clinical course of the patient DVT prophylaxis: Eliquis GI Prophylaxis: Pepcid PT/OT: Pending Prognosis is guarded
[2022-03-22 12:07] LABS: Glucose,Whole Blood 224 mg/dL (70-110)
[2022-03-22] MEDS: INSULIN ASPART (NovoLOG) 100 UNIT/ML VIAL SQ SCH ×4 (12:16→21:05)
[2022-03-22] MEDS: FUROSEMIDE 20 MG TAB PO SCH (12:56)
[2022-03-22] MEDS: Empagliflozin [Jardiance] PO SCH (12:57)
[2022-03-22 16:52] LABS: Glucose,Whole Blood 194 mg/dL (70-110)
--- NOTE | 2022-03-22 17:11 | P.PN ---
Progress Note - Text Patient evaluated We will schedule for an EP study ablation on Saturday as an inpatient Please do not discharge the patient Continue diltiazem Continue metoprolol tartrate Please continue ELIQUIS even on the morning of the procedure Discussed with the patient
[2022-03-22] MEDS: SODIUM CHLORIDE 0.9% 1,000 ML IV SCH ×2 (18:56→18:57)
[2022-03-22 20:55] LABS: Glucose,Whole Blood 303 mg/dL (70-110)
[2022-03-22] MEDS ORDERED: SODIUM CHLORIDE 0.9% 500 ML 500 ML IV ONE (21:01)
[2022-03-22] MEDS: METOPROLOL TARTRATE 25 MG TAB PO SCH (21:05)
[2022-03-23] MEDS: LEVOTHYROXINE 75 MCG TAB PO SCH (05:30)
[2022-03-23 07:19] LABS: Glucose,Whole Blood 166 mg/dL (70-110)
[2022-03-23] MEDS: ATORVASTATIN 40 MG TAB PO SCH (07:42)
[2022-03-23] MEDS: SPIRONOLACTONE 25 MG TAB PO SCH (07:42)
[2022-03-23] MEDS: APIXABAN 5 MG TAB PO SCH ×2 (07:42→21:00)
[2022-03-23] MEDS: FUROSEMIDE 20 MG TAB PO SCH (07:42)
[2022-03-23] MEDS: INSULIN ASPART (NovoLOG) 100 UNIT/ML VIAL SQ SCH ×4 (07:43→21:00)
--- NOTE | 2022-03-23 10:38 | P.PN ---
Subjective Progress Note Date: 03/23/22 Principal diagnosis: Atrial tachycardia This is a 71-year-old female patient with known history of paroxysmal atrial fibrillation who underwent ablation recently and also known history of atrial tachycardia who was admitted to the hospital with increasing shortness of breath and she was found to be tachycardic. She had similar admission a few days ago. She scheduled to undergo atrial tachycardia ablation in the next few weeks. She was seen this morning. Yesterday we started the patient on metoprolol succinate. Her heart rate seems to be somewhat improved and clinically she seems to be better. She is not in overt congestive heart failure. She was on Aldactone and I'm going to stop it because her pressure has been on the low side. At this point the patient is scheduled to have the ablation this coming Saturday. Continue oral anticoagulation for now Objective - Vital Signs Vital signs: Vital Signs Temp 97.6 F 03/23/22 07:00 Pulse 122 H 03/23/22 08:00 Resp 18 03/23/22 08:00 BP 76/50 03/23/22 07:00 Pulse Ox 94 L 03/23/22 07:00 FiO2 Intake & Output 03/22/22 03/23/22 03/23/22 18:59 06:59 18:59 Intake Total 118 118 Balance 118 118 Intake: Oral 118 118 Other: Voiding Method Toilet Toilet Toilet # Voids 3 2 - Constitutional General appearance: Present: no acute distress - Respiratory Respiratory: bilateral: CTA - Cardiovascular Rhythm: regular Heart sounds: normal: S1, S2 - Labs CBC & Chem 7: 03/21/22 18:33 03/22/22 07:27 Labs: Abnormal Lab Results - Last 24 Hours (Table) 03/22/22 03/22/22 03/22/22 Range/Units 07:27 12:06 16:50 POC Glucose (mg/dL) 224 H 194 H (70-110) mg/dL Hemoglobin A1c 8.9 H (0.0-6.0) % 03/22/22 03/23/22 Range/Units 20:53 07:18 POC Glucose (mg/dL) 303 H 166 H (70-110) mg/dL Hemoglobin A1c (0.0-6.0) % Assessment and Plan Assessment: Assessment #1 atrial tachycardia with uncontrolled heart rate #2 marginally low blood pressure #3 history of paroxysmal atrial fibrillation #4 multiple comorbid conditions including diabetes and hypertension and dyslipidemia and obesity and smoking Plan #1 continue oral anticoagulation #2 DC Aldactone in the light of low blood pressure #3 continue up titrating the dose of beta paz if the pressure allowed down the line #4 the patient is going to have another lesion for the atrial tachycardia this coming Saturday
[2022-03-23] MEDS: METOPROLOL TARTRATE 25 MG TAB PO SCH ×2 (11:08→21:00)
[2022-03-23 12:08] LABS: Glucose,Whole Blood 221 mg/dL (70-110)
[2022-03-23] MEDS: Empagliflozin [Jardiance] PO SCH (15:55)
[2022-03-23 16:59] LABS: Glucose,Whole Blood 180 mg/dL (70-110)
[2022-03-23] MEDS: SODIUM CHLORIDE 0.9% 1,000 ML IV SCH ×2 (19:38→19:39)
[2022-03-23 20:15] LABS: Glucose,Whole Blood 273 mg/dL (70-110)
[2022-03-24] MEDS: LEVOTHYROXINE 75 MCG TAB PO SCH (05:56)
[2022-03-24 07:01] LABS: Glucose,Whole Blood 178 mg/dL (70-110)
[2022-03-24] MEDS: METOPROLOL TARTRATE 25 MG TAB PO SCH ×2 (08:31→20:47)
[2022-03-24] MEDS: APIXABAN 5 MG TAB PO SCH ×2 (08:31→20:47)
[2022-03-24] MEDS: ATORVASTATIN 40 MG TAB PO SCH (08:31)
[2022-03-24] MEDS: FUROSEMIDE 20 MG TAB PO SCH (08:31)
[2022-03-24] MEDS: INSULIN ASPART (NovoLOG) 100 UNIT/ML VIAL SQ SCH ×4 (08:31→22:31)
[2022-03-24] MEDS: Empagliflozin [Jardiance] PO SCH (08:33)
--- NOTE | 2022-03-24 09:57 | P.PN ---
Subjective HISTORY OF PRESENTING ILLNESS Atrial tachycardia This is a 71-year-old female patient with known history of paroxysmal atrial fibrillation who underwent ablation recently and also known history of atrial tachycardia who was admitted to the hospital with increasing shortness of breath and she was found to be tachycardic. She had similar admission a few days ago. She scheduled to undergo atrial tachycardia ablation in the next few weeks. She was seen this morning. Yesterday we started the patient on metoprolol succinate. Her heart rate seems to be somewhat improved and clinically she seems to be better. She is not in overt congestive heart failure. She was on Aldactone and I'm going to stop it because her pressure has been on the low side. At this point the patient is scheduled to have the ablation this coming Saturday. Continue oral anticoagulation for now 03/24 Patient has been maintained on anticoagulation and denies any hematochezia or melena. Cardizem drip has been discontinued and the metoprolol currently at Lopressor 25 twice a day. Blood pressures somewhat borderline 90s over 60s however denies any lightheadedness or dizziness. Previous creatinine had improved. Remains tachycardic with heart rates in the 100-110s. PHYSICAL EXAMINATION Vital signs reviewed. CONSTITUTIONAL: No apparent distress. HEENT: Head is normocephalic. Pupils are equal, round. Sclerae anicteric. Mucous membranes of the mouth are moist. No JVD. No carotid bruit. CHEST EXAMINATION: Lungs are clear to auscultation. No chest wall tenderness is noted on palpation or with deep breathing. HEART EXAMINATION: Tachycardic rate and rhythm. S1, S2 heard. No murmurs, gallops or rub. ABDOMEN: Soft, nontender. Positive bowel sounds. EXTREMITIES: 2+ peripheral pulses, no lower extremity edema and no calf tenderness. NEUROLOGIC EXAMINATION: Patient is awake, alert and oriented x3. Assessment #1 atrial tachycardia with uncontrolled heart rate #2 marginally low blood pressure #3 history of paroxysmal atrial fibrillation #4 multiple comorbid conditions including diabetes and hypertension and dyslipidemia and obesity and smoking Plan #1 continue oral anticoagulation Continue with current dose of metoprolol and ablation planned for Saturday. Objective - Vital Signs Vital signs: Vital Signs Temp 97.4 F L 03/24/22 07:00 Pulse 97 03/24/22 08:00 Resp 18 03/24/22 08:00 BP 92/60 03/24/22 07:00 Pulse Ox 95 03/24/22 07:00 FiO2 Intake & Output 03/23/22 03/24/22 03/24/22 18:59 06:59 18:59 Intake Total 356 118 Balance 356 118 Intake: Oral 356 118 Other: Voiding Method Toilet Toilet Toilet # Voids 3 2 - Labs CBC & Chem 7: 03/21/22 18:33 03/22/22 07:27 Labs: Abnormal Lab Results - Last 24 Hours (Table) 03/23/22 03/23/22 03/23/22 Range/Units 12:04 16:57 20:13 POC Glucose (mg/dL) 221 H 180 H 273 H (70-110) mg/dL 03/24/22 Range/Units 07:00 POC Glucose (mg/dL) 178 H (70-110) mg/dL
[2022-03-24 11:53] LABS: Glucose,Whole Blood 270 mg/dL (70-110)
--- NOTE | 2022-03-24 12:55 | P.PN ---
Subjective Progress Note Date: 03/23/22 71 years old female with past medical history of atrial fibrillation on Eliquis status post ablation, hypothyroidism, hypertension, diabetes mellitus Patient presents because of palpitation. Patient reports some palpitation with heart rate around 140 last Saturday about 2 days ago, she was improved and sent home and felt better, however next day she was started having shortness of breath again similar to first time also associated with palpitation and when she came into the hospital her heart rate was still in 140 as she states. Currently she denies chest pain, no dizziness, no shortness of breath which is resolved now. No abdominal pain or vomiting or diarrhea. No urinary complaints or dysuria. No fever. She quit smoking about 1 year ago, no alcohol or illicit drugs. She states she was on Ceftin for UTI However repeat urinalysis is not suspicious of infection and because patient has no urinary symptoms therefore we going to hold on antibiotics and we'll keep monitoring On admission patient was tachycardic with heart rate 1:30 to 139. Patient is afebrile. Blood pressure 92/59, unremarkable cbc, inr, creatinine is elevated at 2.0. Baseline is 1.3-1.4 Troponin is negative. Liver enzymes are not elevated. Chest x-ray: No acute process. EKG: Ectopic atrial tachycardia at a rate of 138 On admission she received Coreg and normal saline at 50 mL per hour and resumed her Eliquis as well as Cardizem drip Repeat creatinine today showed improvement of 2.0 down to 1.4 which is close to her baseline Objective - Vital Signs Vital signs: Vital Signs Temp 97.5 F L 03/23/22 13:58 Pulse 124 H 03/23/22 14:00 Resp 18 03/23/22 14:00 BP 96/65 03/23/22 13:58 Pulse Ox 95 03/23/22 13:58 FiO2 Intake & Output 03/22/22 03/23/22 03/23/22 18:59 06:59 18:59 Intake Total 118 236 Balance 118 236 Intake: Oral 118 236 Other: Voiding Method Toilet Toilet Toilet # Voids 3 2 3 - Exam GENERAL: The patient is alert and oriented x3, not in any acute distress. Well developed, well nourished. HEENT: Pupils are round and equally reacting to light. EOMI. No scleral icterus. No conjunctival pallor. Normocephalic, atraumatic. No pharyngeal erythema. No thyromegaly. CARDIOVASCULAR: S1 and S2 present. No murmurs, rubs, or gallops. PULMONARY: Chest is clear to auscultation, no wheezing or crackles. ABDOMEN: Soft, nontender, nondistended, normoactive bowel sounds. No palpable organomegaly. MUSCULOSKELETAL: No joint swelling or deformity. EXTREMITIES: No cyanosis, clubbing, or pedal edema. NEUROLOGICAL: Gross neurological examination did not reveal any focal deficits. SKIN: No rashes. no petechiae. - Labs CBC & Chem 7: 03/21/22 18:33 03/22/22 07:27 Labs: Abnormal Lab Results - Last 24 Hours (Table) 03/22/22 03/23/22 03/23/22 Range/Units 20:53 07:18 12:04 POC Glucose (mg/dL) 303 H 166 H 221 H (70-110) mg/dL 03/23/22 Range/Units 16:57 POC Glucose (mg/dL) 180 H (70-110) mg/dL Assessment and Plan Assessment: A. fib and RVR, patient is on Eliquis Acute kidney injury, improved Chronic kidney disease, stage III Diabetes mellitus Hypertension Hypothyroidism Plan: This is a pleasant 71 years old female who presents with A. fib and RVR Continue with Cardizem drip and restarted medication when appropriate, continue with Coreg, we would recommend to switch her beta paz to metoprolol however we will defer this management to cardiology team Telemetry monitoring Cardiology consult Continue with insulin sliding scale, and jardiance Check proBNP, check TSH Labs and medication were reviewed.. Continue same treatment. Continue with symptomatic treatment. Resume home medication. Monitor lytes and vitals. DVT and GI prophylaxis. Further recommendations depends on the clinical course of the patient DVT prophylaxis: Eliquis GI Prophylaxis: Pepcid PT/OT: Pending Prognosis is guarded
[2022-03-24] MEDS: SODIUM CHLORIDE 0.9% 1,000 ML IV SCH ×2 (15:47→20:48)
[2022-03-24 17:06] LABS: Glucose,Whole Blood 206 mg/dL (70-110)
--- NOTE | 2022-03-24 20:00 | P.PN ---
Subjective Progress Note Date: 03/24/22 71 years old female with past medical history of atrial fibrillation on Eliquis status post ablation, hypothyroidism, hypertension, diabetes mellitus Patient presents because of palpitation. Patient reports some palpitation with heart rate around 140 last Saturday about 2 days ago, she was improved and sent home and felt better, however next day she was started having shortness of breath again similar to first time also associated with palpitation and when she came into the hospital her heart rate was still in 140 as she states. Currently she denies chest pain, no dizziness, no shortness of breath which is resolved now. No abdominal pain or vomiting or diarrhea. No urinary complaints or dysuria. No fever. She quit smoking about 1 year ago, no alcohol or illicit drugs. She states she was on Ceftin for UTI However repeat urinalysis is not suspicious of infection and because patient has no urinary symptoms therefore we going to hold on antibiotics and we'll keep monitoring On admission patient was tachycardic with heart rate 1:30 to 139. Patient is afebrile. Blood pressure 92/59, unremarkable cbc, inr, creatinine is elevated at 2.0. Baseline is 1.3-1.4 Troponin is negative. Liver enzymes are not elevated. Chest x-ray: No acute process. EKG: Ectopic atrial tachycardia at a rate of 138 On admission she received Coreg and normal saline at 50 mL per hour and resumed her Eliquis as well as Cardizem drip Repeat creatinine today showed improvement of 2.0 down to 1.4 which is close to her baseline 03/24/2022 Patient is seen and evaluated in room at bedside; denies any complaint of chest pain or shortness of breath Patient has been maintained on anticoagulation and denies any hematochezia or melena. Cardizem drip has been discontinued and the metoprolol currently at Lopressor 25 twice a day. Blood pressures somewhat borderline 90s over 60s however denies any lightheadedness or dizziness. Previous creatinine had improved. Remains tachycardic with heart rates in the 100-110s. Plans for ablation on Saturday Objective - Vital Signs Vital signs: Vital Signs Temp 97.4 F L 03/24/22 07:00 Pulse 97 03/24/22 08:00 Resp 18 03/24/22 08:00 BP 92/60 03/24/22 07:00 Pulse Ox 95 03/24/22 07:00 FiO2 Intake & Output 03/23/22 03/24/22 03/24/22 18:59 06:59 18:59 Intake Total 356 118 Balance 356 118 Intake: Oral 356 118 Other: Voiding Method Toilet Toilet Toilet # Voids 3 2 - Exam GENERAL: The patient is alert and oriented x3, not in any acute distress. Well developed, well nourished. HEENT: Pupils are round and equally reacting to light. EOMI. No scleral icterus. No conjunctival pallor. Normocephalic, atraumatic. No pharyngeal erythema. No thyromegaly. CARDIOVASCULAR: S1 and S2 present. No murmurs, rubs, or gallops. PULMONARY: Chest is clear to auscultation, no wheezing or crackles. ABDOMEN: Soft, nontender, nondistended, normoactive bowel sounds. No palpable organomegaly. MUSCULOSKELETAL: No joint swelling or deformity. EXTREMITIES: No cyanosis, clubbing, or pedal edema. NEUROLOGICAL: Gross neurological examination did not reveal any focal deficits. SKIN: No rashes. no petechiae. - Labs CBC & Chem 7: 03/21/22 18:33 03/22/22 07:27 Labs: Abnormal Lab Results - Last 24 Hours (Table) 03/23/22 03/23/22 03/24/22 Range/Units 16:57 20:13 07:00 POC Glucose (mg/dL) 180 H 273 H 178 H (70-110) mg/dL 03/24/22 Range/Units 11:51 POC Glucose (mg/dL) 270 H (70-110) mg/dL Assessment and Plan Assessment: A. fib and RVR, patient is on Eliquis Acute kidney injury, improved Chronic kidney disease, stage III Diabetes mellitus Hypertension Hypothyroidism Plan: This is a pleasant 71 years old female who presents with A. fib and RVR Continue with Cardizem drip and restarted medication when appropriate, continue with Coreg, we would recommend to switch her beta paz to metoprolol however we will defer this management to cardiology team Telemetry monitoring Cardiology consult Continue with insulin sliding scale, and jardiance Check proBNP, check TSH Labs and medication were reviewed.. Continue same treatment. Continue with symptomatic treatment. Resume home medication. Monitor lytes and vitals. DVT and GI prophylaxis. Further recommendations depends on the clinical course of the patient DVT prophylaxis: Eliquis GI Prophylaxis: Pepcid PT/OT: Pending Prognosis is guarded
[2022-03-24 20:42] LABS: Glucose,Whole Blood 277 mg/dL (70-110)
[2022-03-25] MEDS: SODIUM CHLORIDE 0.9% 1,000 ML IV SCH ×3 (01:27→20:53)
[2022-03-25] MEDS: LEVOTHYROXINE 75 MCG TAB PO SCH (06:11)
[2022-03-25 07:19] LABS: Glucose,Whole Blood 214 mg/dL (70-110)
[2022-03-25] MEDS: DILTIAZEM 125 MG in SODIUM CHLORIDE 0.9% 100 ML IV SCH ×2 (07:51→12:58)
[2022-03-25] MEDS: ATORVASTATIN 40 MG TAB PO SCH (08:52)
[2022-03-25] MEDS: APIXABAN 5 MG TAB PO SCH ×2 (08:52→20:52)
[2022-03-25] MEDS: METOPROLOL TARTRATE 25 MG TAB PO SCH ×2 (08:52→20:52)
[2022-03-25] MEDS: INSULIN ASPART (NovoLOG) 100 UNIT/ML VIAL SQ SCH ×4 (08:52→20:53)
[2022-03-25] MEDS: FUROSEMIDE 20 MG TAB PO SCH (08:52)
[2022-03-25] MEDS: Empagliflozin [Jardiance] PO SCH (08:53)
[2022-03-25 12:00] LABS: Glucose,Whole Blood 181 mg/dL (70-110)
--- NOTE | 2022-03-25 16:10 | P.PN ---
Subjective HISTORY OF PRESENTING ILLNESS Atrial tachycardia This is a 71-year-old female patient with known history of paroxysmal atrial fibrillation who underwent ablation recently and also known history of atrial tachycardia who was admitted to the hospital with increasing shortness of breath and she was found to be tachycardic. She had similar admission a few days ago. She scheduled to undergo atrial tachycardia ablation in the next few weeks. She was seen this morning. Yesterday we started the patient on metoprolol succinate. Her heart rate seems to be somewhat improved and clinically she seems to be better. She is not in overt congestive heart failure. She was on Aldactone and I'm going to stop it because her pressure has been on the low side. At this point the patient is scheduled to have the ablation this coming Saturday. Continue oral anticoagulation for now 03/24 Patient has been maintained on anticoagulation and denies any hematochezia or melena. Cardizem drip has been discontinued and the metoprolol currently at Lopressor 25 twice a day. Blood pressures somewhat borderline 90s over 60s however denies any lightheadedness or dizziness. Previous creatinine had improved. Remains tachycardic with heart rates in the 100-110s. 03/25 Patient without any further complaints. Denies any chest pain or pressure. No shortness breath. Awaiting ablation tomorrow. PHYSICAL EXAMINATION Vital signs reviewed. CONSTITUTIONAL: No apparent distress. HEENT: Head is normocephalic. Pupils are equal, round. Sclerae anicteric. Mucous membranes of the mouth are moist. No JVD. No carotid bruit. CHEST EXAMINATION: Lungs are clear to auscultation. No chest wall tenderness is noted on palpation or with deep breathing. HEART EXAMINATION: Tachycardic rate and rhythm. S1, S2 heard. No murmurs, gallops or rub. ABDOMEN: Soft, nontender. Positive bowel sounds. EXTREMITIES: 2+ peripheral pulses, no lower extremity edema and no calf ten derness. NEUROLOGIC EXAMINATION: Patient is awake, alert and oriented x3. Assessment #1 atrial tachycardia with uncontrolled heart rate #2 marginally low blood pressure #3 history of paroxysmal atrial fibrillation #4 multiple comorbid conditions including diabetes and hypertension and dyslipidemia and obesity and smoking Plan Hold anticoagulation for tomorrow. Await ablation tomorrow. Objective - Vital Signs Vital signs: Vital Signs Temp 97.5 F L 03/25/22 14:00 Pulse 100 03/25/22 14:00 Resp 16 03/25/22 14:00 BP 100/61 03/25/22 14:00 Pulse Ox 94 L 03/25/22 14:00 FiO2 Intake & Output 03/24/22 03/25/22 03/25/22 18:59 06:59 18:59 Intake Total 358 1000 Balance 358 1000 Intake: Oral 358 1000 Other: Voiding Method Toilet Toilet # Voids 4 5 # Bowel Movements 2 1 - Labs CBC & Chem 7: 03/21/22 18:33 03/22/22 07:27 Labs: Abnormal Lab Results - Last 24 Hours (Table) 03/24/22 03/24/22 03/25/22 Range/Units 17:05 20:41 07:17 POC Glucose (mg/dL) 206 H 277 H 214 H (70-110) mg/dL 03/25/22 Range/Units 11:57 POC Glucose (mg/dL) 181 H (70-110) mg/dL
[2022-03-25 17:12] LABS: Glucose,Whole Blood 204 mg/dL (70-110)
--- NOTE | 2022-03-25 17:45 | P.PN ---
Subjective Progress Note Date: 03/25/22 Principal diagnosis: Persistent A. fib and RVR, patient is on Eliquis Acute kidney injury 71 years old female with past medical history of atrial fibrillation on Eliquis status post ablation, hypothyroidism, hypertension, diabetes mellitus Patient presents because of palpitation. Patient reports some palpitation with heart rate around 140 last Saturday about 2 days ago, she was improved and sent home and felt better, however next day she was started having shortness of breath again similar to first time also associated with palpitation and when she came into the hospital her heart rate was still in 140 as she states. Currently she denies chest pain, no dizziness, no shortness of breath which is resolved now. No abdominal pain or vomiting or diarrhea. No urinary complaints or dysuria. No fever. She quit smoking about 1 year ago, no alcohol or illicit drugs. She states she was on Ceftin for UTI However repeat urinalysis is not suspicious of infection and because patient has no urinary symptoms therefore we going to hold on antibiotics and we'll keep monitoring On admission patient was tachycardic with heart rate 1:30 to 139. Patient is afebrile. Blood pressure 92/59, unremarkable cbc, inr, creatinine is elevated at 2.0. Baseline is 1.3-1.4 Troponin is negative. Liver enzymes are not elevated. Chest x-ray: No acute process. EKG: Ectopic atrial tachycardia at a rate of 138 On admission she received Coreg and normal saline at 50 mL per hour and resumed her Eliquis as well as Cardizem drip Repeat creatinine today showed improvement of 2.0 down to 1.4 which is close to her baseline 03/24/2022 Patient is seen and evaluated in room at bedside; denies any complaint of chest pain or shortness of breath Patient has been maintained on anticoagulation and denies any hematochezia or melena. Cardizem drip has been discontinued and the metoprolol currently at Lopressor 25 twice a day. Blood pressures somewhat borderline 90s over 60s however denies any lightheadedness or dizziness. Previous creatinine had improved. Remains tachycardic with heart rates in the 100-110s. Plans for ablation on Saturday03/25/2022 Patient is seen and evaluated resting comfortably in bed; reports shortness of breath when ambulating to bathroom; no complaint of chest pain Vital signs are reviewed and remained stable Cardiology on board for atrial tachycardia/paroxysmal atrial fibrillation with uncontrolled heart rate; patient is scheduled for ablation tomorrow Objective - Vital Signs Vital signs: Vital Signs Temp 97.3 F L 03/25/22 08:00 Pulse 104 H 03/25/22 08:00 Resp 16 03/25/22 08:00 BP 90/61 03/25/22 08:00 Pulse Ox 96 03/25/22 08:00 FiO2 Intake & Output 03/24/22 03/25/22 03/25/22 18:59 06:59 18:59 Intake Total 358 1000 Balance 358 1000 Intake: Oral 358 1000 Other: Voiding Method Toilet Toilet # Voids 4 # Bowel Movements 2 - Exam GENERAL: The patient is alert and oriented x3, not in any acute distress. Well developed, well nourished. HEENT: Pupils are round and equally reacting to light. EOMI. No scleral icterus. No conjunctival pallor. Normocephalic, atraumatic. No pharyngeal erythema. No thyromegaly. CARDIOVASCULAR: S1 and S2 present. No murmurs, rubs, or gallops. PULMONARY: Chest is clear to auscultation, no wheezing or crackles. ABDOMEN: Soft, nontender, nondistended, normoactive bowel sounds. No palpable organomegaly. MUSCULOSKELETAL: No joint swelling or deformity. EXTREMITIES: No cyanosis, clubbing, or pedal edema. NEUROLOGICAL: Gross neurological examination did not reveal any focal deficits. SKIN: No rashes. no petechiae. - Labs CBC & Chem 7: 03/21/22 18:33 03/22/22 07:27 Labs: Abnormal Lab Results - Last 24 Hours (Table) 03/24/22 03/24/22 03/24/22 Range/Units 11:51 17:05 20:41 POC Glucose (mg/dL) 270 H 206 H 277 H (70-110) mg/dL 03/25/22 Range/Units 07:17 POC Glucose (mg/dL) 214 H (70-110) mg/dL Assessment and Plan Assessment: A. fib and RVR, patient is on Eliquis Acute kidney injury, improved Chronic kidney disease, stage III Diabetes mellitus Hypertension Hypothyroidism Plan: This is a pleasant 71 years old female who presents with A. fib and RVR Continue with Cardizem drip and restarted medication when appropriate, continue with Coreg, we would recommend to switch her beta paz to metoprolol however we will defer this management to cardiology team Telemetry monitoring Cardiology consult Continue with insulin sliding scale, and jardiance Check proBNP, check TSH Labs and medication were reviewed.. Continue same treatment. Continue with symptomatic treatment. Resume home medication. Monitor lytes and vitals. DVT and GI prophylaxis. Further recommendations depends on the clinical course of the patient DVT prophylaxis: Eliquis GI Prophylaxis: Pepcid PT/OT: Pending Prognosis is guarded
[2022-03-25 20:44] LABS: Glucose,Whole Blood 208 mg/dL (70-110)
[2022-03-26] MEDS: LEVOTHYROXINE 75 MCG TAB PO SCH (06:17)
[2022-03-26 07:20] LABS: Glucose,Whole Blood 179 mg/dL (70-110)
[2022-03-26] MEDS: ATORVASTATIN 40 MG TAB PO SCH (07:35)
[2022-03-26] MEDS: INSULIN ASPART (NovoLOG) 100 UNIT/ML VIAL SQ SCH ×4 (07:35→22:33)
[2022-03-26] MEDS: APIXABAN 5 MG TAB PO SCH ×2 (07:35→22:17)
[2022-03-26] MEDS: FUROSEMIDE 20 MG TAB PO SCH (07:36)
[2022-03-26] MEDS: METOPROLOL TARTRATE 25 MG TAB PO SCH ×2 (07:36→22:17)
[2022-03-26] MEDS: Empagliflozin [Jardiance] PO SCH (07:36)
[2022-03-26 09:20] LABS: Basophils # (A) 0.06 X 10*3/uL (0.00-0.10); Basophils % (A) 0.8 %; Eosinophils # (A) 0.21 X 10*3/uL (0.04-0.35); Eosinophils % (A) 2.7 %; HCT 43.6 % (37.2-46.3); Immature Grans, Automated 0.5 %; Lymphocytes # (A) 2.27 X 10*3/uL (0.90-5.00); Lymphocytes % (A) 29.1 %; MCH 30.6 pg (27.0-32.0); MCHC 32.1 g/dL (32.0-37.0); MCV 95.4 fL (80.0-97.0); Mean Platelet Volume 10.3 fL (9.5-12.2); Monocytes # (A) 0.65 X 10*3/uL (0.20-1.00); Monocytes % (A) 8.3 %; NRBC Per 100 WBC 0 /100 WBCS (0.0-0.0); Neutrophils # (A) 4.56 X 10*3/uL (1.80-7.70); Neutrophils % (A) 58.6 %; Platelet Count 171 X 10*3/uL (140-440); RBC 4.57 X 10*6/uL (4.10-5.20); RDW 16.4 % (11.5-14.5); WBC 7.79 X 10*3/uL (4.50-10.00)
--- NOTE | 2022-03-26 09:20 | P.PN ---
Subjective The patient is a 71-year-old female with a known history of atrial fibrillation status post ablation 08/2021, history of hypertension, diabetes and a prior history of smoking one pack a day, she stopped about a year ago. She follows with Dr. Galvan. She presents with increasing shortness of breath and she was found to be tachycardic. She had similar admission a few days ago. She scheduled to undergo atrial tachycardia ablation in the next few weeks. 03/16/2022 Echocardiogram revealed EF 50%. Patient seen and examined at bedside, no acute distress. She continues to feel palpitations at times. She does not have any shortness of breath, chest pain, lightheadedness or dizziness. She currently in maintained on Eliquis 5mg BID, atorvastatin 5mg daily, Jardiance, Metoprolol tartrate 25mg BID PHYSICAL EXAMINATION GENERAL: Well-appearing, well-nourished and in no acute distress. NECK: Supple without JVD or thyromegaly. LUNGS: Breath sounds clear to auscultation bilaterally. Respiration equal and unlabored. No wheezes, rales or rhonchi. HEART: Irregular rate and rhythm without murmurs, rubs or gallops. S1 and S2 heard. EXTREMITIES: Normal range of motion, no edema. No clubbing or cyanosis. Peripheral pulses intact. ASSESSMENT Atrial tachycardia Paroxysmal atrial fibrillation on Eliquis Prior history of cardiomyopathy, with improved EF History of type 2 diabetes Prior history of smoking History of hypertension Dyslipidemia PLAN Plan for ablation with Dr. Galvan today. Further recommendations to follow Nurse practitioner note has been reviewed by physician. Signing provider agrees with the documented findings, assessment, and plan of care. Objective - Vital Signs Vital signs: Vital Signs Temp 97.4 F L 03/26/22 07:40 Pulse 105 H 03/26/22 07:40 Resp 16 03/26/22 07:40 BP 105/74 03/26/22 07:40 Pulse Ox 96 03/26/22 08:09 FiO2 Intake & Output 03/25/22 03/26/22 03/26/22 18:59 06:59 18:59 Intake Total 118 Balance 118 Intake: Oral 118 Other: Voiding Method Toilet Toilet # Voids 5 1 # Bowel Movements 1 - Labs CBC & Chem 7: 03/21/22 18:33 03/22/22 07:27 Labs: Abnormal Lab Results - Last 24 Hours (Table) 03/25/22 03/25/22 03/25/22 Range/Units 11:57 17:08 20:42 POC Glucose (mg/dL) 181 H 204 H 208 H (70-110) mg/dL 03/26/22 Range/Units 07:18 POC Glucose (mg/dL) 179 H (70-110) mg/dL
[2022-03-26 09:42] LABS: African American GFR (CKD) 47.7 (60.0-200.0); Anion Gap 14.4 mmol/L (10.00-18.00); BUN/Creat Ratio 14.66 Ratio (12.00-20.00); Blood Urea Nitrogen 19.2 mg/dL (9.0-27.0); Calcium 9.4 mg/dL (8.7-10.3); Carbon Dioxide 23.2 mmol/L (20.0-27.5); Non-African American GFR(CKD) 41.2 (60.0-200.0); Potassium 4.3 mmol/L (3.5-5.5)
[2022-03-26 12:08] LABS: Glucose,Whole Blood 178 mg/dL (70-110)
--- NOTE | 2022-03-26 14:58 | P.PN ---
Subjective Progress Note Date: 03/26/22 Patient is evaluated today resting in bed plan is for atrial fibrillation ablation early afternoon with Dr Galvan. Currently denying chest pain, she does have shortness of breath when ambulating secondary to elevated heart rate. Labs today showing white count 7.79, Hgb 14.0, sodium 137, potassium 4.3, blood glucose in the 170s. A1C is found to be 8.9. Heart rate today has been in the low 100s, no fever, blood pressure 105/74, 96% room air. Review of Systems Constitutional: Denied any fatigue denied any fever. Cardio vascular: denied any chest pain, palpitations Gastrointestinal: denied any nausea, vomiting, diarrhea Pulmonary: Reports shortness of breath with activity, no cough. Neurologic denied any new focal deficits All inpatient medications were reviewed and appropriate changes in these medications as dictated in the interval history and assessment and plan. PHYSICAL EXAMINATION: GENERAL: The patient is alert and oriented x3, not in any acute distress. Well developed, well nourished. HEENT: Pupils are round and equally reacting to light. EOMI. No scleral icterus. No conjunctival pallor. Normocephalic, atraumatic. No pharyngeal erythema. No thyromegaly. CARDIOVASCULAR: S1 and S2 present. No murmurs, rubs, or gallops. PULMONARY: Chest is clear to auscultation, no wheezing or crackles. ABDOMEN: Soft, nontender, nondistended, normoactive bowel sounds. No palpable organomegaly. MUSCULOSKELETAL: No joint swelling or deformity. EXTREMITIES: No cyanosis, clubbing, or pedal edema. NEUROLOGICAL: Gross neurological examination did not reveal any focal deficits. SKIN: No rashes. Assessment and Plan Assessment A. fib and RVR, patient is on Eliquis Acute kidney injury, improved Chronic kidney disease, stage III Diabetes mellitus with hyperglycemia, A1C 8.9 Hypertension Hypothyroidism DVT prophylaxis: Eliquis GI Prophylaxis: Pepcid Full Code Plan This is a pleasant 71 years old female who presents with A. fib and RVR Plan is to undergo atrial fibrillation ablation today Telemetry monitoring Cardiology consult Continue with insulin sliding scale, and jardiance Discharge when cleared by cardiology The impression and plan of care has been dictated by Aleisha Sherman, Nurse Practitioner as directed. Dr. Magdalena MD I have performed a history and physical examination and medical decision making of this patient, discussed the same with the dictator, and agree with the dictators assessment and plan as written, documented as a scribe. Based on total visit time, I have performed more than 50% of this visit. Objective - Vital Signs Vital signs: Vital Signs Temp 97.4 F L 03/26/22 07:40 Pulse 105 H 03/26/22 07:40 Resp 16 03/26/22 07:40 BP 105/74 03/26/22 07:40 Pulse Ox 96 03/26/22 08:09 FiO2 Intake & Output 03/25/22 03/26/22 03/26/22 18:59 06:59 18:59 Intake Total 118 Balance 118 Intake: Oral 118 Other: Voiding Method Toilet Toilet # Voids 5 1 # Bowel Movements 1 - Labs CBC & Chem 7: 03/26/22 05:00 03/26/22 05:00 Labs: Abnormal Lab Results - Last 24 Hours (Table) 03/25/22 03/25/22 03/25/22 Range/Units 11:57 17:08 20:42 RDW (11.5-14.5) % Est GFR (CKD-EPI)AfAm (60.0-200.0) Est GFR (CKD-EPI)NonAf (60.0-200.0) Glucose (70-110) mg/dL POC Glucose (mg/dL) 181 H 204 H 208 H (70-110) mg/dL 03/26/22 03/26/22 03/26/22 Range/Units 05:00 05:00 07:18 RDW 16.4 H (11.5-14.5) % Est GFR (CKD-EPI)AfAm 47.7 L (60.0-200.0) Est GFR (CKD-EPI)NonAf 41.2 L (60.0-200.0) Glucose 172 H (70-110) mg/dL POC Glucose (mg/dL) 179 H (70-110) mg/dL Assessment and Plan Time with Patient: Less than 30
[2022-03-26] MEDS ORDERED: MIDAZOLAM 2 MG/2 ML VIAL ONE (15:10)
[2022-03-26] MEDS ORDERED: ceFAZolin 1,000 MG VIAL ONE (15:10)
[2022-03-26] MEDS ORDERED: PROPOFOL 10 MG/ML 20 ML VIAL IV ONE (15:10)
[2022-03-26] MEDS ORDERED: HEPARIN SODIUM,PORCINE 10,000 UNIT/ML 1 ML VIAL ONE (15:10)
[2022-03-26] MEDS ORDERED: FUROSEMIDE 10 MG/ML 2 ML VIAL ONE (15:10)
[2022-03-26] MEDS ORDERED: SUCCINYLCHOLINE CHLORIDE 100 MG/5 ML SYR IV ONE (15:10)
[2022-03-26] MEDS ORDERED: PROTAMINE SULFATE 10 MG/ML 5 ML VIAL IV ONE (15:10)
[2022-03-26] MEDS ORDERED: fentaNYL (PF) 50 MCG/ML 2 ML AMP ONE (15:10)
[2022-03-26] MEDS ORDERED: PHENYLEPHRINE-0.9% NACL SYG 1,000 MCG/10 ML SYRINGE ONE (15:10)
[2022-03-26] MEDS ORDERED: LIDOCAINE 2% INJ 20 MG/ML (2 ML VIAL) ONE (15:10)
[2022-03-26] MEDS ORDERED: IV FLUID CONTINUATION 1,000 ML IV ONE (15:13)
[2022-03-26] MEDS ORDERED: LIDOCAINE 1% INJ 10MG/ML (5 ML VIAL-PF) SQ ONE (16:00)
[2022-03-26] MEDS ORDERED: LIDOCAINE 1% INJ 10MG/ML (30 ML VIAL-PF) SQ ONE (16:00)
[2022-03-26] MEDS ORDERED: HEPARIN SODIUM (1,000 UNIT/ML) 1,000 UNIT in SODIUM CHLORIDE 0.9% 1,000 ML IRRIGATION ONE (16:14)
[2022-03-26] MEDS ORDERED: HEPARIN SOD,PORK IN 0.45% NACL 25,000 UNIT in 0.45% NACL 1 250ML.BAG IV ONE (16:36)
--- NOTE | 2022-03-26 17:54 | P.PN ---
Progress Note - Text Inflammation on the dorsum of the left hand secondary to an IV line IV cefazolin given during the Procedure Continue IV Cefazolin For 24 Hours and Then by mouth Keflex thereafter
--- NOTE | 2022-03-26 18:18 | P.EPPROC ---
- EP Procedure Note Electrophysiology Procedure Note: Diagnosis Sustained atrial tachycardia with RVR, symptomatic Patient was admitted from the ER for this Diagnosis Focal atrial tachycardia ablation posterior septum just posterior to the fossa ovalis area Successful termination with the first lesion at the earliest site which was 34 ms earlier than the onset of the P wave Ablation in the left atrial roof Details Patient was brought to the EP lab in a fasting state. Written informed consent was obtained prior to the procedure. The right groin was prepped and draped as a protocol and 3 venous sheaths were placed in the right femoral vein Via this diagnostic mapping and ablation cath was replaced in the right heart Intracardiac echo cath was placed No left atrial appendage thrombus CS catheter demonstrated concentric activation cycle length to 92 ms P waves biphasic with an initial upright followed by a a negative deflection in lead V1 Upright in the inferior leads Mapping of the right atrium was performed. The Pentaray catheter Subsequently left leg transseptal catheterization was performed Intracardiac echocardiography was used to cross the interatrial septum and its midpoint Pentaray catheter was used to mapped the left atrium The earliest site of activation was found in the posterior septum just posterior to the fossa ovalis and slightly above it RF ablation here result in termination of the tachycardia [place] mapping also revealed In the roof line Linear ablation was performed along the left atrial roof anteriorly A complete line of block was made Following that intracardiac echo revealed no evidence for pericardial effusion Patient tolerated the procedure well without any acute complications Sinus cycle length 1056 ms AH interval 99 ms and HV interval 33 ms QRS 95 ms and QT interval 493 ms MN interval 131 ms RA pressure 17/8/12 LA pressure 21/9/15 Voltage mapping also revealed the pulmonary veins were completely isolated and were quiescent All sheaths were removed Vascade closure device was used Patient tolerated the procedure well without any acute complications
[2022-03-26] MEDS ORDERED: ACETAMINOPHEN IV (For NPO) 1,000 MG in EMPTY BAG 1 BAG IVPB ONE (18:22)
[2022-03-26] MEDS ORDERED: ACETAMINOPHEN TAB 325 MG TAB PO PRN (18:22)
[2022-03-26 18:24] LABS: Glucose,Whole Blood 168 mg/dL (70-110)
[2022-03-26] MEDS: SODIUM CHLORIDE 0.9% 1,000 ML IV SCH ×2 (19:09→20:06)
[2022-03-26 20:08] VITALS: RESP 18
[2022-03-26 22:23] LABS: Glucose,Whole Blood 176 mg/dL (70-110)
[2022-03-27] MEDS: LEVOTHYROXINE 75 MCG TAB PO SCH (06:16)
[2022-03-27 06:47] LABS: Glucose,Whole Blood 140 mg/dL (70-110)
[2022-03-27 07:21] VITALS: BP 131/67; PULSE 63; TEMP 97.6
[2022-03-27] MEDS: INSULIN ASPART (NovoLOG) 100 UNIT/ML VIAL SQ SCH (07:24)
[2022-03-27] MEDS: ATORVASTATIN 40 MG TAB PO SCH (07:25)
[2022-03-27] MEDS: METOPROLOL TARTRATE 25 MG TAB PO SCH (07:25)
[2022-03-27] MEDS: APIXABAN 5 MG TAB PO SCH (07:25)
[2022-03-27] MEDS: FUROSEMIDE 20 MG TAB PO SCH (07:25)
[2022-03-27] MEDS: Empagliflozin [Jardiance] PO SCH (07:25)
[2022-03-27] MEDS ORDERED: CEPHALEXIN 500 MG CAP PO SCH (10:30)
--- NOTE | 2022-03-27 10:54 | P.PN ---
Subjective The patient is a 71-year-old female with a known history of atrial fibrillation status post ablation 08/2021, history of hypertension, diabetes and a prior history of smoking one pack a day, she stopped about a year ago. She follows with Dr. Galvan. She presents with increasing shortness of breath and she was found to be tachycardic. She had similar admission a few days ago. She was scheduled to undergo atrial tachycardia ablation in the next few weeks. 03/16/2022 Echocardiogram revealed EF 50%. Yesterday on 03/26, patient underwent ablation with Dr. Galvan. 03/27/2022 Patient seen and examined at bedside, no acute distress. She feels well. No complaints. She is getting up but has not ambulated much. She does not have any palpitations, shortness of breath, chest pain, lightheadedness or dizziness. She currently in maintained on Eliquis 5mg BID, atorvastatin 5mg daily, Jardiance, Metoprolol tartrate 25mg BID PHYSICAL EXAMINATION GENERAL: Well-appearing, well-nourished and in no acute distress. NECK: Supple without JVD or thyromegaly. LUNGS: Breath sounds clear to auscultation bilaterally. Respiration equal and unlabored. No wheezes, rales or rhonchi. HEART: Irregular rate and rhythm without murmurs, rubs or gallops. S1 and S2 heard. EXTREMITIES: Normal range of motion, no edema. No clubbing or cyanosis. Peripheral pulses intact. SKIN: Right groin, clean dry intact no hematoma 2+ peripheral pulses ASSESSMENT Atrial tachycardia Status post ablation on 03/26/2022 Paroxysmal atrial fibrillation on Eliquis Prior history of cardiomyopathy, with improved EF History of type 2 diabetes Prior history of smoking History of hypertension Dyslipidemia PLAN From a cardiology perspective, patient is stable to be discharged home. Keflex started per Dr. Galvan post op Continue Eliquis 5mg BID, atorvastatin 5mg daily, Jardiance, Metoprolol tartrate 25mg BID Follow up outpatient with Dr. Galvan, patient with follow up on 04/10/2022 scheduled. Nurse practitioner note has been reviewed by physician. Signing provider agrees with the documented findings, assessment, and plan of care. Objective - Vital Signs Vital signs: Vital Signs Temp 97.6 F 03/27/22 07:20 Pulse 63 03/27/22 07:20 Resp 18 03/27/22 07:20 BP 131/67 03/27/22 07:20 Pulse Ox 96 03/27/22 07:20 FiO2 Intake & Output 03/26/22 03/27/22 03/27/22 18:59 06:59 18:59 Intake Total 1057 118 Output Total 250 1100 Balance 807 -1100 118 Intake: IV 1057 Oral 118 Output: Urine 250 1100 Other: Voiding Method Toilet Indwelling Catheter - Labs CBC & Chem 7: 03/26/22 05:00 03/26/22 05:00 Labs: Abnormal Lab Results - Last 24 Hours (Table) 03/26/22 03/26/22 03/26/22 Range/Units 12:06 18:22 22:21 POC Glucose (mg/dL) 178 H 168 H 176 H (70-110) mg/dL 03/27/22 Range/Units 06:45 POC Glucose (mg/dL) 140 H (70-110) mg/dL
--- NOTE | 2022-03-28 22:33 | P.DS ---
Providers Date of admission: 03/23/22 09:14 Attending physician: Riccardo Jennings MD Consults: 03/21/22 19:27 Consult Physician Routine Consulting Provider: Mane Galvan Consult Reason/Comments: Atrial Tachycardia Do you want consulting provider notified?: Yes Primary care physician: Josselin Guerrero [facility] Course: Final Diagnosis Atrial tachycardia status post ablation on 03/26/22 paroxysmal A. fib patient is on Eliquis Acute kidney injury, improved Chronic kidney disease, stage III Diabetes mellitus with hyperglycemia, A1C 8.9 Hypertension Dyslipidemia Hypothyroidism Full Code Discharge Disposition Patient is stable for discharge. She is status post atrial tachycardia ablation and is maintained on eliquis. Recommend follow up with PCP in 2-3 days. Discuss diabetic medications, A1C 8.9. She has cardiology follow up on April 11. Hospital Course This is a pleasant 71 year old female with medical history significant for atrial fibrillation on eliquis status post ablation in the past, chronic kidney disease stage 3, diabetes mellitus, hypertension, hypothyroidism. Patient presents with shortness of breath worse with exertion associated with chest palpitations. She was also evaluated last saturday for palpitations and heart rate of 140 and had improved and was sent home. She presents with similar symptoms and reports heart rate up in the 140s. She denies chest pain, no dizziness, and no shortness of breath on initial examination. She denies fever, no dysuria, no recent infection. She was recently treated with ceftin outpatient UTI. Patient quit smoking 1 year ago and reports no alcohol or illicit drug use. Patient has a history of atrial fibrillation and states that she is pending being scheduled for an a. fib ablation outpatient. She also had an echocardiogram March 16 of this year showing an EF of 50%. She follows with Dr Galvan in the cardiology office. Diagnostics on admission show; Blood pressure 92/59, unremarkable cbc, inr, Creatinine is elevated at 2.0. Baseline is 1.3-1.4. Repeat creatinine has improved to 1.4 which is close to baseline. Troponin is negative. Liver enzymes are not elevated. Chest x-ray: No acute process. EKG: Ectopic atrial tachycardia at a rate of 138 On admission she received Coreg and normal saline at 50 mL per hour and resumed her Eliquis as well as Cardizem drip. Repeat urinalysis was completed which is not suspicious for infection and patient will be monitored off antibiotics as she is also asymptomatic. 03/27/22 Patient underwent atrial tachycardia ablation on 03/26/22 and has been maintaining normal sinus rhythm. There was also concern for possible redness of IV site to left hand and patient received 2 dose of IV cefazolin and will discharge on a short course of keflex empirically. Patient will be discharged on eliquis, metoprolol, atorvastatin. A1C found to be 8.9. Patient was recommended for sliding scale novolog. She states she was recently started on jardiance and wants to follow up with her primary care to discuss changes to diabetic medications. Patient is educated and given information on diabetic diet. Discussed insulin and patient will follow up with primary care. Continue jardiance on discharge. She has follow up with cardiology on April 10. Patient will also see PCP in 2-3 days. She is denying chest pain, no shortness of breath. No palpitations. She has been afebrile. No dizziness, lightheadedness. Puncture sites are intact. Lungs are clear, S1 S2 auscultated regular rate and rhythm, abdomen is soft and nontender, focal neurological exam is negative. Most recent labs show unremarkable blood count with exception of elevated RDW, Electrolyte panel shows glucose of 140, creatinine is now 1.3. Patient is covid negative. Heart rate 63, blood pressue 131/67, 96% room air. Patient will be discharge today. Please see medication reconciliation for a list of current medication. Thank you for allowing us to participate in the care of this patient. The impression and plan of care has been dictated by Aleisha Sherman, Nurse Practitioner as directed. Dr. Magdalena MD I have performed a history and physical examination and medical decision making of this patient, discussed the same with the dictator, and agree with the dictators assessment and plan as written, documented as a scribe. Based on total visit time, I have performed more than 50% of this visit. Patient Condition at Discharge: Stable Plan - Discharge Summary New Discharge Prescriptions: New Metoprolol Tartrate [Lopressor] 25 mg PO BID #60 tab Cephalexin [Keflex] 500 mg PO Q6HR 1 Days #4 cap Insulin Aspart [NovoLOG Flexpen] See Protocol SQ AC-TID #1 each Continue Apixaban [Eliquis] 5 mg PO BID #60 tab Empagliflozin [Jardiance] 10 mg PO DAILY Furosemide [Lasix] 20 mg PO DAILY Levothyroxine Sodium 150 mcg PO DAILY Mirabegron [Myrbetriq] 25 mg PO DAILY Atorvastatin [Lipitor] 40 mg PO DAILY 30 Days #30 tab Discontinued cefUROXime axetiL [Ceftin] 500 mg PO BID 5 Days #10 tab Spironolactone [Aldactone] 25 mg PO DAILY carvediloL [Coreg] 6.25 mg PO BID #60 tablet Discharge Medication List Apixaban [Eliquis] 5 mg PO BID #60 tab 02/13/21 [Rx] Levothyroxine Sodium 150 mcg PO DAILY 07/04/21 [History] Empagliflozin [Jardiance] 10 mg PO DAILY 03/15/22 [History] Mirabegron [Myrbetriq] 25 mg PO DAILY 03/15/22 [History] Atorvastatin [Lipitor] 40 mg PO DAILY 30 Days #30 tab 03/16/22 [Rx] Furosemide [Lasix] 20 mg PO DAILY 03/21/22 [History] Cephalexin [Keflex] 500 mg PO Q6HR 1 Days #4 cap 03/27/22 [Rx] Insulin Aspart [NovoLOG Flexpen] See Protocol SQ AC-TID #1 each 03/27/22 [Rx] Metoprolol Tartrate [Lopressor] 25 mg PO BID #60 tab 03/27/22 [Rx] Follow up Appointment(s)/Referral(s): Mane Galvan MD [STAFF PHYSICIAN] - 04/10/22 9:00 am Josselin Guerrero MD [Primary Care Provider] - 1-2 days Patient Instructions/Handouts: Diabetes and Nutrition (DC), Electrophysiology Study (DC) Activity/Diet/Wound Care/Special Instructions: Post EP study - Ablation instructions 1. Keep access sites dry for 2 days. 2. No heavy lifting or straining for 2 days. 3. Avoid bending the hips repeatedly for 2 days. 4. You may go up and down stairs slowly Call if the following is noted 1. Bleeding, increasing swelling or pain at the access sites. 2. Increasing chest discomfort, especially upon taking a deep breath. 3. Increasing shortness of breath, at rest or with exertion. 4. Undue cough / phlegm 5. Difficulty or pain while swallowing. 6. Pain or change in color in the extremities. 7. Fever, chills, rigors. 8. Increasing headache or neurologic symptoms. 9. Dizziness, fainting, palpitations Continue ELIQUIS Check blood sugar before meals Cover with insulin using novolog flexpen as needed using the provided scale Cleanse injection site with alcohol prior to injection Use new needle with each injection Rotate sites including; back of arm, lower abdomen 2 in out from belly button rotating sites, outer thigh Blood sugar 131 to 165 1 unit Blood sugar 166 to 205 2 units Blood sugar 206 to 245 3 units Blood sugar 246 to 285 4 units Blood sugar 286 to 325 5 units Blood sugar 326 to 365 6 units Blood sugar 366 to 400 7 units Discharge Disposition: HOME SELF-CARE
== END 2022-03-27 12:18 | disposition home or self-care (01) | DRG 274 ==
LOC: EC 17:47 → 6NMEDSUR 19:38 → OBSVTOIN 03-23 09:14
PROVIDERS: ADMIT Internal Medicine; ATTEND Internal Medicine
PROC: 4A0234Z Measurement of Cardiac Electrical Activity, Percutaneous Approach (ICD-10-PCS; principal; 2022-03-26 14:15)
PROC: 4A023FZ Measurement of Cardiac Rhythm, Percutaneous Approach (ICD-10-PCS; principal; 2022-03-26 14:15)
PROC: 02K83ZZ Map Conduction Mechanism, Percutaneous Approach (ICD-10-PCS; principal; 2022-03-26 14:15)
PROC: 02583ZZ Destruction of Conduction Mechanism, Percutaneous Approach (ICD-10-PCS; principal; 2022-03-26 14:15)
DX: I47.1 Supraventricular tachycardia (principal); N17.9 Acute kidney failure, unspecified; I42.9 Cardiomyopathy, unspecified; E03.9 Hypothyroidism, unspecified; E11.22 Type 2 diabetes mellitus with diabetic chronic kidney disease; E11.65 Type 2 diabetes mellitus with hyperglycemia; E66.9 Obesity, unspecified; T80.89XA Other complications following infusion, transfusion and therapeutic injection, initial encounter; R22.32 Localized swelling, mass and lump, left upper limb; Z68.39 Body mass index [BMI] 39.0-39.9, adult; E78.5 Hyperlipidemia, unspecified; I12.9 Hypertensive chronic kidney disease with stage 1 through stage 4 chronic kidney disease, or unspecified chronic kidney disease; I48.19 Other persistent atrial fibrillation; N18.30 Chronic kidney disease, stage 3 unspecified; Z87.440 Personal history of urinary (tract) infections; Z20.822 Contact with and (suspected) exposure to COVID-19; Z79.01 Long term (current) use of anticoagulants; Z79.84 Long term (current) use of oral hypoglycemic drugs; Z79.890 Hormone replacement therapy; Z79.899 Other long term (current) drug therapy; Z82.5 Family history of asthma and other chronic lower respiratory diseases; Z87.891 Personal history of nicotine dependence
CPT/HCPCS: 36415; 71046; 80048; 80053; 81001; 83036; 83735; 84484; 85025; 85610; 85730; 87635; 93005; 93613; 93653; 93657; 93662; 94760; 96374; 99285

== ENCOUNTER → 2022-05-31 | Outpatient (CLI) | payer MEDICARE ==
--- NOTE | 2022-06-01 19:18 | MM ---
Reason for Exam: Screening (asymptomatic). Last mammogram was performed 2 year(s) and 2 month(s) ago. Patient History: Menarche at age 15. First Full-Term at age 33. Late child-bearing (after 30). Postmenopausal. 1976, Benign Core Biopsy on the right side. Risk Values: Neeru 5 year model risk: 2.6%. NCI Lifetime model risk: 7.4%. Prior Study Comparison: 01/04/2006 Left Diagnostic Mammogram, [facility]. 02/16/2010 Bilateral Screening Mammogram, [facility]. 04/06/2020 Bilateral Diagnostic Mammogram, [facility]. Tissue Density: There are scattered fibroglandular densities. Findings: Analyzed By CAD. There is no suspicious group of microcalcifications or new suspicious mass in either breast. Overall Assessment: Negative, BI-RAD 1 Management: Screening Mammogram of both breasts in 1 year. A clinical breast exam by your physician is recommended on an annual basis and results should be correlated with mammographic findings. Electronically signed and approved by: Massimo Dickinson DO
== END | disposition home or self-care (01) ==
LOC: RADMAMWWP 13:30
PROVIDERS: ATTEND Family Medicine
DX: Z12.31 Encounter for screening mammogram for malignant neoplasm of breast (principal); Z78.0 Asymptomatic menopausal state; Z98.890 Other specified postprocedural states
CPT/HCPCS: 77063; 77067

== ENCOUNTER → 2022-10-05 | Outpatient (CLI) | payer MEDICARE ==
--- NOTE | 2022-10-05 15:07 | CTL ---
EXAMINATION TYPE: CT Low Dose Lung DATE OF EXAM ORDERED: 10/05/2022 HISTORY: Personal tobacco use. Lung cancer screening CT DLP: 83.[address] CTDI: 2.4 mGy Automated exposure control for dose reduction was used. SCREENING VISIT: Baseline. COMPARISON: None available. TECHNIQUE: Low dose computed tomography scan was performed through the chest at 1 mm thick sections a nd reconstructed images in multiple planes at 1 mm and [address] DIAGNOSTIC QUALITY: Satisfactory FINDINGS: LUNG NODULES: None. Left upper lobe 1.[address] series 4 image 82. This nodule is relatively. Although may be pa rt solid. LUNGS: COPD: Severity: There is mild diffuse centrilobular emphysema. Fibrosis: Severity: None Lymph nodes: None. Other findings: There are some calcified granulomas the left lung. RIGHT PLEURAL SPACE: Effusion: None Calcification: None Thickening: None Pneumothorax: None LEFT PLEURAL SPACE: Effusion: None Calcification: None Thickening: None Pneumothorax: None HEART: Heart Size: Normal Coronary Calcification: Severe coronary artery calcifications are seen diffusely. There is also mild vascular calcification throughout the thoracic aorta without evidence of aneurysmal dilation. Pericardial Effusion: None OTHER FINDINGS: Upper abdomen: None Bony thorax: None Supraclavicular region: None Other: None IMPRESSION: 1. Solid or part solid nodule within the left upper lobe described above. 2. Severe coronary artery calcifications. CT LUNG RAD AND CT CHEST RECOMMENDATION: Lung-RADS category 4A. Follow-up in 3 months is recommended. A PET CT may also be performed at this time. S Modifier (other clinically significant findings): None.
== END | disposition home or self-care (01) ==
LOC: RADCTMAIN 12:24
PROVIDERS: ATTEND Family Medicine
DX: Z12.2 Encounter for screening for malignant neoplasm of respiratory organs (principal); I25.10 Atherosclerotic heart disease of native coronary artery without angina pectoris; R91.1 Solitary pulmonary nodule; Z87.891 Personal history of nicotine dependence
CPT/HCPCS: 71271

== ENCOUNTER 2022-11-29 13:14 | Day surgery (SDC) | payer MEDICARE ==
[2022-11-27 10:42] VITALS: BMI 40.7
[2022-11-29] MEDS ORDERED: SODIUM CHLORIDE 0.9% 1,000 ML IV ONE (13:25)
[2022-11-29 13:37] LABS: Glucose,Whole Blood 122 mg/dL (70-110)
[2022-11-29 13:59] LABS: Basophils # (A) 0.1 k/uL (0-0.2); Basophils % (A) 1 %; Eosinophils # (A) 0.3 k/uL (0-0.7); Eosinophils % (A) 2 %; HCT 43.4 % (34.0-46.0); HGB 14.5 gm/dL (11.4-16.0); Lymphocytes # (A) 2.5 k/uL (1.0-4.8); Lymphocytes % (A) 23 %; MCH 30.5 pg (25.0-35.0); MCHC 33.5 g/dL (31.0-37.0); Mean Platelet Volume 7.5; Monocytes # (A) 0.5 k/uL (0-1.0); Monocytes % (A) 4 %; Neutrophils # (A) 7.7 k/uL (1.3-7.7); Neutrophils % (A) 68 %; Platelet Count 202 k/uL (150-450); Poikilocytosis Slight; RBC 4.77 m/uL (3.80-5.40); WBC 11.2 k/uL (3.8-10.6)
[2022-11-29 14:14] LABS: Calcium 8.9 mg/dL (8.4-10.2); Potassium 4.9 mmol/L (3.5-5.1)
[2022-11-29] MEDS ORDERED: fentaNYL (PF) 50 MCG/ML 2 ML AMP ONE (15:08)
[2022-11-29] MEDS ORDERED: ROCURONIUM 10 MG/ML (5 ML VIAL) IV ONE (15:08)
[2022-11-29] MEDS ORDERED: HEPARIN SODIUM,PORCINE 5,000 UNIT/ML 1 ML VIAL ONE (15:08)
[2022-11-29] MEDS ORDERED: PHENYLEPHRINE-0.9% NACL SYG 1,000 MCG/10 ML SYRINGE ONE (15:08)
[2022-11-29] MEDS ORDERED: NEOSTIGMINE 1 MG/ML 10 ML VIAL ONE (15:08)
[2022-11-29] MEDS ORDERED: PROPOFOL 10 MG/ML 20 ML VIAL IV ONE (15:08)
[2022-11-29] MEDS ORDERED: LIDOCAINE 2% INJ 20 MG/ML (2 ML VIAL) ONE (15:08)
[2022-11-29] MEDS ORDERED: SUCCINYLCHOLINE CHLORIDE 200 MG/10 ML VIAL IV ONE (15:08)
[2022-11-29] MEDS ORDERED: GLYCOPYRROLATE 0.2 MG/ML 2 ML VIAL ONE (15:08)
[2022-11-29] MEDS ORDERED: FUROSEMIDE 10 MG/ML 2 ML VIAL ONE (15:08)
[2022-11-29] MEDS ORDERED: MIDAZOLAM 2 MG/2 ML VIAL ONE (15:08)
[2022-11-29] MEDS ORDERED: LIDOCAINE 1% INJ 10MG/ML (20 ML MDV) ONE (15:09)
[2022-11-29] MEDS ORDERED: HEPARIN SODIUM (1,000 UNIT/ML) 1,000 UNIT in SODIUM CHLORIDE 0.9% 1,000 ML IRRIGATION ONE (16:20)
[2022-11-29] MEDS ORDERED: LIDOCAINE 1% INJ 10MG/ML (20 ML MDV) SQ ONE (16:25)
[2022-11-29] MEDS ORDERED: HEPARIN SOD,PORK IN 0.45% NACL 25,000 UNIT in 0.45% NACL 1 250ML.BAG IV ONE (16:25)
[2022-11-29] MEDS ORDERED: LACTATED RINGERS 1,000 ML IV ONE (19:15)
[2022-11-29] MEDS ORDERED: ACETAMINOPHEN TAB 325 MG TAB PO PRN (19:28)
--- NOTE | 2022-11-29 19:41 | P.EPPROC ---
- EP Procedure Note Electrophysiology Procedure Note: Procedure Diagnoses EP study and frequency ablation of atrial arrhythmia Final diagnoses Typical atrial flutter with RVR Very difficult cavo tricuspid isthmus anatomy the entire isthmus was a V-shaped pouch Details Patient was brought to the EP lab in fasting state. Written informed consent was obtained prior to procedure. General anesthesia provided Sheaths placed in the right left femoral veins Diagnostic catheters placed in the right heart including high right atrium, His bundle, [place]twan sinus Pentaray catheter used mapping and ablation catheter used 2 different sheaths used Intracardiac echo catheter placed. Trace pericardial effusion with thickened pericardium noted Normal LV function Cavo tricuspid isthmus identified and tagged, tricuspid valve tagged 3-D electro-anatomic mapping performed Activation mapping performed in the right atrium using a Pentaray catheter Counterclockwise atrial flutter identified, cycle length 250 ms Absence of any septal arrhythmias or focal arrhythmias in the right atrium or in the septum of the right atrium excluded Mapping and ablation catheter placed RF line of block was made Tachycardia did not terminate despite a complete line of block This is a very difficult procedure because the cavo tricuspid isthmus was one large V-shaped pouch Therefore repeat mapping was performed to reconfirm atrial flutter Counterclockwise atrial flutter reidentified once again with repeat mapping with a Pentaray catheter Entrainment mapping performed and the tachycardia is entrain from the right atrial isthmus on his lateral aspect A repeat entrainment result in termination Thereafter the risks of the procedure was performed in sinus rhythm Careful pace mapping performed The line was interrogated very carefully A complete line of block was made in sinus rhythm A second line was made along the lateral aspect of the first line Non-capture along the RF line was proven No anatomic gaps left Bidirectional block proven This is a very long procedure, very difficult simply based on the anatomy of the cavo tricuspid isthmus Sinus cycle length 1300 ms, UT interval 176 ms, QRS 80 ms and QT interval 370 ms AH 76 and HV 58 ms RA pressure 18/8/14 mmHg Sinus recovery times at a pacing cycle length of 600 ms was 965 ms. Sinus node entrance block noted AV node Wenckebach block 420 ms Burst stimulation performed. The septal aspect from the line in the Antwan sinus os. No atrial arrhythmias induced Pacing performed from the lateral aspect of the right atrium. Burst stimulation from performed No arrhythmias induced All catheters were removed, Sheaths removed, Vascade closure device applied, Patient extubated
--- NOTE | 2022-11-29 19:43 | P.PRLE ---
RE: Zakiya Ruano Dear Dr. Cesar Sigala underwent a diagnostic EP study for an atrial tachycardia that occurred 6 months after her prior ablation However this time it was typical atrial flutter Last time she had a left atrial tachycardia She underwent successful atrial flutter ablation. She tolerated the procedure well without any acute complications I would suggest continuing metoprolol 25 mg twice daily and ELIQUIS as before Thank you for entrusting me with the care of the patient Warm regards Sincerely Mane Galvan
[2022-11-29] MEDS ORDERED: ACETAMINOPHEN IV (For NPO) 1,000 MG in EMPTY BAG 1 BAG IVPB ONE (20:00)
[2022-11-29 20:08] LABS: Glucose,Whole Blood 119 mg/dL (70-110)
[2022-11-29] MEDS: SODIUM CHLORIDE 0.9% 1,000 ML IV SCH (20:45)
[2022-11-29] MEDS: APIXABAN 5 MG TAB PO SCH (20:45)
[2022-11-30] MEDS: SODIUM CHLORIDE 0.9% 1,000 ML IV SCH (05:22)
[2022-11-30 05:53] LABS: Glucose,Whole Blood 138 mg/dL (70-110)
[2022-11-30] MEDS ORDERED: LEVOTHYROXINE 75 MCG TAB PO SCH (06:30)
[2022-11-30] MEDS: APIXABAN 5 MG TAB PO SCH (08:44)
[2022-11-30] MEDS ORDERED: metFORMIN 500 MG TAB PO SCH (09:00)
[2022-11-30] MEDS ORDERED: LINAGLIPTIN 5 MG TABLET PO SCH (09:00)
[2022-11-30 11:45] LABS: Glucose,Whole Blood 126 mg/dL (70-110)
[2022-11-30 12:23] VITALS: BP 95/48; PULSE 69; RESP 17; TEMP 98
== END 2022-11-30 14:47 | disposition home or self-care (01) ==
LOC: CATHEP 13:14 → 3SCARD 18:34 → CATHEP 11-30 14:47
PROVIDERS: ATTEND Internal Medicine Clinical Cardiac Electrophysiology
DX: I48.3 Typical atrial flutter (principal); I48.19 Other persistent atrial fibrillation; I45.2 Bifascicular block; I44.1 Atrioventricular block, second degree; I42.8 Other cardiomyopathies; E03.9 Hypothyroidism, unspecified; Z87.891 Personal history of nicotine dependence; I49.5 Sick sinus syndrome; Z79.01 Long term (current) use of anticoagulants; Z79.899 Other long term (current) drug therapy; Z79.890 Hormone replacement therapy; E11.9 Type 2 diabetes mellitus without complications; Z79.84 Long term (current) use of oral hypoglycemic drugs
CPT/HCPCS: 93662; 93653; 80048; 85025; C1894; C1769 ×3; C1760; C1730; C1731; C1893; C1732; J2001; J1644 ×2; J0131

== ENCOUNTER → 2023-01-07 | Outpatient (CLI) | payer MEDICARE ==
--- NOTE | 2023-01-07 13:04 | CTL ---
EXAMINATION TYPE: CT Low Dose Lung DATE OF EXAM: 01/07/2023 11:40 AM CLINICAL INDICATION:Female, 72 years old with history of Z87.891; personal hx of nicotine dependence , history of tobacco use. COMPARISON: 10/05/2022 TECHNIQUE: Multiple axial non-contrast scans were obtained from approximately the lung apices through the upper abdomen. Coronal and sagittal reformatted images were obtained. Low dose technique was uti lized. CT DLP: 117 mGycm, Automated exposure control for dose reduction was used. CT Contrast: Contrast used: None Oral contrast used: None FINDINGS: Limited exam secondary to low dose technique. Lack of intravenous contrast and low dose technique limits the evaluation of the vascular and soft ti ssue structures. LUNGS: No evidence of pulmonary fibrosis. No evidence of focal consolidation, pneumothorax or pleural effusion. Nodules: RUL: None. RML: Calcified granuloma series 12 image 170. RLL: None. BALTAZAR: Stable appearing left upper lobe subsolid nodular change series 12 image 96 measuring 11 mm. Has a somewhat linear extension towards the hilum. LLL: Calcified granuloma series 12 image 190. Suspected atelectasis changes posteriorly. AIRWAY: Patent and unremarkable. HEART: Size within normal limits. Coronary artery calcifications. Atherosclerosis. MEDIASTINUM: No gross evidence of adenopathy. VASCULATURE: No aortic aneurysm. MUSCULOSKELETAL: No acute osseous abnormalities SOFT TISSUES/LYMPH NODES: Unremarkable. LOWER NECK: No significant findings. UPPER ABDOMEN: No significant findings. IMPRESSION: Stable pulmonary nodules follow-up in one year is recommended. Given the grainy appearance of this ex am to regular CT chest for follow-up's. Low dose technique is not enough for this patient's body habi tus. CT LUNG RAD AND CT CHEST RECOMMENDATION: Lung-Rad 2 Benign Appearance or Behavior: Continue annual sc reening with LDCT in 12 months. S Modifier (other clinically significant findings): None Recommend smoking cessation (if current smoker), or continuation of smoking cessation (if prior smoke r). Annual screening for lung cancer with low-dose computed tomography is recommended in adults ages 55 to 77 years who have a 30 pack-year smoking history and currently smoke or have quit within the pa st 15 years. Screening should be discontinued once a person has not smoked for 15 years or develops a health problem that substantially limits life expectancy or the ability or willingness to have curat talib lung surgery. Lung rads 2021 [email or web address]
== END | disposition home or self-care (01) ==
LOC: RADCTMAIN 10:30
PROVIDERS: ATTEND Family Medicine
DX: Z12.2 Encounter for screening for malignant neoplasm of respiratory organs (principal); R91.8 Other nonspecific abnormal finding of lung field; F17.210 Nicotine dependence, cigarettes, uncomplicated
CPT/HCPCS: 71271

== ENCOUNTER 2023-05-02 05:47 | Day surgery (SDC) | payer MEDICARE ==
[2023-05-02] MEDS ORDERED: NITROGLYCERIN SL TABS 0.4 MG TAB SUBLINGUAL PRN ×2 (06:00→09:45)
[2023-05-02] MEDS ORDERED: SODIUM CHLORIDE 0.9% 1,000 ML in EMPTY BAG 1 BAG IV SCH ×2 (06:00→09:45)
[2023-05-02] MEDS ORDERED: ALPRAZolam 0.25 MG TAB PO PRN (06:00)
[2023-05-02] MEDS ORDERED: ALPRAZolam 0.5 MG TAB PO PRN (06:00)
[2023-05-02] MEDS ORDERED: ASPIRIN 325 MG TAB PO ONE (07:00)
[2023-05-02] MEDS ORDERED: MIDAZOLAM 2 MG/2 ML VIAL IVP ONE (07:39)
[2023-05-02] MEDS: fentaNYL (PF) 50 MCG/ML 2 ML AMP IVP ONE ×2 (07:40→09:08)
[2023-05-02] MEDS ORDERED: IV FLUID CONTINUATION 1,000 ML IV ONE (07:40)
[2023-05-02] MEDS ORDERED: LIDOCAINE 1% INJ 10MG/ML (5 ML VIAL-PF) SQ ONE (07:46)
[2023-05-02] MEDS ORDERED: VERAPAMIL SYRINGE (5 MG/10 ML) INTRAARTER ONE (07:50)
[2023-05-02] MEDS: HEPARIN SODIUM 1,000 UN/ML (10ML VL) IVP ONE ×3 (07:54→09:24)
[2023-05-02] MEDS ORDERED: HEPARIN SODIUM 1,000 UN/ML (10ML VL) IVP ONE (09:02)
[2023-05-02] MEDS ORDERED: CLOPIDOGREL 75 MG TAB PO ONE (09:25)
[2023-05-02] MEDS ORDERED: NITROGLYCERIN 1000MCG/10ML SYRINGE INTRACORON ONE (09:35)
[2023-05-02] MEDS ORDERED: RX INFO: IV CONTRAST WAS GIVEN 1 EACH MISC MISCELLANE PRN (09:45)
[2023-05-02] MEDS ORDERED: ZOLPIDEM 5 MG TAB PO PRN (09:45)
[2023-05-02] MEDS ORDERED: ATROPINE SULFATE 0.1 MG/ML 10ML SYRINGE IV PRN (09:45)
[2023-05-02] MEDS ORDERED: MAG HYDROX/AL HYDROX/SIMETH 30 ML CUP PO PRN (09:45)
[2023-05-02] MEDS ORDERED: IOPAMIDOL-370 200ML BTL INJ ONE (09:46)
--- NOTE | 2023-05-02 09:52 | P.PCN ---
Date of Procedure: 05/02/23 Operative Findings: PERCUTANEOUS CORONARY INTERVENTION Performing physician Nacho Howard M.D. Procedure Performed: 1. Successful stenting of the mid LAD using 2.5 x 12 and 2.5 x 12 Xience drug- eluting stent with an excellent angiographic results. 2. Adjunctive use of intravascular ultrasound Indication: Chest discomfort and this 72-year-old female patient was underwent myocardial perfusion imaging stress is and that showed moderate area of reversibility anteriorly. She underwent a heart catheterization by Dr. Yin and that revealed severe disease involving the mid LAD Approach: Right radial artery Complications: None Level of Sedation: Moderate with a sedation length of 69 minutes Procedure Discussion: After diagnostic heart catheterization was performed and reviewing the angiogram we decided to pursue with an intervention on the LAD. Anticoagulation was initiated using heparin with continuous ACT monitoring. Subsequently I did engage the left main using JL 3.5 guiding catheter. I did wire the LAD using 2 wires. The first wire was advanced through wire which kept going into the diagonal branch so I left it in the diagonal then I was able to wire the LAD using a whisper wire and subsequently the LAD was wired again using the first wire which was the run through wire which was pulled from the diuretic into the LAD. Subsequently I did balloon angioplasty of the LAD using 2.5 x 12 mm balloon. Before that intravascular ultrasound was performed and showed a diameter of the LAD around 3 mm was moderate calcifications. Subsequently I did attempt advancing 3.0 x 23 mm stent but that was unsuccessful over the 2 wires. Adjunctive use of guide liner was also unsuccessful. At that point I decided to pull the guidewire and wire the LAD using a sarah wire. After that I was able to advance 2 stents. The first one was 2.5 x 12 and second one was 2.5 x 12. Postdilatation was performed using 3 mm noncompliant balloon was performed. Final angiogram showed good angiographic results was BRANDON-3 flow. The patient was asymptomatic was no EKG changes. The procedure was completed was no complication Postprocedure Management: 1. Dual antiplatelet therapy using aspirin and Plavix for at least 6 months 2. Aggressive cholesterol control 3. Risk factors modification
--- NOTE | 2023-05-02 10:57 | P.CARDCATH ---
Date of Procedure: 05/02/23 Description of Procedure: DIAGNOSTIC CORONARY ANGIOGRAPHY and LEFT HEART CATH REPORT PROCEDURES PERFORMED: 1. Left heart catheterization 2. Selective coronary angiography 3. Moderate concious sedation 40 mins 4. Right radial access INDICATION: Patient is a 72-year-old female with past medical history of atrial fibrillation. Recently she has been experiencing exertional chest pain and shortness of breath. For this she underwent, nuclear stress test which showed moderate intensity reversible perfusion defect in evolving anteroseptal wall. For this she was scheduled for an outpatient heart catheterization CONSENT: I have discussed the risks, benefits and alternative therapies for the above-mentioned procedure, sedation/analgesia and necessary blood product administration (if indicated, as they pertain to this patient). The patient has indicated understanding and acceptance of the risks and procedures discussed. PROCEDURE: After the risks, benefits and alternatives of the above mentioned procedure explained in detail with the patient, informed consent was obtained. Patient was taken to the catheterization lab and prepped and draped in usual sterile fashion. 1% lidocaine was infilterated over the right radial artery. A 6-Sami sheath was placed in the right radial artery using modified Seldinger technique. The sheath 5 mg verapamil was administered intra-arterially. J tipped wire was advanced under fluroscopic guidance. Once the wire tip reached aortic root [6000] units of IV heparin was given. Over the wire JL3.5 diagnostic catheter was advanced. Wire was removed, catheter was flushed and manupulated under fluroscopy to selectively engaged the left coronary ostium. Left coronary angiography was performed in different angiographic projections. This catheter was exchanged for a JR4 diagnostic catheter over the wire. The catheter was flushed and manipulated to cross the aortic valve. LV pressures were obtained. Pullback was performed across aortic valve and catheter was manipulated to selectively engage the right coronary ostium under fluroscopic guidance. Right coronary angiography was performed in different angiographic projections. Catheter was removed over the . Radial sheath was flushed. The right radial sheath was removed and a TR band was placed with excellent patent hemostasis was achieved. The patient tolerated the procedure well. Patient was transported back to the post catheterization holding area in stable condition. Angiographic images were reviewed in detail. Conscious Sedation: Patient's ECG, heart rate, blood pressure, pulse oxymetry was monitored throughout the duration of procedure under the direct supervision. [1] mg Versed and [50] mg Fentanyl were used for induction of moderate concious sedation. Total duration of [40] minutes HEMODYNAMICS: Aortic Pressure: [130/80] mmHg. LV pressure: [130/10] mmHg. LVEDP [20] mmHg. SELECTIVE CORONARY ARTERIOGRAPHY: LEFT MAIN: The left main is long and large caliber vessel which bifurcates into the LAD and circumflex. There is 20% ostial LM disease and 205 distal LM disease which is not flow limiting. LEFT ANTERIOR DESCENDING CORONARY ARTERY: LAD is a large caliber vessel which wraps around to the apex. Mid LAD has long tubular segment of calcific 70%stenosis. LAD gives diagonal arteries which are patent. LEFT CIRCUMFLEX CORONARY ARTERY: Non dominant. Left circumflex is a moderate caliber vessel without significant stenosis. RIGHT CORONARY ARTERY: The right coronary artery is a large caliber vessel which gives off a PDA and PLV branch and is the dominant vessel. RCA ostium has 20% stenosis. RCA and PDA has mild luminal irregularities in 20% range. IMPRESSION: 1. 70% calcific tubular Mid LAD stenosis which is culprit and corresponds to the finding of nuclear stress test. 2. Mildly elevated left sided filling pressures PLAN: Case discussed with post framer. Findings updated to family. Proceed with PCI of LAD. Admit after cardiac cath. Check BMP tomorrow, if colorman normal, d/c Plan to go on triple therapy for 1 month. Aspirin, plavix and eliquis. After 1 month d/c aspirin, continue plavix and eliquis. f/u with Dr Galvan in 1 week Performing Physician Pete Yin MD
[2023-05-02 14:53] VITALS: BMI 41.3
[2023-05-02] MEDS ORDERED: METOPROLOL TARTRATE 50 MG TAB PO STA (15:10)
[2023-05-02 16:19] LABS: Glucose,Whole Blood 141 mg/dL (70-110)
[2023-05-02 20:10] LABS: Glucose,Whole Blood 143 mg/dL (70-110)
[2023-05-02] MEDS ORDERED: ATORVASTATIN 40 MG TAB PO SCH ×2 (21:00)
[2023-05-02] MEDS: METOPROLOL TARTRATE 25 MG TAB PO SCH (21:10)
[2023-05-02] MEDS: APIXABAN 5 MG TAB PO SCH (21:10)
[2023-05-03 04:28] VITALS: TEMP 97.6
[2023-05-03 06:28] LABS: Glucose,Whole Blood 144 mg/dL (70-110)
[2023-05-03] MEDS: METOPROLOL TARTRATE 25 MG TAB PO SCH (06:28)
[2023-05-03] MEDS ORDERED: LEVOTHYROXINE 75 MCG TAB PO SCH (06:30)
[2023-05-03 08:06] VITALS: BP 110/58; PULSE 122; RESP 17
[2023-05-03] MEDS: APIXABAN 5 MG TAB PO SCH (08:06)
[2023-05-03] MEDS ORDERED: NON FORMULARY DRUG (Sitagliptin Phos/Metformin Hcl [Janumet 50-500 Mg Tablet] 1 EACH Table PO SCH (09:00)
[2023-05-03] MEDS ORDERED: ASPIRIN 81 MG PO SCH ×2 (09:00)
[2023-05-03] MEDS ORDERED: CLOPIDOGREL 75 MG TAB PO SCH (09:00)
--- NOTE | 2023-05-03 09:42 | P.DS ---
Providers Attending physician: Pete Yin MD Consults: 05/02/23 09:45 Consult Physician Routine Consulting Provider: [facility] Consult Reason/Comments: Post Interventional patient Do you want consulting provider notified?: Already Contacted Primary care physician: Josselin Guerrero [facility] Course: The patient is a 72-year-old female patient who sees Dr. Galvan regularly who underwent yesterday a heart catheterization and was found to have severe disease involving the left anterior descending artery. She underwent successful stenting of the LAD with a good angiographic results and with no complication from the right radial approach. The patient was seen and evaluated this morning. She is asymptomatic and hemodynamically stable. The patient is going to be discharged home on triple therapy including low-dose aspirin and antiplatelet using Plavix as well as oral anticoagulation using low-dose Eliquis for 4 weeks subsequently I would suggest to stop the aspirin and continue antiplatelet with Plavix and low-dose anticoagulation with Eliquis The patient is going to be seen and follow-up with Dr. Galvan Plan - Discharge Summary Discharge Rx Participant: No New Discharge Prescriptions: No Action RX: Apixaban [Eliquis] 5 mg PO BID #60 tab Ergocalciferol [Vitamin D2 (1250 Mcg = 22091 Iu)] 1,250 mcg PO TOMAS sitaGLIPtin PHOS/metFORMIN HCL [Janumet 50-500 mg Tablet] 1 each PO DAILY RX: Metoprolol Tartrate 25 mg PO BID #180 tab RX: Aspirin 81 mg PO DAILY RX: Levothyroxine Sodium 150 mcg PO DAILY Discharge Medication List RX: Apixaban [Eliquis] 5 mg PO BID #60 tab 02/13/21 [Rx] RX: Levothyroxine Sodium 150 mcg PO DAILY 07/04/21 [History] Ergocalciferol [Vitamin D2 (1250 Mcg = 89748 Iu)] 1,250 mcg PO TOMAS 11/27/22 [History] sitaGLIPtin PHOS/metFORMIN HCL [Janumet 50-500 mg Tablet] 1 each PO DAILY 11/27/22 [History] RX: Metoprolol Tartrate 25 mg PO BID #180 tab 11/29/22 [Rx] RX: Aspirin 81 mg PO DAILY 04/30/23 [History]
[2023-05-03 10:02] LABS: African American GFR (CKD) 58 (>60 ml/min/1.73 sqM); Anion Gap 9 mmol/L; Blood Urea Nitrogen 15 mg/dL (7-17); Calcium 8.7 mg/dL (8.4-10.2); Carbon Dioxide 23 mmol/L (22-30); Chloride 104 mmol/L (98-107); Glucose 229 mg/dL (74-99); Non-African American GFR(CKD) 50 (>60 ml/min/1.73 sqM); Potassium 4.2 mmol/L (3.5-5.1); Sodium 136 mmol/L (137-145)
[2023-05-03 10:06] LABS: African American GFR (CKD) 59 (>60 ml/min/1.73 sqM); Non-African American GFR(CKD) 51 (>60 ml/min/1.73 sqM)
[2023-05-05] MEDS ORDERED: ERGOCALCIFEROL 1,250 MCG (50,000 IU) CAPSULE PO SCH (09:00)
== END 2023-05-03 10:54 | disposition home or self-care (01) ==
LOC: CATHCVL 05:47 → 3SCARD 09:41 → CATHCVL 05-03 10:54
PROVIDERS: ATTEND Student in an Organized Health Care Education/Training Program
DX: I25.10 Atherosclerotic heart disease of native coronary artery without angina pectoris (principal); E11.9 Type 2 diabetes mellitus without complications; N18.4 Chronic kidney disease, stage 4 (severe); Z79.4 Long term (current) use of insulin; Z79.82 Long term (current) use of aspirin; Z79.01 Long term (current) use of anticoagulants; Z79.899 Other long term (current) drug therapy
CPT/HCPCS: 92978; 93458; 76937; 80048; 82565; C9600; C1769 ×5; C1887 ×2; C1894; C1725 ×3; C1753; C1874 ×2; J2250; J2001; J3010; J1644; Q9967; J2305

== ENCOUNTER 2023-05-04 10:57 | Inpatient (IN) | payer MEDICARE ==
[2023-05-04] MEDS ORDERED: SODIUM CHLORIDE 0.9% 500 ML 500 ML IV STA (11:34)
[2023-05-04] MEDS ORDERED: DILTIAZEM DRIP BOLUS FROM BAG 1 MG SOLN IV ONE (11:34)
--- NOTE | 2023-05-04 11:43 | ED ---
General Adult HPI - General Chief complaint: Arrhythmia/Palpitations Stated complaint: Increased Heart Rate/pressure Time Seen by Provider: 05/04/23 11:05 Source: patient, RN notes reviewed, old records reviewed Mode of arrival: ambulatory Limitations: no limitations - History of Present Illness Initial comments: This is a 72-year-old female presents emergency department stating that she had a cardiac catheterization 2 days ago and she was discharged from hospital yesterday. Patient also states she has long-standing history of atrial fibrillation. Patient states she's had multiple ablations. Patient states today she felt her heart racing and she oriented taken her metoprolol so she came to the hospital. Patient denies any new chest pain today. Patient denies any difficulty breathing shortest breath. Patient states she also took her eliquis today. Patient denies any recent fever chills or cough. Patient denies any swelling to the legs or calf tenderness. - Related Data Home Medications Medication Instructions Recorded Confirmed Levothyroxine Sodium 150 mcg PO DAILY 07/04/21 05/02/23 Ergocalciferol [Vitamin D2 (1250 1,250 mcg PO TOMAS 11/27/22 05/02/23 Mcg = 25318 Iu)] sitaGLIPtin PHOS/metFORMIN HCL 1 each PO DAILY 11/27/22 05/02/23 [Janumet 50-500 mg Tablet] Previous Rx's Medication Instructions Recorded Apixaban [Eliquis] 2.5 mg PO BID #60 tab 05/03/23 Aspirin 81 mg PO DAILY #0 05/03/23 Clopidogrel [Plavix] 75 mg PO DAILY #90 tab 05/03/23 Metoprolol Tartrate 25 mg PO TID #270 tab 05/03/23 Nitroglycerin Sl Tabs [Nitrostat] 0.4 mg SUBLINGUAL Q5M PRN #25 tab 05/03/23 Pravastatin Sodium [Pravachol] 20 mg PO HS #90 tab 05/03/23 Allergies Allergy/AdvReac Type Severity Reaction Status Date / Time No Known Allergies Allergy Verified 05/04/23 11:04 Review of Systems ROS Statement: Those systems with pertinent positive or pertinent negative responses have been documented in the HPI. ROS Other: All systems not noted in ROS Statement are negative. Past Medical History Past Medical History: Atrial Fibrillation, Diabetes Mellitus, Thyroid Disorder Additional Past Medical History / Comment(s): recent stress test, SOB w/exertion History of Any Multi-Drug Resistant Organisms: None Reported Past Surgical History: Ablation, Breast Surgery, Cardiac Ablation, Heart Catheterization With Stent, Tubal Ligation Additional Past Surgical History / Comment(s): lumpectomy right breast, CARDIOVERSION, COLONOSCOPY, ablation x3 Past Anesthesia/Blood Transfusion Reactions: No Reported Reaction Past Psychological History: No Psychological Hx Reported Smoking Status: Former smoker Past Alcohol Use History: Rare Past Drug Use History: None Reported - Past Family History Mother Family Medical History: COPD Father Additional Family Medical History / Comment(s): cerebral hemorrhage. Sister(s) Family Medical History: Cancer General Exam - General Exam Comments Initial Comments: GENERAL: Patient is well-developed and well-nourished. Patient is nontoxic and well- hydrated and is in mild distress. ENT: Neck is soft and supple. No significant lymphadenopathy is noted. Oropharynx is clear. Moist mucous membranes. Neck has full range of motion without eliciting any pain. EYES: The sclera were anicteric and conjunctiva were pink and moist. Extraocular movements were intact and pupils were equal round and reactive to light. Eyelids were unremarkable. PULMONARY: Unlabored respirations. Good breath sounds bilaterally. No audible rales rhonchi or wheezing was noted. CARDIOVASCULAR: Patient's heart rate is about 140 beats a minute and regular ABDOMEN: Soft and nontender with normal bowel sounds. SKIN: Skin is clear with no lesions or rashes and otherwise unremarkable. NEUROLOGIC: Patient is alert and oriented x3. Cranial nerves II through XII are grossly intact. Motor and sensory are also intact. Normal speech, volume and content. Symmetrical smile. MUSCULOSKELETAL: Normal extremities with adequate strength and full range of motion. LYMPHATICS: No significant lymphadenopathy is noted PSYCHIATRIC: Normal psychiatric evaluation. Limitations: no limitations Course Vital Signs 05/04/23 05/04/23 11:04 12:46 Temperature 98.2 F Pulse Rate 137 H 122 H Respiratory 18 18 Rate Blood Pressure 117/68 121/66 O2 Sat by Pulse 95 98 Oximetry Medical Decision Making - Medical Decision Making EKG was interpreted by myself EKG shows atrial flutter 134 bpm QRS is 88 QT interval 149 QTC is 228. Was pt. sent in by a medical professional or institution (, PA, ANTISQUEAK WORKER, urgent care, hospital, or fpc...) When possible be specific @ -No Did you speak to anyone other than the patient for history (EMS, parent, family, police, friend...)? What history was obtained from this source @ -No Did you review nursing and triage notes (agree or disagree)? Why? @ -I reviewed and agree with nursing and triage notes Were old charts reviewed (outside hosp., previous admission, EMS record, old EKG, old radiological studies, urgent care reports/EKG's, fpc records)? Report findings @ -Reviewed prior charts in prior lab work Differential Diagnosis (chest pain, altered mental status, abdominal pain women, abdominal pain men, vaginal bleeding, weakness, fever, dyspnea, syncope, headache, dizziness, GI bleed, back pain, seizure, CVA, palpatations, mental health, musculoskeletal)? @ -Differential Palpitations Ventricular arrhythmias, atrial arrhythmias, myocardial infarction, anemia, thyrotoxicosis, electrolyte imbalance, hypokalemia, pulmonary embolism, pulmonary disease, drugs, alcohol, anxiety, stress.... This is not meant to be an all-inclusive list. EKG interpreted by me (3pts min.). @ -As above X-rays interpreted by me (1pt min.). @ -Chest x-ray shows no acute abnormality. CT interpreted by me (1pt min.). @ -None done U/S interpreted by me (1pt. min.). @ -None done What testing was considered but not performed or refused? (CT, X-rays, U/S, labs)? Why? @ -None What meds were considered but not given or refused? Why? @ -None Did you discuss the management of the patient with other professionals (professionals i.e. , PA, ANTISQUEAK WORKER, lab, RT, psych nurse, social services, fisher purse seine, teacher, equal employment opportunity officer, onsite case manager)? Give summary @ -I spoke with Dr. Mcfarland and he agreed to admit the patient admitted the patient wrote admitting Was smoking cessation discussed for >3mins.? @ -No Was critical care preformed (if so, how long)? @ -35 minutes Were there social determinants of health that impacted care today? How? (Homelessness, low income, unemployed, alcoholism, drug addiction, transportation, low edu. Level, literacy, decrease access to med. care, snf, rehab)? @ -No Was there de-escalation of care discussed even if they declined (Discuss DNR or withdrawal of care, Hospice)? DNR status @ -No What co-morbidities impacted this encounter? (DM, HTN, Smoking, COPD, CAD, Cancer, CVA, ARF, Chemo, Hep., AIDS, mental health diagnosis, sleep apnea, morbid obesity)? @ -None Was patient admitted / discharged? Hospital course, mention meds given and route, prescriptions, significant lab abnormalities, going to OR and other pe rtinent info. @ -Patient's heart rate was about 135 beats minute it look like atrial flutter. I placed the patient on a Cardizem drip after I gave the patient a 5 mg pulse of Cardizem. Also gave the patient a liter of fluid while in the emergency department. Patient is feeling considerably better. Undiagnosed new problem with uncertain prognosis? @ -No Drug Therapy requiring intensive monitoring for toxicity (Heparin, Nitro, Insulin, Cardizem)? @ -No Were any procedures done? @ -No Diagnosis/symptom? @ -Atrial flutter with rapid ventricular response Acute, or Chronic, or Acute on Chronic? @ -Acute Uncomplicated (without systemic symptoms) or Complicated (systemic symptoms)? @ -Complicated Side effects of treatment? @ -No Exacerbation, Progression, or Severe Exacerbation? @ -No Poses a threat to life or bodily function? How? (Chest pain, USA, ID, pneumonia, PE, COPD, DKA, ARF, appy, cholecystitis, CVA, Diverticulitis, Homicidal, Suicidal, threat to staff... and all critical care pts) @ -Yes this could lead to hypoperfusion and end organ dysfunction - Lab Data Result diagrams: 05/04/23 12:02 05/04/23 12:02 Lab Results 05/04/23 05/04/23 05/04/23 Range/Units 12:02 12:02 12:02 WBC 8.2 (3.8-10.6) k/uL RBC 4.19 (3.80-5.40) m/uL Hgb 12.9 (11.4-16.0) gm/dL Hct 37.7 (34.0-46.0) % MCV 90.1 (80.0-100.0) fL MCH 30.8 (25.0-35.0) pg MCHC 34.2 (31.0-37.0) g/dL RDW 16.6 H (11.5-15.5) % Plt Count 167 (150-450) k/uL MPV 8.0 Neutrophils % 69 % Lymphocytes % 22 % Monocytes % 5 % Eosinophils % 3 % Basophils % 0 % Neutrophils # 5.7 (1.3-7.7) k/uL Lymphocytes # 1.8 (1.0-4.8) k/uL Monocytes # 0.4 (0-1.0) k/uL Eosinophils # 0.2 (0-0.7) k/uL Basophils # 0.0 (0-0.2) k/uL Poikilocytosis Slight Anisocytosis Slight PT 10.6 (9.0-12.0) sec INR 1.0 (<1.2) APTT 26.2 (22.0-30.0) sec Sodium 138 (137-145) mmol/L Potassium 4.5 (3.5-5.1) mmol/L Chloride 106 (98-107) mmol/L Carbon Dioxide 25 (22-30) mmol/L Anion Gap 7 mmol/L BUN 18 H (7-17) mg/dL Creatinine 1.12 H (0.52-1.04) mg/dL Est GFR (CKD-EPI)AfAm 57 (>60 ml/min/1.73 sqM) Est GFR (CKD-EPI)NonAf 50 (>60 ml/min/1.73 sqM) Glucose 126 H (74-99) mg/dL Calcium 9.0 (8.4-10.2) mg/dL Magnesium 2.0 (1.6-2.3) mg/dL Total Bilirubin 0.7 (0.2-1.3) mg/dL AST 27 (14-36) U/L ALT 22 (4-34) U/L Alkaline Phosphatase 53 (38-126) U/L Troponin I (0.000-0.034) ng/mL Total Protein 6.7 (6.3-8.2) g/dL Albumin 3.9 (3.5-5.0) g/dL 05/04/23 Range/Units 12:02 WBC (3.8-10.6) k/uL RBC (3.80-5.40) m/uL Hgb (11.4-16.0) gm/dL Hct (34.0-46.0) % MCV (80.0-100.0) fL MCH (25.0-35.0) pg MCHC (31.0-37.0) g/dL RDW (11.5-15.5) % Plt Count (150-450) k/uL MPV Neutrophils % % Lymphocytes % % Monocytes % % Eosinophils % % Basophils % % Neutrophils # (1.3-7.7) k/uL Lymphocytes # (1.0-4.8) k/uL Monocytes # (0-1.0) k/uL Eosinophils # (0-0.7) k/uL Basophils # (0-0.2) k/uL Poikilocytosis Anisocytosis PT (9.0-12.0) sec INR (<1.2) APTT (22.0-30.0) sec Sodium (137-145) mmol/L Potassium (3.5-5.1) mmol/L Chloride (98-107) mmol/L Carbon Dioxide (22-30) mmol/L Anion Gap mmol/L BUN (7-17) mg/dL Creatinine (0.52-1.04) mg/dL Est GFR (CKD-EPI)AfAm (>60 ml/min/1.73 sqM) Est GFR (CKD-EPI)NonAf (>60 ml/min/1.73 sqM) Glucose (74-99) mg/dL Calcium (8.4-10.2) mg/dL Magnesium (1.6-2.3) mg/dL Total Bilirubin (0.2-1.3) mg/dL AST (14-36) U/L ALT (4-34) U/L Alkaline Phosphatase (38-126) U/L Troponin I 0.093 H* (0.000-0.034) ng/mL Total Protein (6.3-8.2) g/dL Albumin (3.5-5.0) g/dL Disposition Clinical Impression: Atrial flutter with rapid ventricular response Disposition: ADMITTED IP TO THIS [facility] Referrals: Josselin Guerrero MD [Primary Care Provider] - 1-2 days Time of Disposition: 14:13
[2023-05-04] MEDS: DILTIAZEM 125 MG in SODIUM CHLORIDE 0.9% 100 ML IV SCH (12:07)
[2023-05-04 12:33] LABS: Anisocytosis Slight; Basophils % (A) 0 %; Eosinophils # (A) 0.2 k/uL (0-0.7); Eosinophils % (A) 3 %; HCT 37.7 % (34.0-46.0); HGB 12.9 gm/dL (11.4-16.0); Lymphocytes # (A) 1.8 k/uL (1.0-4.8); Lymphocytes % (A) 22 %; MCH 30.8 pg (25.0-35.0); MCHC 34.2 g/dL (31.0-37.0); MCV 90.1 fL (80.0-100.0); Monocytes # (A) 0.4 k/uL (0-1.0); Monocytes % (A) 5 %; Neutrophils # (A) 5.7 k/uL (1.3-7.7); Neutrophils % (A) 69 %; Platelet Count 167 k/uL (150-450); Poikilocytosis Slight; RBC 4.19 m/uL (3.80-5.40); RDW 16.6 % (11.5-15.5); WBC 8.2 k/uL (3.8-10.6)
[2023-05-04 12:46] LABS: Partial Thromboplastin Time 26.2 sec (22.0-30.0); Prothrombin Time 10.6 sec (9.0-12.0)
--- NOTE | 2023-05-04 12:48 | XR ---
EXAMINATION TYPE: XR chest 2V DATE OF EXAM: 05/04/2023 12:41 PM COMPARISON: Chest radiographs from 03/21/2022 TECHNIQUE: XR chest 2V Frontal and lateral views of the chest. CLINICAL INDICATION:Female, 72 years old with history of dysrhythmia; FINDINGS: Lungs/Pleura: There is no evidence of pleural effusion, focal consolidation, or pneumothorax. Pulmonary vascularity: Unremarkable. Heart/mediastinum: Cardiomediastinal silhouette is prominent in size. Atherosclerotic calcifications are seen in the aorta. Musculoskeletal: No acute osseous pathology. IMPRESSION: No acute cardiopulmonary disease/process.
[2023-05-04 12:50] LABS: ALT 22 U/L (4-34); AST 27 U/L (14-36); African American GFR (CKD) 57 (>60 ml/min/1.73 sqM); Albumin 3.9 g/dL (3.5-5.0); Alkaline Phosphatase 53 U/L (38-126); Anion Gap 7 mmol/L; Blood Urea Nitrogen 18 mg/dL (7-17); Carbon Dioxide 25 mmol/L (22-30); Chloride 106 mmol/L (98-107); Glucose 126 mg/dL (74-99); Non-African American GFR(CKD) 50 (>60 ml/min/1.73 sqM); Potassium 4.5 mmol/L (3.5-5.1); Sodium 138 mmol/L (137-145); Total Bilirubin 0.7 mg/dL (0.2-1.3); Total Protein 6.7 g/dL (6.3-8.2)
[2023-05-04] MEDS ORDERED: NITROGLYCERIN SL TABS 0.4 MG TAB SUBLINGUAL PRN (14:13)
[2023-05-04] MEDS ORDERED: DEXTROSE 50% SYRINGE 50 ML IVP PRN ×2 (14:34)
--- NOTE | 2023-05-04 14:35 | P.HPIM ---
History of Present Illness H&P Date: 05/04/23 History of present illness; patient 72-year-old lady with past medical history s ignificant for atrial fibrillation, coronary artery disease with recent stenting, hypertension who presented to the ER because of palpitations. Patient was discharged yesterday after undergoing successful stenting of the LAD. Patient has history of chronic A. fib, on Lopressor, stated that the time of discharge her heart rate was fast and her dose of Lopressor was increased to 3 times daily. Patient stated that on coming home she continued to feel that her heart was beating fast. Patient was complaining of shortness of breath on exertion, complaining of palpitation. Denied any chest pain. Denied any orthopnea or PND. Patient continues to have these symptoms throughout the night, his morning her daughter told her to come to the ER Initial lab work done in the ER showed WBC 8.2, hemoglobin 12.9, platelet count 167, sodium 1:30, potassium 4.5, BUN 18, creatinine 1.12 more troponin 0.093 EKG done in the ER showed regular rate 134, QRS 88, no ST segment elevation, no T-wave inversion, A. fib with RVR Chest x-ray done in the ER showed no acute cardiopulmonary process She was started on Cardizem drip and was admitted to medicine service REVIEW OF SYSTEMS: CONSTITUTIONAL: No fever, no malaise, no fatigue. HEENT: No recent visual problems or hearing problems. Denied any sore throat. CARDIOVASCULAR: As mentioned in HPI PULMONARY: As mentioned in HPI GASTROINTESTINAL: No diarrhea, no nausea, no vomiting, no abdominal pain. NEUROLOGICAL: No headaches, no weakness, no numbness. HEMATOLOGICAL: Denies any bleeding or petechiae. GENITOURINARY: Denies any burning micturition, frequency, or urgency. MUSCULOSKELETAL/RHEUMATOLOGICAL: Denies any joint pain, swelling, or any muscle pain. ENDOCRINE: Denies any polyuria or polydipsia. The rest of the 14-point review of systems is negative. PHYSICAL EXAMINATION: GENERAL: The patient is alert and oriented x3, not in any acute distress. Well developed, well nourished. HEENT: Pupils are round and equally reacting to light. EOMI. No scleral icterus. No conjunctival pallor. Normocephalic, atraumatic. No pharyngeal erythema. No thyromegaly. CARDIOVASCULAR: S1 and S2 present. No murmurs, rubs, or gallops. PULMONARY: Chest is clear to auscultation, no wheezing or crackles. ABDOMEN: Soft, nontender, nondistended, normoactive bowel sounds. No palpable organomegaly. MUSCULOSKELETAL: No joint swelling or deformity. EXTREMITIES: No cyanosis, clubbing, or pedal edema. NEUROLOGICAL: Gross neurological examination did not reveal any focal deficits. SKIN: No rashes. Assessment and plan A. fib with RVR Coronary artery disease with recent stenting of LAD Hypertension Hyperlipidemia Knd-ekcomsq-safhptvve diabetes mellitus Monitor vital signs Monitor CBC Monitor CMP Continue telemetry monitoring Trend troponin Continue Cardizem drip Resume aspirin and Plavix Resume Eliquis Consult cardiology Labs and medication were reviewed.. Continue same treatment. Continue with symptomatic treatment. Resume home medication. Monitor labs and vitals. DVT and GI prophylaxis. Further recommendations as per clinical course of the patient Dictation was produced using [employer] dictation software. please excuse any grammatical, word or spelling errors. Past Medical History Past Medical History: Atrial Fibrillation, Diabetes Mellitus, Thyroid Disorder Additional Past Medical History / Comment(s): recent stress test, SOB w/exertion History of Any Multi-Drug Resistant Organisms: None Reported Past Surgical History: Ablation, Breast Surgery, Cardiac Ablation, Heart Catheterization With Stent, Tubal Ligation Additional Past Surgical History / Comment(s): lumpectomy right breast, CARDIOVERSION, COLONOSCOPY, ablation x3 Past Anesthesia/Blood Transfusion Reactions: No Reported Reaction Past Psychological History: No Psychological Hx Reported Smoking Status: Former smoker Past Alcohol Use History: Rare Past Drug Use History: None Reported - Past Family History Mother Family Medical History: COPD Father Additional Family Medical History / Comment(s): cerebral hemorrhage. Sister(s) Family Medical History: Cancer Medications and Allergies Home Medications Medication Instructions Recorded Confirmed Type Levothyroxine Sodium 150 mcg PO DAILY 07/04/21 05/02/23 History Ergocalciferol [Vitamin D2 (1250 1,250 mcg PO TOMAS 11/27/22 05/02/23 History Mcg = 91471 Iu)] sitaGLIPtin PHOS/metFORMIN HCL 1 each PO DAILY 11/27/22 05/02/23 History [Janumet 50-500 mg Tablet] Apixaban [Eliquis] 2.5 mg PO BID #60 tab 05/03/23 Rx Aspirin 81 mg PO DAILY #0 05/03/23 05/02/23 Rx Clopidogrel [Plavix] 75 mg PO DAILY #90 tab 05/03/23 Rx Metoprolol Tartrate 25 mg PO TID #270 tab 05/03/23 Rx Nitroglycerin Sl Tabs [Nitrostat] 0.4 mg SUBLINGUAL Q5M PRN #25 tab 05/03/23 Rx Pravastatin Sodium [Pravachol] 20 mg PO HS #90 tab 05/03/23 Rx Allergies Allergy/AdvReac Type Severity Reaction Status Date / Time No Known Allergies Allergy Verified 05/04/23 11:04 Physical Exam Vitals: Vital Signs Temp Pulse Resp BP Pulse Ox 05/04/23 12:46 122 H 18 121/66 98 05/04/23 11:04 98.2 F 137 H 18 117/68 95 Intake and Output 05/03/23 05/04/23 05/04/23 22:59 06:59 14:59 Other: Weight 118.841 kg Results CBC & Chem 7: 05/04/23 12:02 05/04/23 12:02 Labs: Abnormal Lab Results - Last 24 Hours (Table) 05/04/23 05/04/23 05/04/23 Range/Units 12:02 12:02 12:02 RDW 16.6 H (11.5-15.5) % BUN 18 H (7-17) mg/dL Creatinine 1.12 H (0.52-1.04) mg/dL Glucose 126 H (74-99) mg/dL Troponin I 0.093 H* (0.000-0.034) ng/mL
[2023-05-04 16:57] LABS: Glucose,Whole Blood 133 mg/dL (70-110)
[2023-05-04] MEDS: INSULIN ASPART (NovoLOG) 100 UNIT/ML VIAL SQ SCH ×2 (17:59→20:41)
[2023-05-04] MEDS: METOPROLOL TARTRATE 25 MG TAB PO SCH ×2 (18:11→22:16)
[2023-05-04 21:07] LABS: Glucose,Whole Blood 123 mg/dL (70-110)
[2023-05-04] MEDS: PRAVASTATIN SODIUM 20 MG TAB PO SCH (22:14)
[2023-05-04] MEDS: APIXABAN 2.5 MG TABLET PO SCH (22:14)
[2023-05-05 06:14] LABS: Glucose,Whole Blood 134 mg/dL (70-110)
--- NOTE | 2023-05-05 06:38 | P.CRDCN ---
History of Present Illness Consult date: 05/05/23 Chief complaint: Tachycardia History of present illness: The patient is a pleasant 72-year-old female patient who is known to our service from before. Dr. Galvan regularly with CAD status post a stenting of the LAD recently as well as paroxysmal atrial fibrillation as well as hypertension and dyslipidemia. The patient was seen by our service recently where she underwent a heart catheterization as a workup for ruling out severe CAD as a workup for her atrial fibrillation. The heart catheterization reviewed severe disease involving the mid LAD and the patient underwent stenting of the LAD with a good angiographic results and she was discharged the following day in stable medical condition. She presented back to the hospital because she noticed that her heart rate has been fast and above 100 bpm. She was asymptomatic into of heart racing or fluttering or dizziness or lightheadedness or presyncope or syncope and no symptoms of any chest pain or chest discomfort or shortness of breath or lower extremities edema. Her daughter brought the patient to the hospital because she was tachycardic and the EKG revealed atrial fibrillation with heart rate about 140 bpm. Subsequently she was started on Cardizem IV and her heart rate has improved significantly she stated that she has been compliant with the current dose of beta paz she was placed on which is metoprolol 25 mg by mouth 3 times a day. Also she has been compliant with the triple therapy including the aspirin and Plavix and oral anticoagulation. Currently the pat ient heart rate has been in the 80s and 90s and she is not on any IV medication beside metoprolol. She is asymptomatic. The EKG showed atrial fibrillation with RVR at the beginning. The rest of the workup came in to be overall unremarkable. The examination is remarkable for irregular rhythm with overall controlled heart rate and clear breathing sounds bilaterally and no lower extremity edema noted Assessment Atrial fibrillation with RVR currently the A. fib is under good control. Patient was known to have paroxysmal atrial fibrillation status post ablation CAD status post PCI of the LAD as described above Hypertension Dyslipidemia Plan Continue current dose of beta paz Continue triple therapy Monitor the patient for additional 24 hours Follow-up with the patient Past Medical History Past Medical History: Atrial Fibrillation, Diabetes Mellitus, Thyroid Disorder Additional Past Medical History / Comment(s): recent stress test, SOB w/exertion History of Any Multi-Drug Resistant Organisms: None Reported Past Surgical History: Ablation, Breast Surgery, Cardiac Ablation, Heart Catheterization With Stent, Tubal Ligation Additional Past Surgical History / Comment(s): lumpectomy right breast, CARDIOVERSION, COLONOSCOPY, ablation x3, heart cath with 2 stents 05/02/23 Past Anesthesia/Blood Transfusion Reactions: No Reported Reaction Date of Last Stent Placement:: 05/02/2023 Past Psychological History: No Psychological Hx Reported Smoking Status: Former smoker Past Alcohol Use History: Rare Additional Past Alcohol Use History / Comment(s): quit smoking january 2021. started smoking early , previously smoked over 1ppd. Past Drug Use History: None Reported - Past Family History Mother Family Medical History: COPD Father Additional Family Medical History / Comment(s): cerebral hemorrhage. Sister(s) Family Medical History: Cancer Medications and Allergies Home Medications Medication Instructions Recorded Confirmed Type Levothyroxine Sodium 150 mcg PO DAILY 07/04/21 05/04/23 History Ergocalciferol [Vitamin D2 (1250 1,250 mcg PO TOMAS 11/27/22 05/04/23 History Mcg = 45006 Iu)] sitaGLIPtin PHOS/metFORMIN HCL 1 tab PO DAILY 11/27/22 05/04/23 History [Janumet 50-500 mg Tablet] Apixaban [Eliquis] 2.5 mg PO BID #60 tab 05/03/23 05/04/23 Rx Aspirin 81 mg PO DAILY #0 05/03/23 05/04/23 Rx Clopidogrel [Plavix] 75 mg PO DAILY #90 tab 05/03/23 05/04/23 Rx Metoprolol Tartrate 25 mg PO TID #270 tab 05/03/23 05/04/23 Rx Pravastatin Sodium [Pravachol] 20 mg PO HS #90 tab 05/03/23 05/04/23 Rx Nitroglycerin Sl Tabs [Nitrostat] 0.4 mg SL Q5M PRN 05/04/23 05/04/23 History Allergies Allergy/AdvReac Type Severity Reaction Status Date / Time No Known Allergies Allergy Verified 05/04/23 14:43 Physical Exam Vitals: Vital Signs Temp Pulse Pulse Resp BP BP Pulse Ox 05/05/23 04:00 97.6 F 66 16 94/58 97 05/05/23 02:00 72 16 05/05/23 00:00 98.1 F 72 16 112/68 98 08/19/23 20:00 76 16 05/04/23 18:00 76 16 121/74 96 05/04/23 16:35 134 H 16 100/69 96 05/04/23 16:20 97.7 F 98 18 104/59 96 05/04/23 15:00 85 16 94/60 96 05/04/23 14:05 97.5 F L 98 18 98/56 98 05/04/23 12:46 122 H 18 121/66 98 05/04/23 11:04 98.2 F 137 H 18 117/68 95 Intake and Output 05/04/23 05/04/23 05/05/23 14:59 22:59 06:59 Intake Total 120 Balance 120 Intake: Oral 120 Other: # Voids 3 Weight 118.841 kg 118.841 kg 114.5 kg Results 05/04/23 12:02 05/04/23 12:02 Cardiac Enzymes 05/04/23 05/04/23 05/04/23 Range/Units 12:02 12:02 16:50 AST 27 (14-36) U/L Troponin I 0.093 H* 0.087 H* (0.000-0.034) ng/mL 05/04/23 Range/Units 21:21 AST (14-36) U/L Troponin I 0.087 H* (0.000-0.034) ng/mL Coagulation 05/04/23 Range/Units 12:02 PT 10.6 (9.0-12.0) sec APTT 26.2 (22.0-30.0) sec CBC 05/04/23 Range/Units 12:02 WBC 8.2 (3.8-10.6) k/uL RBC 4.19 (3.80-5.40) m/uL Hgb 12.9 (11.4-16.0) gm/dL Hct 37.7 (34.0-46.0) % Plt Count 167 (150-450) k/uL Comprehensive Metabolic Panel 05/04/23 Range/Units 12:02 Sodium 138 (137-145) mmol/L Potassium 4.5 (3.5-5.1) mmol/L Chloride 106 (98-107) mmol/L Carbon Dioxide 25 (22-30) mmol/L BUN 18 H (7-17) mg/dL Creatinine 1.12 H (0.52-1.04) mg/dL Glucose 126 H (74-99) mg/dL Calcium 9.0 (8.4-10.2) mg/dL AST 27 (14-36) U/L ALT 22 (4-34) U/L Alkaline Phosphatase 53 (38-126) U/L Total Protein 6.7 (6.3-8.2) g/dL Albumin 3.9 (3.5-5.0) g/dL Current Medications Generic Name Dose Route Start Last Admin Trade Name Freq PRN Reason Stop Dose Admin Apixaban 2.5 mg 05/04/23 21:00 05/04/23 22:14 Apixaban 2.5 Mg Tablet PO 2.5 mg BID DAMARIS Administration Protocol Aspirin 81 mg 05/05/23 09:00 Aspirin 81 Mg PO DAILY [facility] Clopidogrel Bisulfate 75 mg 05/05/23 09:00 Clopidogrel 75 Mg Tab PO DAILY [facility] Dextrose/Water 25 ml 05/04/23 14:34 Dextrose 50% Syringe 50 Ml IVP PER PROTOCOL PRN Hypoglycemia Protocol Dextrose/Water 50 ml 05/04/23 14:34 Dextrose 50% Syringe 50 Ml IVP PER PROTOCOL PRN Hypoglycemia Protocol Diltiazem HCl 125 mg/ Sodium 125 mls @ 5 mls/hr 05/04/23 11:45 05/04/23 12:07 Chloride IV 5 mg/hr .Q24H DAMARIS 5 mls/hr Administration 5 MG/HR Insulin Aspart 0 unit 05/04/23 17:30 05/04/23 20:41 Insulin Aspart (Novolog) 100 Unit/Ml Vial SQ Not Given ACHS [facility] Protocol Levothyroxine Sodium 150 mcg 05/05/23 09:00 Levothyroxine 75 Mcg Tab PO DAILY [facility] Metoprolol Tartrate 25 mg 05/04/23 16:00 05/04/23 22:16 Metoprolol Tartrate 25 Mg Tab PO 25 mg TID DAMARIS Administration Nitroglycerin 0.4 mg 05/04/23 14:13 Nitroglycerin Sl Tabs 0.4 Mg Tab SUBLINGUAL Q5M PRN Chest Pain Pravastatin Sodium 20 mg 05/04/23 21:00 05/04/23 22:14 Pravastatin Sodium 20 Mg Tab PO 20 mg HS DAMARIS Administration Intake and Output 05/04/23 05/04/23 05/05/23 14:59 22:59 06:59 Intake Total 120 Balance 120 Intake: Oral 120 Other: # Voids 3 Weight 118.841 kg 118.841 kg 114.5 kg Patient Weight 05/05/23 06:59 Weight 114.5 kg 05/04/23 12:02 05/04/23 12:02
[2023-05-05] MEDS: INSULIN ASPART (NovoLOG) 100 UNIT/ML VIAL SQ SCH ×4 (06:41→21:08)
[2023-05-05] MEDS: APIXABAN 2.5 MG TABLET PO SCH ×2 (08:20→21:09)
[2023-05-05] MEDS: CLOPIDOGREL 75 MG TAB PO SCH (08:21)
[2023-05-05] MEDS: ASPIRIN 81 MG PO SCH (08:21)
[2023-05-05] MEDS: LEVOTHYROXINE 75 MCG TAB PO SCH (08:21)
[2023-05-05] MEDS: METOPROLOL TARTRATE 25 MG TAB PO SCH ×3 (08:21→21:08)
[2023-05-05] MEDS ORDERED: ASPIRIN 325 MG TAB PO SCH (09:00)
[2023-05-05] MEDS: DILTIAZEM 125 MG in SODIUM CHLORIDE 0.9% 100 ML IV SCH (11:23)
[2023-05-05 11:27] LABS: Glucose,Whole Blood 116 mg/dL (70-110)
--- NOTE | 2023-05-05 13:08 | P.PN ---
Subjective Progress Note Date: 05/05/23 patient 72-year-old lady with past medical history significant for atrial fibrillation, coronary artery disease with recent stenting, hypertension who presented to the ER because of palpitations. Patient was discharged yesterday after undergoing successful stenting of the LAD. Patient has history of chronic A. fib, on Lopressor, stated that the time of discharge her heart rate was fast and her dose of Lopressor was increased to 3 times daily. Patient stated that on coming home she continued to feel that her heart was beating fast. Patient was complaining of shortness of breath on exertion, complaining of palpitation. Denied any chest pain. Denied any orthopnea or PND. Patient continues to have these symptoms throughout the night, his morning her daughter told her to come to the ER Initial lab work done in the ER showed WBC 8.2, hemoglobin 12.9, platelet count 167, sodium 1:30, potassium 4.5, BUN 18, creatinine 1.12 more troponin 0.093 EKG done in the ER showed regular rate 134, QRS 88, no ST segment elevation, no T-wave inversion, A. fib with RVR Chest x-ray done in the ER showed no acute cardiopulmonary process She was started on Cardizem drip and was admitted to medicine service 05/05. Patient seen and examined. Was placed back on Cardizem drip this morning, dose of Lopressor increased to 50 mg 3 times a day REVIEW OF SYSTEMS: CONSTITUTIONAL: No fever, no malaise,. CARDIOVASCULAR: No chest pain, no palpitations, no syncope. PULMONARY: No shortness of breath, no cough, GASTROINTESTINAL: No diarrhea, no nausea, no vomiting, no abdominal pain. NEUROLOGICAL: No headaches, no weakness, PHYSICAL EXAMINATION: GENERAL: The patient is alert and oriented x3, not in any acute distress. Well developed, well nourished. HEENT: Pupils are round and equally reacting to light. EOMI. No scleral icterus. No conjunctival pallor. Normocephalic, atraumatic. No pharyngeal erythema. No thyromegaly. CARDIOVASCULAR: S1 and S2 present. No murmurs, rubs, or gallops. PULMONARY: Chest is clear to auscultation, no wheezing or crackles. ABDOMEN: Soft, nontender, nondistended, normoactive bowel sounds. No palpable organomegaly. MUSCULOSKELETAL: No joint swelling or deformity. EXTREMITIES: No cyanosis, clubbing, or pedal edema. NEUROLOGICAL: Gross neurological examination did not reveal any focal deficits. SKIN: No rashes. Assessment and plan A. fib with RVR Coronary artery disease with recent stenting of LAD Hypertension Hyperlipidemia Rof-dauiszp-irvzlbuaq diabetes mellitus Monitor vital signs Monitor CBC Monitor CMP Lopressor increased to 50 mg 3 times daily Continue aspirin and Plavix Continue Eliquis Follow-up on cardiology recommendations Labs and medication were reviewed.. Continue same treatment. Continue with symptomatic treatment. Resume home medication. Monitor labs and vitals. DVT and GI prophylaxis. Further recommendations as per clinical course of the patient Dictation was produced using [employer] dictation software. please excuse any grammatical, word or spelling errors. Objective - Vital Signs Vital signs: Vital Signs Temp 97.5 F L 05/05/23 08:00 Pulse 125 H 05/05/23 08:00 Resp 16 05/05/23 08:00 BP 143/85 05/05/23 08:00 Pulse Ox 93 L 05/05/23 08:00 FiO2 Intake & Output 05/04/23 05/05/23 05/05/23 18:59 06:59 18:59 Intake Total 120 Balance 120 Weight 118.841 kg 114.5 kg Intake: Oral 120 Other: # Voids 3 - Labs CBC & Chem 7: 05/04/23 12:02 05/04/23 12:02 Labs: Abnormal Lab Results - Last 24 Hours (Table) 05/04/23 05/04/23 05/04/23 Range/Units 12:02 12:02 12:02 RDW 16.6 H (11.5-15.5) % BUN 18 H (7-17) mg/dL Creatinine 1.12 H (0.52-1.04) mg/dL Glucose 126 H (74-99) mg/dL POC Glucose (mg/dL) (70-110) mg/dL Troponin I 0.093 H* (0.000-0.034) ng/mL 05/04/23 05/04/23 05/04/23 Range/Units 16:50 16:55 21:04 RDW (11.5-15.5) % BUN (7-17) mg/dL Creatinine (0.52-1.04) mg/dL Glucose (74-99) mg/dL POC Glucose (mg/dL) 133 H 123 H (70-110) mg/dL Troponin I 0.087 H* (0.000-0.034) ng/mL 05/04/23 05/05/23 Range/Units 21:21 06:13 RDW (11.5-15.5) % BUN (7-17) mg/dL Creatinine (0.52-1.04) mg/dL Glucose (74-99) mg/dL POC Glucose (mg/dL) 134 H (70-110) mg/dL Troponin I 0.087 H* (0.000-0.034) ng/mL
[2023-05-05 14:05] LABS: Anisocytosis Slight; HCT 39.2 % (34.0-46.0); MCH 30.2 pg (25.0-35.0); MCHC 33.3 g/dL (31.0-37.0); MCV 90.7 fL (80.0-100.0); Mean Platelet Volume 7.8; Platelet Count 176 k/uL (150-450); Poikilocytosis Slight; RBC 4.32 m/uL (3.80-5.40); RDW 16.7 % (11.5-15.5); WBC 8.5 k/uL (3.8-10.6)
[2023-05-05 14:23] LABS: ALT 30 U/L (4-34); AST 31 U/L (14-36); African American GFR (CKD) 61 (>60 ml/min/1.73 sqM); Albumin 4.1 g/dL (3.5-5.0); Alkaline Phosphatase 64 U/L (38-126); Anion Gap 12 mmol/L; Blood Urea Nitrogen 13 mg/dL (7-17); Carbon Dioxide 22 mmol/L (22-30); Chloride 106 mmol/L (98-107); Glucose 102 mg/dL (74-99); Non-African American GFR(CKD) 53 (>60 ml/min/1.73 sqM); Potassium 4.3 mmol/L (3.5-5.1); Sodium 140 mmol/L (137-145); Total Bilirubin 0.8 mg/dL (0.2-1.3)
[2023-05-05 16:42] LABS: Glucose,Whole Blood 113 mg/dL (70-110)
[2023-05-05 19:59] LABS: Glucose,Whole Blood 179 mg/dL (70-110)
[2023-05-05] MEDS: PRAVASTATIN SODIUM 20 MG TAB PO SCH (21:09)
[2023-05-05 23:25] LABS: Chol/HDL Ratio 4.29 Ratio; LDL Cholesterol,Calculated 78.8 mg/dL (0.0-131.0)
[2023-05-06 03:20] VITALS: RESP 18
[2023-05-06 05:50] LABS: Glucose,Whole Blood 139 mg/dL (70-110)
[2023-05-06] MEDS: INSULIN ASPART (NovoLOG) 100 UNIT/ML VIAL SQ SCH ×2 (06:36→13:10)
[2023-05-06] MEDS ORDERED: METOPROLOL TARTRATE 25 MG TAB PO SCH (08:15)
[2023-05-06] MEDS: CLOPIDOGREL 75 MG TAB PO SCH (11:00)
[2023-05-06] MEDS: ASPIRIN 81 MG PO SCH (11:00)
[2023-05-06] MEDS: APIXABAN 2.5 MG TABLET PO SCH (11:00)
[2023-05-06] MEDS: LEVOTHYROXINE 75 MCG TAB PO SCH (11:01)
[2023-05-06 11:21] LABS: Glucose,Whole Blood 109 mg/dL (70-110)
[2023-05-06 12:24] VITALS: TEMP 97.5
--- NOTE | 2023-05-06 12:44 | P.PN ---
Subjective HISTORY OF PRESENT ILLNESS: The patient is a pleasant 72-year-old female patient who is known to our service from before. Dr. Galvan regularly with CAD status post a stenting of the LAD recently as well as paroxysmal atrial fibrillation as well as hypertension and dyslipidemia. The patient was seen by our service recently where she underwent a heart catheterization as a workup for ruling out severe CAD as a workup for her atrial fibrillation. The heart catheterization reviewed severe disease involving the mid LAD and the patient underwent stenting of the LAD with a good angiographic results and she was discharged the following day in stable medical condition. She presented back to the hospital because she noticed that her heart rate has been fast and above 100 bpm. She was asymptomatic into of heart racing or fluttering or dizziness or lightheadedness or presyncope or syncope and no symptoms of any chest pain or chest discomfort or shortness of breath or lower extremities edema. Her daughter brought the patient to the hospital because she was tachycardic and the EKG revealed atrial fibrillation with heart rate about 140 bpm. Subsequently she was started on Cardizem IV and her heart rate has improved significantly she stated that she has been compliant with the current dose of beta paz she was placed on which is metoprolol 25 mg by mouth 3 times a day. Also she has been compliant with the triple therapy including the aspirin and Plavix and oral anticoagulation. Currently the patient heart rate has been in the 80s and 90s and she is not on any IV medication beside metoprolol. She is asymptomatic. The EKG showed atrial fibrillation with RVR at the beginning. The rest of the workup came in to be overall unremarkable. The examination is remarkable for irregular rhythm with overall controlled heart rate and clear breathing sounds bilaterally and no lower extremity edema noted 05/06/2023 Patient examined this morning at the bedside. Patient denies chest pain or pressure. She denies shortness of breath. Telemetry reveals atrial fibrillation with a heart rate in the 80s. She remains on IV Cardizem. Vital signs are stable. PHYSICAL EXAM: VITAL SIGNS: Reviewed. GENERAL: Well-developed in no acute distress. NECK: Supple. No JVD or thyromegaly LUNGS: Respirations even and unlabored. Lungs essentially clear to auscultation bilaterally. HEART: Regular rate and rhythm. S1 and S2 heard. EXTREMITIES: Normal range of motion. No clubbing or cyanosis. Peripheral pulses intact. No lower extremity edema ASSESSMENT: Paroxysmal atrial fibrillation with RVR Coronary artery disease with previous stenting of the LAD History of ablation Hypertension Hyperlipidemia PLAN: Continue triple therapy Discontinue IV Cardizem Change metoprolol to 75 mg twice a day Continue telemetry monitoring Patient may be discharged home this afternoon if she remains stable Patient to follow-up post discharge Nurse practitioner note has been reviewed by physician. Signing provider agrees with the documented findings, assessment, and plan of care. Objective - Vital Signs Vital signs: Vital Signs Temp 97.5 F L 05/06/23 08:10 Pulse 82 05/06/23 08:10 Resp 18 05/06/23 08:00 BP 108/84 05/06/23 08:10 Pulse Ox 97 05/06/23 09:26 FiO2 Intake & Output 05/05/23 05/06/23 05/06/23 18:59 06:59 18:59 Intake Total 596.25 110 Balance 596.25 110 Intake: Intake, IV Titration 116.25 Amount Diltiazem 125 mg In 116.25 Sodium Chloride 0.9% 100 ml @ 5 MG/HR 5 mls/hr IV .Q24H [facility] Rx#:[id number] Oral 480 110 Other: Voiding Method Toilet Toilet # Voids 1 1 - Labs CBC & Chem 7: 05/05/23 12:12 05/05/23 12:12 Labs: Abnormal Lab Results - Last 24 Hours (Table) 05/05/23 05/05/23 05/05/23 Range/Units 12:12 12:12 16:40 RDW 16.7 H (11.5-15.5) % Creatinine 1.06 H (0.52-1.04) mg/dL Glucose 102 H (74-99) mg/dL POC Glucose (mg/dL) 113 H (70-110) mg/dL HDL Cholesterol 32.20 L (40.00-60.00) mg/dL 05/05/23 05/06/23 Range/Units 19:57 05:49 RDW (11.5-15.5) % Creatinine (0.52-1.04) mg/dL Glucose (74-99) mg/dL POC Glucose (mg/dL) 179 H 139 H (70-110) mg/dL HDL Cholesterol (40.00-60.00) mg/dL
[2023-05-06 16:40] VITALS: BP 128/71; PULSE 61
--- NOTE | 2023-05-07 09:33 | P.PN ---
Progress Note - Text Update on Zakiya Ruano In April 2021 she underwent successful ablation of the pulmonary veins with cryoablation She underwent an ablation of the left atrial roof Linear ablation in the range between the appendage and left-sided pulmonary veins Ablation of the posterior septum In March 2022 she underwent typical atrial flutter ablation This was a difficult ablation she had a large V-shaped isthmus. The entire isthmus was 1 week pouch and was V-shaped Successful ablation with complete bidirectional block with differential pacing was proven The echo showed mildly reduced LV systolic function ejection fraction 45% Coronary angiography revealed a 70% tubular mid LAD stenosis that corresponded to the findings of the stress test She underwent PCI of the LAD Thereafter she went back into atrial fibrillation/organized atrial tachycardia 1 EKG shows atrial fibrillation The other EKG shows organized atrial tachycardia Suggest Discussed with nurse practitioner Start amiodarone 400 mg by mouth daily then subsequently 200 mg daily, then subsequently 100 mg by mouth daily Increase beta blockers
--- NOTE | 2023-05-11 19:32 | P.DS ---
Providers Date of admission: 05/04/23 14:14 Expected date of discharge: 05/06/23 Attending physician: Keagan Mcfarland MD Consults: 05/04/23 14:14 Consult Physician Urgent Consulting Provider: [facility] Consult Reason/Comments: Atrial flutter with rapid ventricular response Do you want consulting provider notified?: Yes Primary care physician: Josselin Guerrero [facility] Course: Final diagnosis A. fib with RVR Coronary artery disease with recent stenting of LAD Hypertension Hyperlipidemia [id number] diabetes mellitus Obesity with bmi of 39.5 Discharge disposition Patient is being discharged in a stable condition with guarded prognosis to home. Patient will follow-up with Dr. Guerrero in the outpatient setting upon discharge. Patient is to follow-up with cardiology outpatient as scheduled. Medication adjustments made and patient will continue on oral anticoagulation along with Plavix and aspirin per cardiology. Total time taken is greater than 35 minutes. Hospital course This is a 72-year-old female who was recently admitted with feelings of palpitations along with chest pain. Patient was evaluated by cardiology with a fib RVR and adjustments in medications were made and patient will continue oral anticoagulation. Patient reports to feeling better and like to go home. Patient has been cleared by cardiology. Please refer to cardiology for further HPI. Patient to follow-up with Dr. Galvan at scheduled appointment in the a.m. as patient reports she has had scheduled. Currently no reports of chest pain, shortness of breath, or palpitations. Patient is afebrile. No reports of nausea or vomiting and patient is tolerating diet. Patient will be discharged home today. Physical exam: Gen: This is a 72-year-old female who is awake, alert and oriented 3, alert, well-nourished, obese HEENT: Head is atraumatic, normocephalic. Pupils equal, round. Sclerae is anicteric. NECK: Supple. No JVD. No lymphadenopathy. No thyromegaly. LUNGS: Clear to auscultation. No wheezes or rhonchi. No intercostal retractions. HEART: S1, S2 are muffled, irregular, currently rate controlled ABDOMEN: Soft. Obese. Bowel sounds are present. No masses. No tenderness. EXTREMITIES: No pedal edema. No calf tenderness. NEUROLOGICAL: Patient is awake, alert and oriented x3. Cranial nerves 2 through 12 are grossly intact. Please refer to medication reconciliation sheet for a list of medications. The impression and plan of care has been dictated by Galina Swann, Nurse Practitioner as directed. Dr. Magdalena MD I have performed a history and examination and MDM of this patient, discussed the same with the dictator, and agree with the dictator's assessment and plan as written ,documented as a scribe. Based on total visit time, I have performed more than 50% of the visit. Patient Condition at Discharge: Fair Plan - Discharge Summary Discharge Rx Participant: No New Discharge Prescriptions: New Metoprolol Tartrate [Lopressor] 75 mg PO BID 30 Days #180 tab Continue Ergocalciferol [Vitamin D2 (1250 Mcg = 62221 Iu)] 1,250 mcg PO TOAMS sitaGLIPtin PHOS/metFORMIN HCL [Janumet 50-500 mg Tablet] 1 tab PO DAILY Apixaban [Eliquis] 2.5 mg PO BID #60 tab Levothyroxine Sodium 150 mcg PO DAILY Clopidogrel [Plavix] 75 mg PO DAILY #90 tab Pravastatin Sodium [Pravachol] 20 mg PO HS #90 tab Aspirin 81 mg PO DAILY #0 Nitroglycerin Sl Tabs [Nitrostat] 0.4 mg SL Q5M PRN PRN Reason: Chest Pain Discontinued Metoprolol Tartrate 25 mg PO TID #270 tab Discharge Medication List Levothyroxine Sodium 150 mcg PO DAILY 07/04/21 [History] Ergocalciferol [Vitamin D2 (1250 Mcg = 15859 Iu)] 1,250 mcg PO TOMAS 11/27/22 [History] sitaGLIPtin PHOS/metFORMIN HCL [Janumet 50-500 mg Tablet] 1 tab PO DAILY 11/27/22 [History] Apixaban [Eliquis] 2.5 mg PO BID #60 tab 05/03/23 [Rx] Aspirin 81 mg PO DAILY #0 05/03/23 [Rx] Clopidogrel [Plavix] 75 mg PO DAILY #90 tab 05/03/23 [Rx] Pravastatin Sodium [Pravachol] 20 mg PO HS #90 tab 05/03/23 [Rx] Nitroglycerin Sl Tabs [Nitrostat] 0.4 mg SL Q5M PRN 05/04/23 [History] Metoprolol Tartrate [Lopressor] 75 mg PO BID 30 Days #180 tab 05/06/23 [Rx] Follow up Appointment(s)/Referral(s): Mane Galvan MD [STAFF PHYSICIAN] - 1-2 Days (keep scheduled appt. ) Josselin Guerrero MD [Primary Care Provider] - 1-2 days Activity/Diet/Wound Care/Special Instructions: Activity Limited until follow-up Follow-up with cardiology at your scheduled appointment tomorrow Continue current medications as prescribed Discharge Disposition: HOME SELF-CARE
== END 2023-05-06 15:13 | disposition home or self-care (01) | DRG 310 ==
LOC: EC 10:57 → 3SCARD 14:14
PROVIDERS: ADMIT Internal Medicine; ATTEND Internal Medicine
DX: I48.0 Paroxysmal atrial fibrillation (principal); E11.9 Type 2 diabetes mellitus without complications; I25.10 Atherosclerotic heart disease of native coronary artery without angina pectoris; I47.1 Supraventricular tachycardia; I48.3 Typical atrial flutter; I10 Essential (primary) hypertension; Z95.5 Presence of coronary angioplasty implant and graft; E78.5 Hyperlipidemia, unspecified; Z79.01 Long term (current) use of anticoagulants; Z79.82 Long term (current) use of aspirin; Z79.02 Long term (current) use of antithrombotics/antiplatelets; Z79.84 Long term (current) use of oral hypoglycemic drugs; Z79.899 Other long term (current) drug therapy; Z79.890 Hormone replacement therapy; Z87.891 Personal history of nicotine dependence
CPT/HCPCS: 36415; 71046; 80053; 80061; 83036; 83735; 84484; 85025; 85027; 85610; 85730; 93005; 94760; 96361; 96365; 96366; 96375; 99291

== ENCOUNTER 2023-06-26 06:28 | Day surgery (SDC) | payer MEDICARE ==
[~2023-06-26 06:28] MED LIST changes: -LACTATED RINGERS 1,000 ML IV SCH; +SODIUM CHLORIDE 0.9% 1,000 ML IV SCH
[2023-06-26] MEDS ORDERED: SODIUM CHLORIDE 0.9% 500 ML 500 ML IV ONE (07:01)
[2023-06-26 07:12] LABS: Anisocytosis Slight; Basophils # (A) 0.1 k/uL (0-0.2); Basophils % (A) 1 %; Eosinophils # (A) 0.3 k/uL (0-0.7); Eosinophils % (A) 4 %; HGB 14.9 gm/dL (11.4-16.0); Lymphocytes # (A) 1.7 k/uL (1.0-4.8); Lymphocytes % (A) 22 %; MCH 29.6 pg (25.0-35.0); MCHC 32.3 g/dL (31.0-37.0); MCV 91.5 fL (80.0-100.0); Mean Platelet Volume 7.6; Monocytes # (A) 0.5 k/uL (0-1.0); Monocytes % (A) 6 %; Neutrophils % (A) 66 %; Platelet Count 181 k/uL (150-450); RBC 5.03 m/uL (3.80-5.40); RDW 16.4 % (11.5-15.5); WBC 7.7 k/uL (3.8-10.6)
[2023-06-26 07:15] LABS: Glucose,Whole Blood 127 mg/dL (70-110)
[2023-06-26 07:19] VITALS: RESP 16; TEMP 100
[2023-06-26 07:29] LABS: ALT 23 U/L (4-34); AST 27 U/L (14-36); African American GFR (CKD) 39 (>60 ml/min/1.73 sqM); Albumin 4.6 g/dL (3.5-5.0); Alkaline Phosphatase 52 U/L (38-126); Anion Gap 14 mmol/L; Blood Urea Nitrogen 19 mg/dL (7-17); Calcium 9.3 mg/dL (8.4-10.2); Carbon Dioxide 22 mmol/L (22-30); Chloride 105 mmol/L (98-107); Glucose 139 mg/dL (74-99); Non-African American GFR(CKD) 34 (>60 ml/min/1.73 sqM); Potassium 4.3 mmol/L (3.5-5.1); Sodium 141 mmol/L (137-145); Total Bilirubin 0.8 mg/dL (0.2-1.3); Total Protein 7.5 g/dL (6.3-8.2)
[2023-06-26] MEDS ORDERED: OXYMETAZOLINE 0.05% NASL SPRAY 1 SPRAY BOTTLE NASAL STA (09:29)
[2023-06-26] MEDS ORDERED: PROPOFOL 10 MG/ML 20 ML VIAL IV ONE (09:30)
--- NOTE | 2023-06-26 10:01 | P.HPCAR ---
History of Present Illness This is Dr. Galvan dictating an H/P on this patient The patient was interviewed and examined IMPRESSION / ASSESSMENT: 72-year-old female with recurrent persistent atrial fibrillation History of A. fib ablation and atrial tachycardia ablation History of nonischemic cardio myopathy Coronary artery disease with a 30% left main and a 70% mid LAD stenosis and a 30% RCA stenosis Stenting to the mid LAD Develops and dramatic atrial fibrillation again following that Loaded with oral amiodarone 400 mg daily for one month and brought in for electrical cardioversion Instructed to increase ELIQUIS 2.5 mg twice daily Developed nosebleeds, right nostril starting this morning TSH 8.4 PLAN: Electrical cardioversion today Afrin spray and pressure to the left nostril, outpatient ENT evaluation, she has an appointment scheduled in July Go down to 2.5 mg twice daily for ELIQUIS but continue Plavix Reduce metoprolol to 50 mg by mouth daily, long-acting continue amiodarone 200 mg daily Check lipid panel today, added onto a.m. sample Increase Pravachol to 40 mg by mouth daily Increase levothyroxine dose. She is already taking 150 g by mouth daily. Will add at 25 g by mouth Recheck TSH in 6-8 weeks but continue amiodarone HPI Patient remains in atrial fibrillation with a controlled response on oral amiodarone Today her TSH is mildly elevated on oral amiodarone 200 mg daily She also developed a nosebleed this morning This was treated with compression and then Afrin nasal spray for ENT We have asked her to increase her dose of ELIQUIS 5 g twice daily and she is already on Plavix because she has had coronary stenting recently to the mid LAD ROS: No fever chills or rigors, no cough, phlegm or expectoration, no nausea, vomiting or diarrhea, no hematuria, dysuria, no musculoskeletal complaints, no strokes or seizures, no skin lesions. EXAMINATION: Temperature 100F, blood pressure 196/86 Pulse rate in the 80s irregular Breath sounds are clear no rhonchi no crackles Heart sounds S1 and S2 are normal irregular no murmurs REVIEW OF LABS, ECG & MEDICAL DATA Sodium 141, potassium 4.3 BUN 19 and creatinine 1.54 Normal LFT TSH 8.4 Hemoglobin 14.9 Physical Exam Vitals: Vital Signs Temp Pulse Resp BP Pulse Ox 06/26/23 07:10 100 F H 81 16 196/86 95 Intake and Output 06/25/23 06/26/23 06/26/23 22:59 06:59 14:59 Intake Total 150 Balance 150 Intake: IV 150 Other: Weight 114.5 kg 114.5 kg Past Medical History Past Medical History: Atrial Fibrillation, Diabetes Mellitus, GERD/Reflux, Hyperlipidemia, Thyroid Disorder Additional Past Medical History / Comment(s): stress test 6 weeks ago. SOB w/exertion, see Dr Galvan H&P History of Any Multi-Drug Resistant Organisms: None Reported Past Surgical History: Ablation, Breast Surgery, Cardiac Ablation, Heart Catheterization With Stent, Tubal Ligation Additional Past Surgical History / Comment(s): lumpectomy right breast, CARDIOVERSION, COLONOSCOPY, ablation x3, heart cath with 2 stents 05/02/23 Past Anesthesia/Blood Transfusion Reactions: No Reported Reaction Date of Last Stent Placement:: 05/02/2023 Smoking Status: Former smoker - Past Family History Mother Family Medical History: COPD Father Additional Family Medical History / Comment(s): cerebral hemorrhage. Sister(s) Family Medical History: Cancer Physical Examination Vital Signs Temp Pulse Resp BP Pulse Ox 06/26/23 07:10 100 F H 81 16 196/86 95 Intake and Output 06/25/23 06/26/23 06/26/23 22:59 06:59 14:59 Intake Total 150 Balance 150 Intake: IV 150 Other: Weight 114.5 kg 114.5 kg Results 06/26/23 06:53 06/26/23 06:53 Cardiac Enzymes 06/26/23 Range/Units 06:53 AST 27 (14-36) U/L CBC 06/26/23 Range/Units 06:53 WBC 7.7 (3.8-10.6) k/uL RBC 5.03 (3.80-5.40) m/uL Hgb 14.9 (11.4-16.0) gm/dL Hct 46.0 (34.0-46.0) % Plt Count 181 (150-450) k/uL Comprehensive Metabolic Panel 06/26/23 Range/Units 06:53 Sodium 141 (137-145) mmol/L Potassium 4.3 (3.5-5.1) mmol/L Chloride 105 (98-107) mmol/L Carbon Dioxide 22 (22-30) mmol/L BUN 19 H (7-17) mg/dL Creatinine 1.54 H (0.52-1.04) mg/dL Glucose 139 H (74-99) mg/dL Calcium 9.3 (8.4-10.2) mg/dL AST 27 (14-36) U/L ALT 23 (4-34) U/L Alkaline Phosphatase 52 (38-126) U/L Total Protein 7.5 (6.3-8.2) g/dL Albumin 4.6 (3.5-5.0) g/dL Current Medications Generic Name Dose Route Start Last Admin Trade Name Freq PRN Reason Stop Dose Admin Sodium Chloride 1,000 mls @ 20 mls/hr 06/26/23 05:54 Saline 0.9% IV 07/26/23 05:55 .Q24H DAMARIS Levothyroxine Sodium 25 mcg 06/27/23 06:30 Levothyroxine 25 Mcg Tab PO 07/27/23 06:31 DAILY@0630 DAMARIS Intake and Output 06/25/23 06/26/23 06/26/23 22:59 06:59 14:59 Intake Total 150 Balance 150 Intake: IV 150 Other: Weight 114.5 kg 114.5 kg Patient Weight 06/27/23 06:59 Weight 114.5 kg 06/26/23 06:53 06/26/23 06:53
--- NOTE | 2023-06-26 10:08 | P.EPPROC ---
- EP Procedure Note Electrophysiology Procedure Note: Diagnosis Persistent symptomatic atrial fibrillation following coronary stenting to the LAD Patient on oral amiodarone, 400 mg daily for a month and then 200 mg daily Details Successful electrical cardioversion with a 200 J shock in the AP configuration to sinus rhythm/sinus bradycardia in the 50s Plan Reduce the dose of metoprolol succinate 50 mg once daily ELIQUIS 2.5 g twice daily Plavix 75 mg daily Pravachol 40 mg daily Increase dose of levothyroxine to a total of 175 g daily. She takes 150 mrem daily right now. An additional 25 g of be added Holter monitor for 2 weeks after about a month Follow-up with Dr. Galvan in 8 weeks
[2023-06-26 11:00] VITALS: BP 145/74; PULSE 55
[2023-06-27 03:28] LABS: Chol/HDL Ratio 2.88 Ratio; LDL Cholesterol,Calculated 69.1 mg/dL (0.0-131.0)
[2023-06-27] MEDS ORDERED: LEVOTHYROXINE 25 MCG TAB PO SCH (06:30)
== END 2023-06-26 11:02 | disposition home or self-care (01) ==
LOC: CATHEP 06:28
PROVIDERS: ATTEND Internal Medicine Clinical Cardiac Electrophysiology
DX: I48.0 Paroxysmal atrial fibrillation (principal); I25.10 Atherosclerotic heart disease of native coronary artery without angina pectoris; I48.19 Other persistent atrial fibrillation; Z95.5 Presence of coronary angioplasty implant and graft; Z79.01 Long term (current) use of anticoagulants; Z79.899 Other long term (current) drug therapy; E11.9 Type 2 diabetes mellitus without complications; K21.9 Gastro-esophageal reflux disease without esophagitis; E78.5 Hyperlipidemia, unspecified; E07.9 Disorder of thyroid, unspecified; Z98.890 Other specified postprocedural states; Z87.891 Personal history of nicotine dependence; Z82.49 Family history of ischemic heart disease and other diseases of the circulatory system
CPT/HCPCS: 92960 ×2; 80061; 80053; 84443; 85025; J2704

== ENCOUNTER 2024-10-11 06:29 | Inpatient (IN) | payer MEDICARE ==
--- NOTE | 2024-10-11 06:57 | ED ---
Chest Pain HPI - General Chief Complaint: Chest Pain Stated Complaint: Chest pain Time Seen by Provider: 10/11/24 06:36 Source: patient, RN notes reviewed, old records reviewed Mode of arrival: wheelchair Limitations: no limitations - History of Present Illness Initial Comments: 73-year-old female presented to ER for evaluation of chest pressure. Patient states around 2 AM this morning she started to experience a heaviness sensation in her chest. She denies any radiation of this pain. Patient does admit to shortness of breath but states this is typical for her. Denies any peripheral edema, fevers, cough, congestion. Patient reports she took 2 Tums without relief which prompted her visit to the ER. Patient does have an extensive cardiac history with multiple cardioversions and ablations due to atrial fibrillation. She is currently taking Eliquis and Plavix. Patient also reports 2 cardiac stents and follows up with . Upon my evaluation, patient reporting she feels better. No other complaints. - Related Data Home Medications Medication Instructions Recorded Confirmed Levothyroxine Sodium 150 mcg PO DAILY 07/04/21 06/26/23 Ergocalciferol [Vitamin D2 (1250 1,250 mcg PO TOMAS 11/27/22 06/26/23 Mcg = 76093 Iu)] sitaGLIPtin PHOS/metFORMIN HCL 1 tab PO DAILY 11/27/22 06/21/23 [Janumet 50-500 mg Tablet] Nitroglycerin Sl Tabs [Nitrostat] 0.4 mg SL Q5M PRN 05/04/23 06/26/23 Amiodarone HCl [Pacerone] 200 mg PO DAILY 06/21/23 06/21/23 Apixaban [Eliquis] 5 mg PO BID 06/21/23 06/26/23 Levothyroxine Sodium 25 mcg PO DAILY 06/26/23 06/26/23 Previous Rx's Medication Instructions Recorded Clopidogrel [Plavix] 75 mg PO DAILY #90 tab 05/03/23 Levothyroxine Sodium 25 mcg PO DAILY #90 tablet 06/26/23 Metoprolol Succinate [Toprol XL] 50 mg PO DAILY #90 tab 06/26/23 Pravastatin Sodium [Pravachol] 40 mg PO DAILY #90 tab 06/26/23 Allergies Allergy/AdvReac Type Severity Reaction Status Date / Time No Known Allergies Allergy Verified 10/11/24 06:35 Review of Systems ROS Statement: Those systems with pertinent positive or pertinent negative responses have been documented in the HPI. ROS Other: All systems not noted in ROS Statement are negative. EKG Findings - EKG Comments: EKG Findings:: EKG taken at 6: 45 showing a sinus rhythm with an occasional PVC. No ST segment elevations or depressions or T wave inversions. Ventricular rate 67, HI interval 169, QRS duration 96, QT/QTc 429/444. Past Medical History Past Medical History: Atrial Fibrillation, Diabetes Mellitus, GERD/Reflux, Hyperlipidemia, Thyroid Disorder Additional Past Medical History / Comment(s): stress test 6 weeks ago. SOB w/exertion, see Dr Galvan H&P History of Any Multi-Drug Resistant Organisms: None Reported Past Surgical History: Ablation, Breast Surgery, Cardiac Ablation, Heart Catheterization With Stent, Tubal Ligation Additional Past Surgical History / Comment(s): lumpectomy right breast, CARDIOVERSION, COLONOSCOPY, ablation x3, heart cath with 2 stents 05/02/23 Past Anesthesia/Blood Transfusion Reactions: No Reported Reaction Date of Last Stent Placement:: 05/02/2023 Past Psychological History: No Psychological Hx Reported Smoking Status: Former smoker Past Alcohol Use History: None Reported Past Drug Use History: None Reported - Past Family History Mother Family Medical History: COPD Father Additional Family Medical History / Comment(s): cerebral hemorrhage. Sister(s) Family Medical History: Cancer General Exam Limitations: no limitations General appearance: alert, in no apparent distress Respiratory exam: Present: normal lung sounds bilaterally. Absent: respiratory distress, wheezes, rales, rhonchi, stridor Cardiovascular Exam: Present: regular rate, normal rhythm, normal heart sounds. Absent: systolic murmur, diastolic murmur, rubs, gallop, clicks Extremities exam: Present: normal inspection, full ROM, normal capillary refill. Absent: tenderness, pedal edema, joint swelling, calf tenderness Neurological exam: Present: alert, oriented X3, CN II-XII intact Skin exam: Present: warm, dry, intact, normal color. Absent: rash Course Vital Signs 10/11/24 06:30 Temperature 97.7 F Pulse Rate 79 Respiratory 18 Rate Blood Pressure 184/71 O2 Sat by Pulse 98 Oximetry - Reevaluation(s) Reevaluation #1: 10/11/24 08:03 Case discussed with Galina WILLIAMSON, for admission. Chest Pain MDM - MDM Was pt. sent in by a medical professional or institution (, PA, COVER STITCH MACHINE OPERATOR, urgent care, hospital, or residential...) When possible be specific @ -No Did you speak to anyone other than the patient for history (EMS, parent, family, police, friend...)? What history was obtained from this source @ -No Did you review nursing and triage notes (agree or disagree)? Why? @ -I reviewed and agree with nursing and triage notes Were old charts reviewed (outside hosp., previous admission, EMS record, old EKG, old radiological studies, urgent care reports/EKG's, residential records)? Report findings @ -No old charts were reviewed Differential Diagnosis (chest pain, altered mental status, abdominal pain women, abdominal pain men, vaginal bleeding, weakness, fever, dyspnea, syncope, headache, dizziness, GI bleed, back pain, seizure, CVA, palpatations, mental health, musculoskeletal)? @ -[Differential Chest Pain:Stable Angina, Unstable Angina, STEMI, NSTEMI Aortic Dissection, Pneumothorax, Musculoskeletal, Esophageal Spasm GERD, Cholecystitis, Pancreatitis, Zoster, this is not meant to be an all-inclusive list. EKG interpreted by me (3pts min.). @ -As above X-rays interpreted by me (1pt min.). @ -CXR interpreted by me concerning of a right middle lobe opacity CT interpreted by me (1pt min.). @ -None done U/S interpreted by me (1pt. min.). @ -None done What testing was considered but not performed or refused? (CT, X-rays, U/S, labs)? Why? @ -None What meds were considered but not given or refused? Why? @ -None Did you discuss the management of the patient with other professionals (prof bins i.e. , PA, COVER STITCH MACHINE OPERATOR, lab, RT, psych nurse, social services designee, clean energy policy analyst, teacher, fire prevention officer, telehealth case manager)? Give summary @ -Case discussed with Galina WILLIAMSON for admission. Was smoking cessation discussed for >3mins.? @ -No Was critical care preformed (if so, how long)? @ -No Were there social determinants of health that impacted care today? How? (Homelessness, low income, unemployed, alcoholism, drug addiction, transportation, low edu. Level, literacy, decrease access to med. care, senior care, rehab)? @ -No Was there de-escalation of care discussed even if they declined (Discuss DNR or withdrawal of care, Hospice)? DNR status @ -No What co-morbidities impacted this encounter? (DM, HTN, Smoking, COPD, CAD, Cancer, CVA, ARF, Chemo, Hep., AIDS, mental health diagnosis, sleep apnea, morbid obesity)? @ -History of A-fib on Eliquis and Plavix,Diabetes mellitus, hyperlipidemia, hypertension, thyroid disorder Was patient admitted / discharged? Hospital course, mention meds given and route, prescriptions, significant lab abnormalities, going to OR and other pertinent info. @ -Admitted. 73-year-old female presented the ER for evaluation of chest discomfort. Upon rooming, history and physical exam completed. Vitals within acceptable limits. Patient in no signs of acute distress reporting that she "feels better". Cardiac workup will be obtained, patient is agreeable. Initial troponin undetectable. EKG showed a normal sinus rhythm with occasional PVCs. CXR showing interstitial opacity concerning of pneumonia versus pulmonary vascular congestion. Given patient's white count of 11.9 patient will be started on azithromycin and Rocephin for possible pneumonia, blood cultures obtained. Admission considered and discussed with Galina WILLIAMSON, for cardiac rule out given patient's extensive cardiac history and HEART score 5. Cardiology on consult. BNP, procalcitonin, cephid pending at time of admission. Patient is agreeable for admission. Case discussed with ED attending, Dr. San. Undiagnosed new problem with uncertain prognosis? @ -No Drug Therapy requiring intensive monitoring for toxicity (Heparin, Nitro, Insulin, Cardizem)? @ -No Were any procedures done? @ -No Diagnosis/symptom? @ -Chest pain/pneumonia v. pulmonary vascular congestion Acute, or Chronic, or Acute on Chronic? @ -Acute Uncomplicated (without systemic symptoms) or Complicated (systemic symptoms)? @ -Complicated Side effects of treatment? @ -No Exacerbation, Progression, or Severe Exacerbation? @ -No Poses a threat to life or bodily function? How? (Chest pain, [place], [place], pneumonia, PE, COPD, DKA, ARF, appy, cholecystitis, CVA, Diverticulitis, Homicidal, Suicidal, threat to staff... and all critical care pts) @ -Yes, chest pain can be ACS which can lead to lethal cardiac arrhythmias Disposition Clinical Impression: Chest pain Disposition: ADMITTED IP TO THIS HOSP Condition: Stable Referrals: Josselin Guerrero MD [Primary Care Provider] - 1-2 days Time of Disposition: 08:02
[2024-10-11 07:15] LABS: Anisocytosis Slight; Basophils % (A) 0 %; Eosinophils # (A) 0.1 k/uL (0-0.7); Eosinophils % (A) 1 %; HCT 38.6 % (34.0-46.0); HGB 12.9 gm/dL (11.4-16.0); Lymphocytes # (A) 1.2 k/uL (1.0-4.8); Lymphocytes % (A) 10 %; MCH 28.8 pg (25.0-35.0); MCHC 33.4 g/dL (31.0-37.0); MCV 86.1 fL (80.0-100.0); Mean Platelet Volume 7.7; Monocytes # (A) 0.5 k/uL (0-1.0); Monocytes % (A) 4 %; Neutrophils % (A) 83 %; Platelet Count 157 k/uL (150-450); Poikilocytosis Slight; RBC 4.48 m/uL (3.80-5.40); RDW 17.3 % (11.5-15.5); WBC 11.9 k/uL (3.8-10.6)
--- NOTE | 2024-10-11 07:20 | XR ---
Chest, 2 view. HISTORY: Chest pain COMPARISON: 05/04/2023 TECHNIQUE: PA and lateral views the chest are obtained. FINDINGS: There has been interval development of mild diffuse interstitial opacity. The heart size is normal. There is no pleural effusion or pneumothorax. There is no airspace consolidation. The osseous structures are intact. IMPRESSION: Interval development of mild diffuse interstitial opacity reflecting either mild pulmonary vascular c ongestion or interstitial inflammation/pneumonia. [facility], , 10/11/2024 7:18 AM
[2024-10-11 07:28] LABS: AST 27 U/L (14-36); African American GFR (CKD) 49 (>60 ml/min/1.73 sqM); Albumin 4.7 g/dL (3.5-5.0); Alkaline Phosphatase 59 U/L (38-126); Anion Gap 15 mmol/L; Blood Urea Nitrogen 17 mg/dL (7-17); Calcium 9.9 mg/dL (8.4-10.2); Carbon Dioxide 24 mmol/L (22-30); Chloride 100 mmol/L (98-107); Glucose 151 mg/dL (74-99); Magnesium 1.9 mg/dL (1.6-2.3); Non-African American GFR(CKD) 43 (>60 ml/min/1.73 sqM); Potassium 3.9 mmol/L (3.5-5.1); Sodium 139 mmol/L (137-145); Total Bilirubin 0.8 mg/dL (0.2-1.3); Total Protein 7.2 g/dL (6.3-8.2)
[2024-10-11 07:34] LABS: Partial Thromboplastin Time 24.7 sec (22.0-30.0); Prothrombin Time 10.7 sec (10.0-12.5)
[2024-10-11 07:36] LABS: ALT 29 U/L (4-34)
[2024-10-11] MEDS ORDERED: NALOXONE 0.4 MG/ML 1 ML VIAL IV PRN (08:01)
[2024-10-11] MEDS ORDERED: ACETAMINOPHEN TAB 325 MG TAB PO PRN (08:01)
[2024-10-11] MEDS: SODIUM CHLORIDE 0.9% 1,000 ML IV SCH (08:18)
[2024-10-11] MEDS: SODIUM CHLORIDE 0.9% 500 ML 500 ML IV STA (08:29)
[2024-10-11] MEDS: AZITHROMYCIN 500 MG TAB PO STA (08:29)
[2024-10-11 09:11] LABS: Influenza A Not Detected (Not Detectd); Influenza B Not Detected (Not Detectd); RSV Not Detected (Not Detectd)
[2024-10-11] MEDS ORDERED: PNEUMONIA PROTOCOL UTILIZED 1 EACH MISC PO PRN (09:19)
[2024-10-11] MEDS ORDERED: DEXTROSE 50% SYRINGE 50 ML IVP PRN ×2 (09:22)
[2024-10-11] MEDS: METOPROLOL SUCCINATE (ER) 50 MG TAB.ER.24H PO SCH (09:50)
[2024-10-11] MEDS: CLOPIDOGREL 75 MG TAB PO SCH (09:50)
[2024-10-11] MEDS: AMIODARONE 100 MG TAB PO SCH (09:50)
[2024-10-11] MEDS: LEVOTHYROXINE 75 MCG TAB PO SCH (09:50)
[2024-10-11] MEDS: APIXABAN 5 MG TAB PO SCH (09:51)
[2024-10-11 11:46] LABS: Glucose,Whole Blood 185 mg/dL (70-110)
[2024-10-11] MEDS: INSULIN ASPART (NovoLOG) 100 UNIT/ML VIAL SQ SCH (11:56)
[2024-10-11] MEDS ORDERED: CAFFEINE CITRATE 60 MG/3 ML VIAL IV PRN (12:09)
[2024-10-11] MEDS ORDERED: AMINOPHYLLINE 500 MG/20 ML VIAL IV PRN (12:09)
--- NOTE | 2024-10-11 12:11 | P.CRDCN ---
History of Present Illness Consult date: 10/11/24 Consult reason: chest pain History of present illness: This is a 73-year-old female patient of Dr. Galvan with past medical history of atrial fibrillation status post pulmonary vein isolation, nonischemic cardiomyopathy, hypothyroidism, atrial tachycardia refractory to ablation, history of tobacco use and dependence. We have been asked to evaluate the patient for chest pain. Patient states that she developed chest pressure but not pain. She initially thought she had gas and was trying to belch but this would not happen. She was feeling a little bit better for a while and then she ate half a sandwich and then she had the sensation again that she needed to belch. She states she has had some shortness of breath but she states this is chronic and she has this with any type of exertion. Blood pressure 164/79, heart rate 58, pulse ox 97% on room air. Patient is status post 500 cc bolus of IV fluid as well as antibiotics and has been resumed on her home cardiac medications. Patient is seen today in the emergency center waiting for a bed on the observation unit. On 09/11/2024 with plan for 3-day Holter monitor, nuclear stress testing prior to hip replacement surgery and follow-up in 9 months. -EKG: Sinus rhythm occasional PVCs. -Chest x-ray: Interval development of mild diffuse interstitial opacity reflecting either mild pulmonary vascular congestion or interstitial inflammation or pneumonia. -Laboratory studies: WBC 11.9, hemoglobin 12.9. Electrolytes are normal, BUN 17 creatinine 1.26. Lactic acid 1.8. Magnesium 1.9. Liver function test are normal. Troponins are negative x 2. C-reactive protein less than 0.5, proBNP 477. Cepheid viral panel negative. -Home cardiac medications: Amiodarone 100 mg daily, Eliquis 5 mg twice daily, Plavix 75 mg daily, Toprol XL 50 mg daily, pravastatin 20 mg at bedtime. Rick connor is also on levothyroxine. -Cardiac catheterization performed 05/02/2023 revealed a 70% calcific tubular mid LAD stenosis and underwent PCI of the LAD. -Echocardiogram performed 03/16/2022 reveals EF 50%. -Lexiscan Cardiolite stress test performed 04/15/2023 in the office revealed inconclusive EKG part of the stress test due to baseline EKG abnormalities. Abnormal nuclear scan showing reversible perfusion defect in the LAD distribution. -Ambulatory electrocardiogram for 3 days completed 08/20/2023 revealed sinus rhythm heart rates between 51 and 95 with average of 61 bpm. 72 episodes of no nsustained atrial tachycardia. 4% PVC burden and 2% PAC burden. Review Of Systems: At the time of my exam: CONSTITUTIONAL: Denies fever or chills. HEENT: Denies blurred vision, vision changes, or eye pain. Denies hemoptysis CARDIOVASCULAR: Denies chest pain. Denies orthopnea. Denies PND. Denies p alpitations RESPIRATORY: Denies shortness of breath. GASTROINTESTINAL: Denies abdominal pain. Denies nausea or vomiting. HEMATOLOGIC: Denies bleeding disorders. GENITOURINARY: Denies any blood in urine. SKIN: Denies puritis. Denies rash. Physical examination: Gen: This is a 73-year-old obese female in no acute distress patient was last seen in the office VS: reviewed HEENT: Head is atraumatic, normocephalic. Pupils equal, round. Sclerae is anicteric. NECK: Supple. No JVD. LUNGS: Clear to auscultation. No wheezes or rhonchi. No intercostal retractions. HEART: Regular rate and rhythm. No murmur. ABDOMEN: Soft No tenderness. EXTREMITIES: No pedal edema. No calf tenderness. NEUROLOGICAL: Patient is awake, alert and oriented x3. Assessment: Atypical chest pain, acute coronary syndrome ruled out CAD with prior stenting of the LAD in 2022 Persistent atrial fibrillation status post pulmonary vein ablation, currently in a sinus rhythm Nonischemic cardiomyopathy Hypothyroidism History of atrial tachycardia refractory to ablation Remote history of tobacco use and dependence Morbid obesity with BMI of 40 Plan: Resume patient's home cardiac medications Schedule patient for Lexiscan Cardiolite stress test in the morning N.p.o. after midnight Obtain 2-D echocardiogram and Doppler study to assess cardiac structure and function If Lexiscan stress test is abnormal, patient will be scheduled for cardiac catheterization. Further recommendations to follow based upon clinical course Thank you kindly for this consultation. Nurse practitioner note has been reviewed, I agree with documented findings and plan of care. Patient was seen and examined. Past Medical History Past Medical History: Atrial Fibrillation, Diabetes Mellitus, GERD/Reflux, Hyperlipidemia, Thyroid Disorder Additional Past Medical History / Comment(s): stress test 6 weeks ago. SOB w/exertion, see Dr Galvan H&P History of Any Multi-Drug Resistant Organisms: None Reported Past Surgical History: Ablation, Breast Surgery, Cardiac Ablation, Heart Catheterization With Stent, Tubal Ligation Additional Past Surgical History / Comment(s): lumpectomy right breast, CARDIOVERSION, COLONOSCOPY, ablation x3, heart cath with 2 stents 05/02/23 Past Anesthesia/Blood Transfusion Reactions: No Reported Reaction Date of Last Stent Placement:: 05/02/2023 Past Psychological History: No Psychological Hx Reported Smoking Status: Former smoker Past Alcohol Use History: None Reported Past Drug Use History: None Reported - Past Family History Mother Family Medical History: COPD Father Additional Family Medical History / Comment(s): cerebral hemorrhage. Sister(s) Family Medical History: Cancer Medications and Allergies Home Medications Medication Instructions Recorded Confirmed Type Levothyroxine Sodium 150 mcg PO DAILY 07/04/21 10/11/24 History Ergocalciferol [Vitamin D2 (1250 1,250 mcg PO TOMAS 11/27/22 10/11/24 History Mcg = 14788 Iu)] Clopidogrel [Plavix] 75 mg PO DAILY #90 tab 05/03/23 10/11/24 Rx Amiodarone HCl [Pacerone] 100 mg PO DAILY 06/21/23 10/11/24 History Apixaban [Eliquis] 5 mg PO BID 06/21/23 10/11/24 History Metoprolol Succinate [Toprol XL] 50 mg PO DAILY #90 tab 06/26/23 10/11/24 Rx Numaqula Areds 2 1 tab PO DAILY 10/11/24 10/11/24 History Pravastatin Sodium [Pravachol] 20 mg PO HS 10/11/24 10/11/24 History sitaGLIPtin PHOS/metFORMIN HCL 1 tab PO DAILY 10/11/24 10/11/24 History [Janumet Xr 50-500 mg Tablet] Allergies Allergy/AdvReac Type Severity Reaction Status Date / Time No Known Allergies Allergy Verified 10/11/24 09:03 Physical Exam Vitals: Vital Signs Temp Pulse Resp BP Pulse Ox 10/11/24 09:12 97.8 F 56 L 18 146/71 96 10/11/24 06:30 97.7 F 79 18 184/71 98 Intake and Output 10/10/24 10/11/24 10/11/24 22:59 06:59 14:59 Other: Weight 117.934 kg Results 10/11/24 06:51 10/11/24 06:51 Cardiac Enzymes 10/11/24 10/11/24 Range/Units 06:51 06:51 AST 27 (14-36) U/L Troponin I <0.012 (0.000-0.034) ng/mL Coagulation 10/11/24 Range/Units 06:51 PT 10.7 (10.0-12.5) sec APTT 24.7 (22.0-30.0) sec CBC 10/11/24 Range/Units 06:51 WBC 11.9 H (3.8-10.6) k/uL RBC 4.48 (3.80-5.40) m/uL Hgb 12.9 (11.4-16.0) gm/dL Hct 38.6 (34.0-46.0) % Plt Count 157 (150-450) k/uL Comprehensive Metabolic Panel 10/11/24 Range/Units 06:51 Sodium 139 (137-145) mmol/L Potassium 3.9 (3.5-5.1) mmol/L Chloride 100 (98-107) mmol/L Carbon Dioxide 24 (22-30) mmol/L BUN 17 (7-17) mg/dL Creatinine 1.26 H (0.52-1.04) mg/dL Glucose 151 H (74-99) mg/dL Calcium 9.9 (8.4-10.2) mg/dL AST 27 (14-36) U/L ALT 29 (4-34) U/L Alkaline Phosphatase 59 (38-126) U/L Total Protein 7.2 (6.3-8.2) g/dL Albumin 4.7 (3.5-5.0) g/dL Current Medications Generic Name Dose Route Start Last Admin Trade Name Freq PRN Reason Stop Dose Admin Acetaminophen 650 mg 10/11/24 08:01 Acetaminophen Tab 325 Mg Tab PO Q6HR PRN Mild Pain or Fever > 100.5 Amiodarone HCl 100 mg 10/11/24 09:30 10/11/24 09:50 Amiodarone 100 Mg Tab PO 100 mg DAILY DAMARIS Administration Apixaban 5 mg 10/11/24 09:30 10/11/24 09:51 Apixaban 5 Mg Tab PO 5 mg BID DAMARIS Administration Protocol Azithromycin 500 mg 10/12/24 09:00 Azithromycin 500 Mg Tab PO 10/13/24 09:01 DAILY DAMARIS Protocol Clopidogrel Bisulfate 75 mg 10/11/24 09:30 10/11/24 09:50 Clopidogrel 75 Mg Tab PO 75 mg DAILY DAMARIS Administration Dextrose/Water 25 ml 10/11/24 09:22 Dextrose 50% Syringe 50 Ml IVP PER PROTOCOL PRN Hypoglycemia Protocol Dextrose/Water 50 ml 10/11/24 09:22 Dextrose 50% Syringe 50 Ml IVP PER PROTOCOL PRN Hypoglycemia Protocol Sodium Chloride 1,000 mls @ 75 mls/hr 10/11/24 08:15 10/11/24 08:18 Saline 0.9% IV 75 mls/hr .[id number] DAMARIS Administration Ceftriaxone Sodium 2 gm/ 50 mls @ 100 mls/hr 10/12/24 09:00 Sodium Chloride IVPB 10/15/24 09:29 Q24HR DAMARIS Protocol Insulin Aspart 0 unit 10/11/24 12:30 Insulin Aspart (Novolog) 100 Unit/Ml Vial SQ ACHS [facility] Protocol Levothyroxine Sodium 150 mcg 10/11/24 09:30 10/11/24 09:50 Levothyroxine 75 Mcg Tab PO 150 mcg DAILY@0630 DAMARIS Administration Metoprolol Succinate 50 mg 10/11/24 09:30 10/11/24 09:50 Metoprolol Succinate (Er) 50 Mg Tab.Er.24h PO 50 mg DAILY DAMARIS Administration Miscellaneous Information 1 each 10/11/24 09:19 Pneumonia Protocol Utilized 1 Each Misc PO ONCE PRN Per Protocol Naloxone HCl 0.2 mg 10/11/24 08:01 Naloxone 0.4 Mg/Ml 1 Ml Vial IV Q2M PRN Opioid Reversal Pravastatin Sodium 20 mg 10/11/24 21:00 Pravastatin Sodium 20 Mg Tab PO HS DAMARIS Intake and Output 10/10/24 10/11/24 10/11/24 22:59 06:59 14:59 Other: Weight 117.934 kg 10/11/24 06:51 10/11/24 06:51
--- NOTE | 2024-10-11 13:20 | P.HPIM ---
History of Present Illness H&P Date: 10/11/24 History of present illness; patient 73-year-old lady with past medical history significant for coronary artery disease, atrial fibrillation, diabetes mellitus, hyperlipidemia who presented to the ER because of chest pain that started this morning. Patient stated that she was all right this morning around 2 AM she started experiencing chest pain that was intermittent, pressure-like, central location, nonradiating, no aggravating or relieving factor associated with this chest pain. Patient was also complaining of shortness of breath at time. There was no complaint of orthopnea or PND. There was no episode of diaphoresis during this episode of chest pain. There is no complaint of swelling of feet. Patient denies any nausea or vomiting at the time. Patient took Tums to relieve the chest pressure but that did not help. Because of this patient came to the ER Initial lab work done in the ER showed WBC 11.9, hemoglobin 12.9, platelet count 157, sodium 139, potassium 3.9, BUN 17, creatinine 1.26, glucose 151, AST 27, ALT 29, alk phos 59, troponin 0.012 Influenza A not detected Influenza B not detected RSV not detected COVID-19 not detected EKG done in the ER showed heart rate of 67, no ST segment elevation or depression seen, no T-wave inversions seen. Chest x-ray done in the ER showed interval development of mild diffuse interstitial opacity reflecting either mild pulmonary congestion or interstitial inflammation/pneumonia Patient admitted to internal medicine service REVIEW OF SYSTEMS: CONSTITUTIONAL: No fever, no malaise, no fatigue. HEENT: No recent visual problems or hearing problems. Denied any sore throat. CARDIOVASCULAR: As mentioned above PULMONARY: As mentioned above GASTROINTESTINAL: No diarrhea, no nausea, no vomiting, no abdominal pain. NEUROLOGICAL: No headaches, no weakness, no numbness. HEMATOLOGICAL: Denies any bleeding or petechiae. GENITOURINARY: Denies any burning micturition, frequency, or urgency. MUSCULOSKELETAL/RHEUMATOLOGICAL: Denies any joint pain, swelling, or any muscle pain. ENDOCRINE: Denies any polyuria or polydipsia. The rest of the 14-point review of systems is negative. PHYSICAL EXAMINATION: GENERAL: The patient is alert and oriented x3, not in any acute distress. Well developed, well nourished. HEENT: Pupils are round and equally reacting to light. EOMI. No scleral icterus. No conjunctival pallor. Normocephalic, atraumatic. No pharyngeal erythema. No thyromegaly. CARDIOVASCULAR: S1 and S2 present. No murmurs, rubs, or gallops. PULMONARY: Chest is clear to auscultation, no wheezing or crackles. ABDOMEN: Soft, nontender, nondistended, normoactive bowel sounds. No palpable organomegaly. MUSCULOSKELETAL: No joint swelling or deformity. EXTREMITIES: No cyanosis, clubbing, or pedal edema. NEUROLOGICAL: Gross neurological examination did not reveal any focal deficits. SKIN: No rashes. Assessment and plan Chest pain rule out acute coronary syndrome Bacterial pneumonia History of coronary artery disease Atrial fibrillation Diabetes mellitus Monitor vital signs Monitor CBC Monitor CMP Continue telemetry monitoring Trend troponin Ordered D-dimer Ordered Pro-Memo Ordered blood cultures Ordered sputum cultures Start Rocephin azithromycin Resume home meds Consult cardiology Labs and medication were reviewed.. Continue same treatment. Continue with symptomatic treatment. Resume home medication. Monitor labs and vitals. DVT and GI prophylaxis. Further recommendations as per clinical course of the patient Dictation was produced using [employer] dictation software. please excuse any grammatical, word or spelling errors. Past Medical History Past Medical History: Atrial Fibrillation, Diabetes Mellitus, GERD/Reflux, Hyperlipidemia, Thyroid Disorder Additional Past Medical History / Comment(s): stress test 6 weeks ago. SOB w/exertion, see Dr Galvan H&P History of Any Multi-Drug Resistant Organisms: None Reported Past Surgical History: Ablation, Breast Surgery, Cardiac Ablation, Heart Catheterization With Stent, Tubal Ligation Additional Past Surgical History / Comment(s): lumpectomy right breast, CARDIOVERSION, COLONOSCOPY, ablation x3, heart cath with 2 stents 05/02/23 Past Anesthesia/Blood Transfusion Reactions: No Reported Reaction Date of Last Stent Placement:: 05/02/2023 Past Psychological History: No Psychological Hx Reported Smoking Status: Former smoker Past Alcohol Use History: None Reported Past Drug Use History: None Reported - Past Family History Mother Family Medical History: COPD Father Additional Family Medical History / Comment(s): cerebral hemorrhage. Sister(s) Family Medical History: Cancer Medications and Allergies Home Medications Medication Instructions Recorded Confirmed Type Levothyroxine Sodium 150 mcg PO DAILY 07/04/21 10/11/24 History Ergocalciferol [Vitamin D2 (1250 1,250 mcg PO TOMAS 11/27/22 10/11/24 History Mcg = 64863 Iu)] Clopidogrel [Plavix] 75 mg PO DAILY #90 tab 05/03/23 10/11/24 Rx Amiodarone HCl [Pacerone] 100 mg PO DAILY 06/21/23 10/11/24 History Apixaban [Eliquis] 5 mg PO BID 06/21/23 10/11/24 History Metoprolol Succinate [Toprol XL] 50 mg PO DAILY #90 tab 06/26/23 10/11/24 Rx Numaqula Areds 2 1 tab PO DAILY 10/11/24 10/11/24 History Pravastatin Sodium [Pravachol] 20 mg PO HS 10/11/24 10/11/24 History sitaGLIPtin PHOS/metFORMIN HCL 1 tab PO DAILY 10/11/24 10/11/24 History [Janumet Xr 50-500 mg Tablet] Allergies Allergy/AdvReac Type Severity Reaction Status Date / Time No Known Allergies Allergy Verified 10/11/24 09:03 Physical Exam Vitals: Vital Signs Temp Pulse Resp BP Pulse Ox 10/11/24 06:30 97.7 F 79 18 184/71 98 Intake and Output 10/10/24 10/11/24 10/11/24 22:59 06:59 14:59 Other: Weight 117.934 kg Results CBC & Chem 7: 10/11/24 06:51 10/11/24 06:51 Labs: Abnormal Lab Results - Last 24 Hours (Table) 10/11/24 10/11/24 10/11/24 Range/Units 06:51 06:51 08:06 WBC 11.9 H (3.8-10.6) k/uL RDW 17.3 H (11.5-15.5) % Neutrophils # 10.0 H (1.3-7.7) k/uL Creatinine 1.26 H (0.52-1.04) mg/dL Glucose 151 H (74-99) mg/dL Plasma Lactic Acid Tmi 2.8 H* (0.7-2.0) mmol/L
[2024-10-11 17:06] LABS: Glucose,Whole Blood 106 mg/dL (70-110)
[2024-10-11 20:26] LABS: Glucose,Whole Blood 124 mg/dL (70-110)
[2024-10-11] MEDS: PRAVASTATIN SODIUM 20 MG TAB PO SCH (21:50)
[2024-10-12] MEDS ORDERED: REGADENOSON 0.4 MG/5 ML SYRINGE IV PRN (05:00)
[2024-10-12 05:36] LABS: Glucose,Whole Blood 126 mg/dL (70-110)
--- NOTE | 2024-10-12 06:56 | XR ---
EXAMINATION TYPE: XR chest 2V DATE OF EXAM: 10/12/2024 6:43 AM COMPARISON: Chest radiographs from 10/11/2024 TECHNIQUE: XR chest 2V Frontal and lateral views of the chest. CLINICAL INDICATION:Female, 73 years old with history of Pneumonia; FINDINGS: Lungs/Pleura: No pleural effusion or pneumothorax. Similar mild diffuse interstitial opacity. Heart/mediastinum: Cardiomediastinal silhouette is prominent in size. Atherosclerotic calcifications are seen in the aorta. Musculoskeletal: No acute osseous pathology. IMPRESSION: Overall unchanged appearance of mild diffuse interstitial opacity reflecting mild pulmonary vascular congestion or interstitial inflammation/pneumonia. [facility], , 10/12/2024 6:53 AM
[2024-10-12 07:47] VITALS: RESP 16
[2024-10-12] MEDS ORDERED: REGADENOSON 0.4 MG/5 ML SYRINGE IV ONE (08:00)
[2024-10-12 08:42] LABS: ALT 17 U/L (8-44); AST 18 U/L (13-35); Albumin 3.9 g/dL (3.8-4.9); Albumin/Globulin Ratio 2.17 Ratio (1.60-3.17); Alkaline Phosphatase 54 U/L (41-126); BUN/Creat Ratio 10.75 Ratio (12.00-20.00); Blood Urea Nitrogen 12.9 mg/dL (9.0-27.0); Calcium 8.8 mg/dL (8.7-10.3); Carbon Dioxide 24.9 mmol/L (21.6-31.8); Chloride 105 mmol/L (96-109); Globulin 1.8 g/dL (1.6-3.3); Glucose 127 mg/dL (70-110); Potassium 4.1 mmol/L (3.5-5.5); Sodium 141 mmol/L (135-145); Total Bilirubin 0.6 mg/dL (0.3-1.2); Total Protein 5.7 g/dL (6.2-8.2)
[2024-10-12 10:08] LABS: Basophils # (A) 0.04 X 10*3/uL (0.00-0.10); Basophils % (A) 0.6 %; Eosinophils # (A) 0.19 X 10*3/uL (0.04-0.35); Eosinophils % (A) 2.8 %; HCT 35.6 % (37.2-46.3); HGB 11.1 g/dL (12.0-15.0); Lymphocytes # (A) 1.33 X 10*3/uL (0.90-5.00); Lymphocytes % (A) 19.8 %; MCH 27.7 pg (27.0-32.0); MCHC 31.2 g/dL (32.0-37.0); MCV 88.8 FL (80.0-97.0); Mean Platelet Volume 9.9 FL (9.5-12.2); Monocytes # (A) 0.57 X 10*3/uL (0.20-1.00); Monocytes % (A) 8.5 %; NRBC Per 100 WBC 0 X 10*3/uL (0.00-0.01); Neutrophils # (A) 4.56 X 10*3/uL (1.80-7.70); Neutrophils % (A) 67.9 %; Platelet Count 139 X 10*3/uL (140-440); RBC 4.01 X 10*6/uL (4.10-5.20); WBC 6.72 X 10*3/uL (4.50-10.00)
--- NOTE | 2024-10-12 10:29 | P.PN ---
Subjective This is a 73-year-old female patient of Dr. Galvan with past medical history of atrial fibrillation status post pulmonary vein isolation, nonischemic cardiomyopathy, hypothyroidism, atrial tachycardia refractory to ablation, history of tobacco use and dependence. We have been asked to evaluate the patient for chest pain. Patient states that she developed chest pressure but not pain. She initially thought she had gas and was trying to belch but this would not happen. She was feeling a little bit better for a while and then she ate half a sandwich and then she had the sensation again that she needed to belch. She states she has had some shortness of breath but she states this is chronic and she has this with any type of exertion. Blood pressure 164/79, heart rate 58, pulse ox 97% on room air. Patient is status post 500 cc bolus of IV fluid as well as antibiotics and has been resumed on her home cardiac medications. Patient is seen today in the emergency center waiting for a bed on the observation unit. On 09/11/2024 with plan for 3-day Holter monitor, nuclear stress testing prior to hip replacement surgery and follow-up in 9 months. -EKG: Sinus rhythm occasional PVCs. -Chest x-ray: Interval development of mild diffuse interstitial opacity reflecting either mild pulmonary vascular congestion or interstitial inflammatio n or pneumonia. -Laboratory studies: WBC 11.9, hemoglobin 12.9. Electrolytes are normal, BUN 17 creatinine 1.26. Lactic acid 1.8. Magnesium 1.9. Liver function test are normal. Troponins are negative x 2. C-reactive protein less than 0.5, proBNP 477. Cepheid viral panel negative. -Home cardiac medications: Amiodarone 100 mg daily, Eliquis 5 mg twice daily, Plavix 75 mg daily, Toprol XL 50 mg daily, pravastatin 20 mg at bedtime. Patient is also on levothyroxine. -Cardiac catheterization performed 05/02/2023 revealed a 70% calcific tubular mid LAD stenosis and underwent PCI of the LAD. -Echocardiogram performed 03/16/2022 reveals EF 50%. -Lexiscan Cardiolite stress test performed 04/15/2023 in the office revealed inconclusive EKG part of the stress test due to baseline EKG abnormalities. Abnormal nuclear scan showing reversible perfusion defect in the LAD distribution. -Ambulatory electrocardiogram for 3 days completed 08/20/2023 revealed sinus rhythm heart rates between 51 and 95 with average of 61 bpm. 72 episodes of nonsustained atrial tachycardia. 4% PVC burden and 2% PAC burden. 10/12/2024 Patient seen and examined resting comfortably in no acute distress. She has had no further chest pain in the previous 12 hours. Blood pressure 109/58 heart rate 61 afebrile maintaining oxygen saturation on room air. Laboratory data reviewed, hemoglobin 11.1, platelets 139, sodium 141, potassium 4.1, creatinine 1.2, hemoglobin A1c 5.4. She is also on antibiotics for bacterial pneumonia per primary care team. Physical examination: Gen: This is a 73-year-old obese female in no acute distress patient was last seen in the office HEENT: Head is atraumatic, normocephalic. Pupils equal, round. Sclerae is anicteric. NECK: Supple. No JVD. LUNGS: Clear to auscultation. No wheezes or rhonchi. No intercostal retractions. HEART: Regular rate and rhythm. No murmur. ABDOMEN: Soft No tenderness. EXTREMITIES: No pedal edema. No calf tenderness. NEUROLOGICAL: Patient is awake, alert and oriented x3. Assessment: Atypical chest pain, acute coronary syndrome ruled out CAD with prior stenting of the LAD in 2022 Persistent atrial fibrillation status post pulmonary vein ablation, currently in a sinus rhythm Nonischemic cardiomyopathy Hypothyroidism History of atrial tachycardia refractory to ablation Remote history of tobacco use and dependence Morbid obesity with BMI of 40 Plan: Echo and Lexiscan stress test planned for today. If normal she may be discharged home and follow-up with Dr. Galvan upon discharge. Nurse practitioner note has been reviewed, I agree with documented findings and plan of care. Patient was seen and examined. Objective - Vital Signs Vital signs: Vital Signs Temp 97.8 F 10/12/24 07:00 Pulse 61 10/12/24 07:00 Resp 16 10/12/24 07:00 BP 109/58 10/12/24 07:00 Pulse Ox 93 L 10/12/24 07:00 FiO2 Intake & Output 10/11/24 10/12/24 10/12/24 18:59 06:59 18:59 Intake Total 118 Balance 118 Weight 117.934 kg Intake: Oral 118 Other: Voiding Method Toilet # Voids 4 # Bowel Movements 1 - Labs CBC & Chem 7: 10/12/24 05:06 10/12/24 05:06 Labs: Abnormal Lab Results - Last 24 Hours (Table) 10/11/24 10/11/24 10/12/24 Range/Units 11:41 20:25 05:06 RBC 4.01 L (4.10-5.20) X 10*6/uL Hgb 11.1 L (12.0-15.0) g/dL Hct 35.6 L (37.2-46.3) % MCHC 31.2 L (32.0-37.0) g/dL RDW 17.0 H (11.5-14.5) % Plt Count 139 L (140-440) X 10*3/uL Est GFR (CKD-EPI) (>=60) BUN/Creatinine Ratio (12.00-20.00) Ratio Glucose (70-110) mg/dL POC Glucose (mg/dL) 185 H 124 H (70-110) mg/dL Total Protein (6.2-8.2) g/dL 10/12/24 10/12/24 Range/Units 05:06 05:34 RBC (4.10-5.20) X 10*6/uL Hgb (12.0-15.0) g/dL Hct (37.2-46.3) % MCHC (32.0-37.0) g/dL RDW (11.5-14.5) % Plt Count (140-440) X 10*3/uL Est GFR (CKD-EPI) 48 L (>=60) BUN/Creatinine Ratio 10.75 L (12.00-20.00) Ratio Glucose 127 H (70-110) mg/dL POC Glucose (mg/dL) 126 H (70-110) mg/dL Total Protein 5.7 L (6.2-8.2) g/dL
[2024-10-12] MEDS: AZITHROMYCIN 500 MG TAB PO SCH (11:12)
[2024-10-12 11:59] LABS: Glucose,Whole Blood 165 mg/dL (70-110)
--- NOTE | 2024-10-12 12:07 | NM ---
EXAMINATION TYPE: NM stress lexiscan cardiolite DATE OF EXAM: 10/12/2024 COMPARISON: NONE CLINICAL INDICATION: Female, 73 years old with history of Chest pain; TECHNIQUE: After the intravenous administration of 10.4 mCi Tc 99m Sestamibi - Cardiolite resting SP ECT images acquired 75 minutes post injection. The patient received 0.4mg Lexiscan, 26 mCi Tc 99m Sestamibi - Stress images obtained 40 minutes post injection FINDINGS: Review of stress and rest SPECT images demonstrates fixed perfusion defect along the anterolateral ap ical wall more pronounced on rest favoring attenuation artifact. No discrete reversibility is seen. Gated analysis shows normal wall motion with an estimated left ventricular ejection fraction of 55 %. However, TID is calculated elevated at 1.32. IMPRESSION: 1. Either attenuation artifact versus a small area of old infarct anterolateral apical wall. Clinical ly correlate. 2. While no discrete reversibility is clearly identified, the transient ischemic dilatation ratio is abnormally increased at 1.32. This can be seen in the setting of multivessel, global inducible ischem ia. Further evaluation as clinically indicated. 3. Estimated LVEF is borderline at 55%. [facility], Workstation: [email or web address], 10/12/2024 12:04 PM
--- NOTE | 2024-10-12 13:14 | CA ---
Lexiscan Nuclear Stress Test Report Name: Zakiya Ruano Exam Date: 10/12/2024 09:48 Exam Location: [facility] Ht (in): 67 Wt (lb): 260 BSA: 2.26 Ordering Phys: Tennille Armstrong Referring Phys: CAROLINA Technologist: JACQUELYN Age: 73 Gender: F : 1950 Procedure CPT: Indications: Reflex order-Stress test ICD-10 Codes: Patient History: CP, TEVIN, DM, CHOL hx ASCAD. Medications: Meds past 24 hrs: Pretest Chest Pain: STRESS TEST Lexiscan Protocol Exercise Duration (min:sec): 02:[address] Depressions (mm): Angina Score: Noel Score: Resting HR (bpm): 60 Peak HR (bpm): 78 Resting BP (mmHg): 149 / 77 Peak BP (mmHg): 193 / 98 MPHR: 148 Target HR: 126 % MPHR: 53 METS: 1.0 Total Dose: Peak Dose: Atropine: Double Product: 13779 BP Response: Stress Termination: Infusion complete. Stress Symptoms: No chest pain or symptoms Stress Summary: ECG ANALYSIS Resting ECG: Stress ECG: CONCLUSIONS Baseline EKG reveals a normal sinus rhythm with inferolateral nonspecific ST depression of nearly half to 1 mm. With Lexiscan administration the heart rate changed from 60 to 70 bpm and the blood pressure changed from 149/77 to 160/84. Patient was asymptomatic EKG remained inconclusive. By EKG criteria this is an inconclusive Lexiscan stress test because of resting EKG changes. The nuclear scan results which are more pertinent will be reported by the radiologist Dr. Felice Mcdonald MD (Electronically Signed) Final Date: 12 October 2024 13:13
[2024-10-12 14:18] VITALS: BP 139/70; PULSE 55; TEMP 97.7
--- NOTE | 2024-10-14 09:41 | CDI ---
Documentation Clarification Form Date: 10/14/2024 09:24:00 AM From: Jacey Hercules Admit Date: 10/11/2024 07:49:00 AM Patient Name: Zakiya Ruano Visit Number: [id number] Discharge Date: 10/12/2024 02:28:00 PM ATTENTION: The Clinical Documentation Specialists (CDI) and [facility] Coding Staff appreciate your assistance in clarifying documentation. Please respond to the clarification below the line at the bottom and electronically sign. The CDI & [facility] Coding staff will review the response and follow-up if needed. Please note: Queries are made part of the Legal Health Record. If you have any questions, please contact the author of this message via ITS. Doctor/Provider: Keagan Mcfarland Bacterial pneumonia is documented in the H and P. No further documentation of pneumonia throughout the chart. Additional clarification regarding pneumonia is requested. History/Risk Factors: CAD, Morbid obesity, diabetes, cardiomyopathies Clinical Indicators: WBC/Left shift: 17.4 X-ray: Interval development of mild diffuse interstitial opacity reflecting either mild pulmonary vascular congestion ofr interstitial inflammation/pneumonia. Treatment: IV antibiotics Antibiotics Zithromax Rocephin Please clarify if patient had bacterial pneumonia or was this ruled:: [ ] Bacterial Pneumonia, specify causal organism (if known) [x ] Gram Negative Bacterial Pneumonia [ ] Bacterial Pneumonia Due to Strep [ ] Bacterial Pneumonia Due to Staph [ ] Bacterial Pneumonia Due to E. Coli [ ] Bacterial pneumonia ruled out [ ] Other bacteria (please specify) [ ] Viral Pneumonia, specify casual organism (if known) [ ] Ventilator Associated Pneumonia [ ] Other, please specify [ ] Unable to determine MTDD
--- NOTE | 2024-10-14 20:58 | P.DS ---
Providers Date of admission: 10/11/24 07:49 Attending physician: Kayley Andrade Consults: 10/11/24 08:01 Consult Physician Urgent Consulting Provider: Mane Galvan Consult Reason/Comments: chest pain Do you want consulting provider notified?: Yes Primary care physician: Josselin Guerrero Hospital Course: Final Diagnosis Chest pain rule out acute coronary syndrome Chest xray findings likely sequela of recent upper respiratory infection, viral. No antibiotics needed. History of coronary artery disease Atrial fibrillation Diabetes mellitus Discharge Disposition Patient is stable for discharge home. Lexiscan negative. Continue same home medications. Follow up with Dr. Galvan in the office in 1 to 2 weeks. Follow up with PCP Dr. Josselin Guerrero 1 to 2 days. Hospital Course History of present illness; patient 73-year-old lady with past medical history significant for coronary artery disease, atrial fibrillation, diabetes mellitus, hyperlipidemia who presented to the ER because of chest pain that started the morning of admission. Patient stated that around 2 AM she started experiencing chest pain that was intermittent, pressure-like, central location, nonradiating, no aggravating or relieving factor associated with this chest pain. Patient was also complaining of shortness of breath at time. There was no complaint of orthopnea or PND. There was no episode of diaphoresis during this episode of chest pain. There is no complaint of swelling of feet. Patient denies any nausea or vomiting at the time. Patient took Tums to relieve the chest pressure but that did not help. Because of this patient came to the ER. Patient does state she had a cold last week and feeling significanlty improved. Initial lab work done in the ER showed WBC 11.9, hemoglobin 12.9, platelet count 157, sodium 139, potassium 3.9, BUN 17, creatinine 1.26, glucose 151, AST 27, ALT 29, alk phos 59, troponin 0.012. Viral panel negative. EKG done in the ER showed heart rate of 67, no ST segment elevation or depression seen, no T-wave inversions seen. Chest x-ray done in the ER showed interval development of mild diffuse interstitial opacity reflecting either mild pulmonary congestion or interstitial inflammation/pneumonia. Patient admitted to internal medicine service. Patient was started on azithromycin and rocephin empirically. procalcitonin level was normal. D-Dimer was not elevated. Patients chest pain has resolved. She went for lexiscan stress test which was reviewed by cardiology and negative. Patient cleared for discharge home. Please see medication reconciliation for a list of current medications. Thank you for allowing us to participate in the care of this patient. The impression and plan of care has been dictated by Aleisha Sherman, Nurse Practitioner as directed. Dr. Magdalena MD I have performed a history and physical examination and medical decision making of this patient, discussed the same with the dictator, and agree with the dictators assessment and plan as written, documented as a scribe. Based on total visit time, I have performed more than 50% of this visit. Patient Condition at Discharge: Stable Plan - Discharge Summary Discharge Rx Participant: No New Discharge Prescriptions: New Amiodarone [Cordarone] 100 mg PO DAILY #30 tab Apixaban [Eliquis] 5 mg PO BID #60 tab Continue Ergocalciferol [Vitamin D2 (1250 Mcg = 02985 Iu)] 1,250 mcg PO TOMAS Metoprolol Succinate [Toprol XL] 50 mg PO DAILY #90 tab Pravastatin Sodium [Pravachol] 20 mg PO HS sitaGLIPtin PHOS/metFORMIN HCL [Janumet Xr 50-500 mg Tablet] 1 tab PO DAILY Levothyroxine Sodium 150 mcg PO DAILY Clopidogrel [Plavix] 75 mg PO DAILY #90 tab Numaqula Areds 2 1 tab PO DAILY Discontinued Apixaban [Eliquis] 5 mg PO BID Amiodarone HCl [Pacerone] 100 mg PO DAILY Discharge Medication List Levothyroxine Sodium 150 mcg PO DAILY 07/04/21 [History] Ergocalciferol [Vitamin D2 (1250 Mcg = 76505 Iu)] 1,250 mcg PO TOMAS 11/27/22 [History] Clopidogrel [Plavix] 75 mg PO DAILY #90 tab 05/03/23 [Rx] Metoprolol Succinate [Toprol XL] 50 mg PO DAILY #90 tab 06/26/23 [Rx] Numaqula Areds 2 1 tab PO DAILY 10/11/24 [History] Pravastatin Sodium [Pravachol] 20 mg PO HS 10/11/24 [History] sitaGLIPtin PHOS/metFORMIN HCL [Janumet Xr 50-500 mg Tablet] 1 tab PO DAILY 10/11/24 [History] Amiodarone [Cordarone] 100 mg PO DAILY #30 tab 10/12/24 [Rx] Apixaban [Eliquis] 5 mg PO BID #60 tab 10/12/24 [Rx] Follow up Appointment(s)/Referral(s): Mane Galvan MD [STAFF PHYSICIAN] - 10/26/24 10:00 am (Appointment made at the main office ) Josselin Guerrero MD [Primary Care Provider] - 1-2 days Patient Instructions/Handouts: Chest Pain (DC) Discharge Disposition: HOME SELF-CARE
== END 2024-10-12 14:28 | disposition home or self-care (01) | DRG 178 ==
LOC: EC 06:29 → OBSVTOIN 07:49 → 6NMEDSUR 07:49 → UNDODISOB 10-12 14:28
PROVIDERS: ADMIT Hospitalist; ATTEND Hospitalist
DX: J15.69 Pneumonia due to other Gram-negative bacteria (principal); I42.8 Other cardiomyopathies; E66.01 Morbid (severe) obesity due to excess calories; E11.9 Type 2 diabetes mellitus without complications; E03.9 Hypothyroidism, unspecified; I47.19 Other supraventricular tachycardia; I48.19 Other persistent atrial fibrillation; Z68.41 Body mass index [BMI] 40.0-44.9, adult; R07.89 Other chest pain; I25.10 Atherosclerotic heart disease of native coronary artery without angina pectoris; I49.3 Ventricular premature depolarization; E78.5 Hyperlipidemia, unspecified; Z79.01 Long term (current) use of anticoagulants; Z79.02 Long term (current) use of antithrombotics/antiplatelets; Z79.890 Hormone replacement therapy; Z79.899 Other long term (current) drug therapy; Z87.891 Personal history of nicotine dependence; Z95.5 Presence of coronary angioplasty implant and graft; Z96.649 Presence of unspecified artificial hip joint; Z20.822 Contact with and (suspected) exposure to COVID-19; Z79.84 Long term (current) use of oral hypoglycemic drugs; K21.9 Gastro-esophageal reflux disease without esophagitis
CPT/HCPCS: 36415; 71046; 78452; 80053; 83036; 83605; 83735; 83880; 84145; 84484; 85025; 85379; 85610; 85652; 85730; 86140; 87040; 87449; 87636; 93005; 93017; 96365; 96366; 99285